=== PATIENT | female | born 1945 | race Caucasian/White ===

== ENCOUNTER 2018-03-07 22:17 | Inpatient (IN) | payer OTHER ==
[~2018-03-07] VITALS: Ht 157.5 cm; Wt 55.5 kg
--- NOTE | ~2018-03-07 | HEMODYNAMI ---
PATIENT:RAMON PIERCE MEDICAL RECORD: [id number] : 49 [address] [id number] ADMISSION DATE: 03/08/18 Generatedon:03/09/201810:59 Patient name: RAMON PIERCE Patient #: [id number] SSN: : 1945 Date of study: 03/09/2018 Page: Of Hemodynamic Procedure Report Patient Data Patient Demographics Procedure consent was obtained First Name: RAMON Gender: Female Last Name: STAN : 1945 Patient #: [id number] Age: 72 year(s) Race: Unknown Additional ID: [id number] Contact details Address: [address] [place] [address] State: [place] City: [place] Zip code: [address] Past Medical History Allergies: No known allergies Admission Admission Data Admission Date: 03/08/2018 Admission Time: 0:08 Room #: [facility] Height (in.): 61.81 BSA: 1.55 (m2) Height (cm.): 157 BMI: 22.72 (kg/m2) Weight (lbs.): 123.46 Weight (kg.): 56 Procedure Procedure Types Cath Procedure Diagnostic Procedure C [facility] w/Coronaries FFR/IVUS Intra-Coronary IVUS Initial Intra-Coronary IVUS Additional Sedation Charges Moderate Sedation up to 15 minutes PCI Procedure Coronary Stent Coronary Stent Initial x2 Procedure Description Procedure Date Procedure Date: 03/09/2018 Procedure Start Time: 10:39 Procedure End Time: 10:57 Procedure Staff Name Function Dagoberto Douglass MD Performing Physician Cristine Willingham RN Nurse Gera Glass RT Scrub Eleni Rayo RT Monitor Procedure Data Cath Procedure Fluoroscopy Diagnostic fluoroscopy Total fluoroscopy Time: 5.2 time: 5.2 min min Diagnostic fluoroscopy Total fluoroscopy dose: 411 dose: 411 mGy mGy Contrast Material Contrast Material Type Amount (ml) Isovue 300 155 Entry Location Entry Primary Successful Side Size Upsize Upsize Entry Closure Estrada ccessful Closure Location (Fr) 1 (Fr) 2 (Fr) Remarks Device Remarks Radial Right 6 Fr Mechanical artery Short Compression Estimated blood loss: 10 ml Diagnostic catheters Device Type Used For End Catheter Placement DIAGNOSTIC Zavalla 110cm 5 Procedure Fr catheter ([id number]) Procedure Complications No complications Procedure Medications Medication Administration Route Dosage 0.9% NaCl I.V. 100 ml/hr Oxygen etCO2 Nasal cannula 2 l/min Lidocaine 2% added to field 20 Heparin Flush Bag added to field 2 bags (1000units/500ml NS) Radial Cocktail added to field 1 syringe (Verapomil 2mg/Nitro 400mcg/Heparin 1500units) Versed I.V. 2 mg Fentanyl I.V. 50 mcg Heparin Bolus I.V. 4000 units Integrilin (Bolus I.V. 5 ml 2mg/ml) Versed I.V. 1 mg Fentanyl I.V. 25 mcg Plavix P.O. 600 mg Hemodynamics Rest BSA: 1.55 (m2) O2 Consumption: Estimated: 151.17 (ml/min) O2 Consumption indexed : Estimated:97.53 (ml/min/m) Heart Rate: 84 (bpm) Snapshots Pre Cath Intra NCS Post Cath Vital Signs Time Heart Resp SPO2 etCO2 NIBP Rhythm Pain Sedation Rate (ipm) (%) (mmHg) (mmHg) Status Level (bpm) 10:27:56 112 17 96 24.2 117/68(97) NSR 0 (11) 10(A) , No pain 10:32:10 108 27 96 24.9 109/64(82) NSR 0 (11) 10(A) , No pain 10:37:06 105 26 97 25.7 95/62(76) NSR 0 (11) 10(A) , No pain 10:41:17 102 20 96 26 82/47(62) NSR 0 (11) 10(A) , No pain 10:45:18 96 22 96 27.8 98/59(74) NSR 0 (11) 9(A) , No pain 10:49:24 100 20 99 20 103/63(84) NSR 0 (11) 10(A) , No pain 10:53:30 101 24 99 23.4 109/68(88) NSR 0 (11) 10(A) , No pain Medications Time Medication Route Dose Verified Delivered Reason Not es Effectiveness by by 10:32:34 0.9% NaCl I.V. 100 Dagoberto Cristine used for ml/hr Evonne Willingham online user experience strategist 10:32:41 Oxygen etCO2 2 l/min Dagoberto Cristine used for Nasal Evonne Willingham procedure cannula RN 10:32:46 Lidocaine 2% added 20ml Dagoberto Dagoberto for local to vial Evonne Douglass MD anesthetic field 10:32:51 Heparin Flush added 2 bags Dagoberto Hendricksonrey used for Bag to Evonne Douglass MD procedure (1000units/500ml field NS) 10:32:57 Radial Cocktail added 1 Dagoberto Dagoberto used for (Verapomil to syringe Evonne Douglass MD procedure 2mg/Nitro field 400mcg/Heparin 1500units) 10:37:40 Versed I.V. 2 mg Dagoberto Cristine for sedation Evonne Willingham RN 10:37:45 Fentanyl I.V. 50 mcg Dagoberto Cristine for sedation Evonne Willingham RN 10:42:42 Versed I.V. 1 mg Dagoberto Cristine for sedation Evonne Willingham RN 10:42:48 Fentanyl I.V. 25 mcg Dagoberto Cristine for sedation Evonne Willingham RN 10:43:55 Heparin Bolus I.V. 4000 Dagoberto Cristine for soraida ified units Evonne Willingham anticoagulation with Dr. NILE Douglass 10:45:14 Integrilin I.V. 5 ml Dagoberto Cristine for was rj (Bolus 2mg/ml) Evonne Willingham anticoagulation 5mL RN 10:49:10 Plavix P.O. 600 mg Dagoberto Cristine for Evonne Willingham antiplatelet RN therapy Procedure Log Time Note 10:08:30 Signed procedure consent form obtained from patient. 10:08:31 Diagnostic Cath status Elective 10:08:34 Time tracking: Regular hours (M-F 7:00 - 5:00) 10:08:38 Plan of Care:Hemodynamics will remain stable., Cardiac rhythm will remain stable., Comfort level will be maintained., Respiratory function will remain adequate., Patient/ family verbilizes understanding of procedure., Procedure tolerated without complication., Recovers from procedure without complications.. 10:08:58 Patient allergic to No known allergies 10:09:29 Patient Weight : 123.46 lbs 10:09:35 Patient Height : 61.81 inches 10:09:45 Gera Glass RT(R) sent for patient. Start room use. 10:21:59 Patient received from ICU to CCL 1 Alert and oriented. Tansferred to table in Supine position. 10:22:01 Warm blankets applied, and ethan hugger turned on for patient comfort. 10:22:01 Correct patient and procedure confirmed by team. 10:22:02 ECG and BP/O2 sat monitors applied to patient. 10:26:45 Vital chart was started 10:32:34 0.9% NaCl 100 ml/hr I.V. was administered by Cristine Willingham RN; used for procedure; 10:32:41 Oxygen 2 l/min etCO2 Nasal cannula was administered by Cristine Willingham RN; used for procedure; 10:32:46 Lidocaine 2% 20ml vial added to field was administered by Dagoberto Douglass MD; for local anesthetic; 10:32:51 Heparin Flush Bag (1000units/500ml NS) 2 bags added to field was administered by Dagoberto Douglass MD; used for procedure; 10:32:57 Radial Cocktail (Verapomil 2mg/Nitro 400mcg/Heparin 1500units) 1 syringe added to field was administered by Dagoberto Douglass MD; used for procedure; 10:34:55 Baseline sample Acquired. 10:34:59 Rhythm: sinus tachycardia 10:35:00 Full Disclosure recording started 10:35:01 Pre-procedure instructions explained to patient. 10:35:02 Pre-op teaching completed and patient verbalized understanding. 10:35:04 Family in patients room. 10:35:05 Patient NPO since Midnight. 10:35:07 Is patient on blood thinner?No 10:35:08 Patient diabetic? No. 10:35:18 Patient not . Patient is over age 55. 10:35:20 Previous problem with sedation/anesthesia? No ? 10:35:21 Snore? Yes 10:35:22 Sleep apnea? No 10:35:23 Deviated septum? No 10:35:24 Opens mouth fully? Yes 10:35:25 Sticks out tongue? Yes 10:35:28 Airway obstruction? Yes COPD' 10:35:35 Dentures? Yes IN TIGHT 10:35:38 Modified Inderjit's test Ulnar < 7 seconds 10:35:40 Patient pain scale 0/10 ?. 10:35:47 IV patent on arrival in right forearm with 0.9% NaCl at O. 10:35:50 Lab results completed and on chart. 10:35:53 Right Radial & Right Groin area was prepped with chlora-prep and draped in sterile fashion 10:35:55 Alarms reviewed by R. N. 10:35:55 Sharps counted by scrub and verified by R.N. 10:35:56 --------ALL STOP TIME OUT------ 10:35:56 Final Timeout: patient, procedure, and site verified with staff and physician. All members of the team are in agreement. 10:35:58 Right Radial & Right Groin site verified by team. 10:36:03 Sedation plan: IV Moderate Sedation Medication:Versed, Fentanyl 10:36:06 Physical assessment completed. ASA score P 2 - A patient with mild systemic disease as per Dagoberto Douglass MD. 10:36:09 Use device set Radial Dx or PCI 10:36:10 ACIST Syringe (10727) opened to sterile field. 10:36:11 Medline Cath Pack ([id number]) opened to sterile field. 10:36:12 ACIST Hand Control (54500) opened to sterile field. 10:36:12 ACIST Manifold (53282) opened to sterile field. 10:36:13 Tegaderm 4 x 4 (1626W) opened to sterile field. 10:36:14 Bag Decanter (2002S) opened to sterile field. 10:36:15 DIAGNOSTIC WIRE .035 260cm J wire (967725) opened to sterile field. 10:36:15 MBrace Wrist Support ([id number]) opened to sterile field. 10:36:17 SHEATH 6FR Slender (43-1289) opened to sterile field. 10:37:40 Versed 2 mg I.V. was administered by Crisitne Willingham RN; for sedation; 10:37:45 Fentanyl 50 mcg I.V. was administered by Cristine Willingham RN; for sedation; 10:38:42 Procedure started. 10:39:50 Local anesthetic to right radial artery with Lidocaine 2% by Dagoberto Douglass MD.INITIAL ACCESS ONLY 10:40:04 A 6 Fr Short sheath was inserted into the Right Radial artery 10:40:15 A DIAGNOSTIC Zavalla 110cm 5 Fr catheter (536388) was advanced over the wire and used for Procedure. 10:40:33 LV gram done using SPRING 10:40:35 Injector settings: Ml/sec: 7, Volume: 15, 10:41:00 EF : 20 % 10:42:04 LCA angiography performed. 10:42:26 RCA angiography performed. 10:42:31 Catheter exchanged over wire. 10:42:42 Versed 1 mg I.V. was administered by Cristine Willingham RN; for sedation; 10:42:48 Fentanyl 25 mcg I.V. was administered by Cristine Willingham RN; for sedation; 10:42:54 INFLATOR Merit BasixCompak (MN1114) opened to sterile field. 10:42:55 CHOICE PT Extra Support 182cm wire ([id number]) opened to sterile field. 10:42:55 [place] IVUS Catheter (18352L) opened to sterile field. 10:43:02 GUIDE 6FR XBLAD 3.5 catheter ([id number]) opened to sterile field. 10:43:50 6 Fr XBLAD 3.5 guide catheter was inserted over the wire 10:43:55 Heparin Bolus 4000 units I.V. was administered by Cristine Willingham RN; for anticoagulation; verified with Dr. Douglass 10:44:29 CHOICE ES 182 wire advanced. 10:44:48 Wire advanced across lesion. 10:45:14 Integrilin (Bolus 2mg/ml) 5 ml I.V. was administered by Cristine Willingham RN; for anticoagulation; wasted 5mL 10:46:02 IVUS catheter advanced over wire. 10:46:03 IVUS pass to LMCA AND LAD lesion performed. 10:46:04 IVUS catheter removed over wire. 10:47:47 Place stent Inflation Number: 1 A INTEGRITY RX 3.5 x 26 stent ([id number]) was prepped and advanced across the Mid LAD. The stent was deployed at 13 DANIEL for 0:10 (min:sec). 10:48:10 Stent catheter was removed intact over wire. 10:48:14 Wire redirected to RAMUS. 10:48:19 Wire advanced across lesion. 10:49:10 Plavix 600 mg P.O. was administered by Cristine Willingham RN; for antiplatelet therapy; 10:49:36 Inflate balloon Inflation number: 1 A INTEGRITY RX 2.5 x 18 stent ([id number]) was prepped and advanced across the Ramus, then inflated to 13 DANIEL for 0:13 (min:sec). 10:49:57 Stent catheter was removed intact over wire. 10:52:33 Place stent Inflation Number: 2 A INTEGRITY RX 2.5 x 14 stent ([id number]) was prepped and advanced across the Ramus. The stent was deployed at 13 DANIEL for 0:10 (min:sec). 10:53:32 Stent catheter was removed intact over wire. 10:53:33 Wire removed. 10:53:33 Guide catheter removed. 10:53:45 Procedure ended.(Physican Out) 10:53:55 TR BAND Standard ([id number]) opened to sterile field. 10:54:02 Sheath removed intact; hemostasis achieved with Mechanical Compression to the Right Radial artery. 10:54:07 Fluoroscopy time 05.20 minutes. 10:54:11 Fluoroscopy dose: 411 mGy 10:54:11 Flurop Dose total: 411 10:54:14 Contrast amount:Isovue 300 155ml. 10:54:16 Sharps counted by scrub and verified by R.N. 10:54:18 TR band inflated with 13cc of air. 10:54:22 Post-procedure physical assessment completed. ASA score P 2 - A patient with mild systemic disease as per Dagoberto Douglass MD. 10:54:26 Post procedure rhythm: sinus tachycardia 10:54:28 Estimated blood loss: 10 ml 10:54:29 Post procedure instruction explained to patient.Patient verbalizes understanding. 10:54:30 Patient needs reinforcement of post procedure teaching. 10:55:40 Procedure type changed to Cath procedure, Diagnostic procedure, LHC, LHC w/Coronaries, FFR/IVUS, Intra-Coronary IVUS Initial, Intra-Coronary IVUS Additional, Sedation Charges, Moderate Sedation up to 15 minutes, PCI procedure, Coronary Stent, Coronary Stent Initial x2 10:56:32 Procedure and supply charges have been captured, reviewed, submitted and are correct. 10:56:34 Procedure Complication : No complications 10:56:37 Vital chart was stopped 10:56:37 See physician's report for complete and final results. 10:56:40 Report given to ICU. 10:56:57 Patient transfered to ICU with Bed. 10:56:59 Procedure ended. 10:56:59 Full Disclosure recording stopped 10:57:02 End room use (Document Last) Intervention Summary Intervention Notes Time ActionType Lesion and Equipment Action# Pressure Duration Attributes Used 10:47:47 Place stent Mid LAD INTEGRITY RX 1 13 00:10 3.5 x 26 stent ([id number]) 10:49:36 Inflate Ramus INTEGRITY RX 1 13 00:13 balloon 2.5 x 18 stent ([id number]) 10:52:33 Place stent Ramus INTEGRITY RX 2 13 00:10 2.5 x 14 stent ([id number]) Device Usage Item Name Manufacture Quantity Catalog Number Hospital Part Current Mini mal Lot# / Charge Number Stock Stock Serial# Code ACIST Acist 1 60092 671375 284170 445986 20 Syringe Medical (09446) Systems Inc Medline Cath Medline 1 [id number] 054083 89098 783733 5 Pack ([id number]) ACIST Hand Acist 1 60495 203380 674961 202002 5 Control Medical (68867) Systems Inc ACIST Acist 1 46565 301109 566716 449604 5 Manifold Medical (17879) Systems Inc Tegaderm 4 x 3M 1 1626W 702207 292450 075725 5 4 (1626W) Bag Decanter Microtek 1 2002S 341733 94288 339289 5 (2002S) Medical Inc. DIAGNOSTIC St Kish[place] 1 079151 926467 615996 727767 30 WIRE .035 260cm J wire (000415) MBrace Wrist Advanced 1 140-0250-00 460199 50730 595465 5 Support Vascular ([id number]) Dynamics SHEATH 6FR Terumo 1 [id number] 723142 785518 346955 5 Slender (80-1060) DIAGNOSTIC Terumo 1 40-2943 002935 229911 376886 5 Zavalla 110cm 5 Fr catheter (331133) INFLATOR Merit 1 [id number] 068787 093206 831196 15 [facility] Medical BasixCompak (HA3049) CHOICE PT [place] 1 [id number] 332561 679251 396773 5 Extra Scientific Support 182cm wire ([id number]) [place] 1 60905F 995238 999880 167823 8 [place] IVUS Catheter (39139I) GUIDE 6FR Cardinal 1 [id number] 152837 949964 973825 10 XBLAD 3.5 Health catheter (89676974) INTEGRITY RX Medtronic 1 [id number] 598549 625744 848590 5 [id number] 3.5 x 26 stent ([id number]) INTEGRITY RX Medtronic 1 [id number] 337973 381456 590741 5 [id number] 2.5 x 18 stent ([id number]) INTEGRITY RX Medtronic 1 [id number] 759335 533674 987154 5 [id number] 2.5 x 14 stent ([id number]) TR BAND Terumo 1 [id number] 694803 883867 429205 40 Standard ([id number]) Signature Audit [place] Stage Time Signature Unsigned Intra-Procedure 03/09/2018 Eleni Rayo 10:59:30 AM RT(R) Signatures Monitor : Eleni Rayo Signature : RT Date : Time : [place] [address] [place] [address]
--- NOTE | ~2018-03-07 | HEMODYNAMI ---
PATIENT:RAMON PIERCE MEDICAL RECORD: [id number] : 49 [address] [id number] ADMISSION DATE: 03/08/18 Generatedon:03/10/20189:29 Patient name: RAMON PIERCE Patient #: [id number] SSN: : 1945 Date of study: 03/10/2018 Page: Of Hemodynamic Procedure Report Patient Data Patient Demographics Procedure consent was obtained First Name: RAMON Gender: Female Last Name: STAN : 1945 Patient #: [id number] Age: 72 year(s) Race: Unknown Additional ID: [id number] Contact details Address: [address] [place] [address] State: [place] City: [place] Zip code: [address] Past Medical History Allergies: No known allergies Admission Admission Data Admission Date: 03/08/2018 Admission Time: 0:08 Room #: [facility] Height (in.): 61.81 BSA: 1.58 (m2) Height (cm.): 157 BMI: 23.53 (kg/m2) Weight (lbs.): 127.87 Weight (kg.): 58 Lab Results Lab Result Date: 03/10/2018 Lab Result Time: 0:00 Biochemistry Name Units Result Min Max BUN mg/dl 31 --(----)-* 7 18 Creatinine mg/dl 1.3 --(---*)-- 0.6 1.3 CBC Name Units Result Min Max Hemoglobin g/dl 11.9 *-(----)-- 13.5 17.5 Procedure Procedure Types Cath Procedure Diagnostic Procedure Sedation Charges Moderate Sedation up to 15 minutes PCI Procedure Coronary Stent Coronary Stent Initial Procedure Description Procedure Date Procedure Date: 03/10/2018 Procedure Start Time: 9:07 Procedure End Time: 9:28 Procedure Staff Name Function Dagoberto Douglass MD Performing Physician Eleni Rayo RT Scrub Cristine Willingham RN Nurse Kami Hyatt RN Car Park Attendant Avelino Canela RT Monitor Procedure Data Cath Procedure Fluoroscopy Diagnostic fluoroscopy Total fluoroscopy Time: 7.5 time: 7.5 min min Diagnostic fluoroscopy Total fluoroscopy dose: 492 dose: 492 mGy mGy Contrast Material Contrast Material Type Amount (ml) Isovue 300 75 Entry Location Entry Primary Successful Side Size Upsize Upsize Entry Closure Succes sful Closure Location (Fr) 1 (Fr) 2 (Fr) Remarks Device Remarks Femoral Right 6 Fr Exoseal artery Short Estimated blood loss: 10 ml Procedure Complications No complications Procedure Medications Medication Administration Route Dosage 0.9% NaCl I.V. 100 ml/hr Oxygen etCO2 Nasal cannula 2 l/min Lidocaine 2% added to field 20 Heparin Flush Bag added to field 2 bags (1000units/500ml NS) Versed I.V. 2 mg Fentanyl I.V. 50 mcg Versed I.V. 2 mg Fentanyl I.V. 50 mcg Heparin Bolus I.V. 4000 units Hemodynamics Rest BSA: 1.58 (m2) HGB: 11.9 (g/dl) O2 Consumption: Estimated: 172.01 (ml/min) O2 Co nsumption indexed: Estimated:108.87 (ml/min/m) Heart Rate: 114 (bpm) Snapshots Pre Cath Intra NCS Post Cath Vital Signs Time Heart Resp SPO2 etCO2 NIBP (mmHg) Rhythm Pain Sedation Rate (ipm) (%) (mmHg) Status Level (bpm) 8:42:15 116 16 96 28.8 130/91(114) NSR 0 (11) 10(A) , No pain 8:46:23 114 16 96 25.7 123/90(112) NSR 0 (11) 10(A) , No pain 8:50:30 112 16 97 24.2 120/80(95) NSR 0 (11) 10(A) , No pain 8:54:38 108 18 96 25.6 116/75(98) NSR 0 (11) 10(A) , No pain 8:58:46 107 18 96 27.8 112/76(92) NSR 0 (11) 10(A) , No pain 9:02:52 106 21 96 20.7 114/72(90) NSR 0 (11) 9(A) , No pain 9:07:00 105 18 97 20 114/74(85) NSR 0 (11) 10(A) , No pain 9:11:10 103 21 95 20 107/68(89) NSR 0 (11) 9(A) , No pain 9:15:15 102 27 96 20 107/68(83) NSR 0 (11) 9(A) , No pain 9:19:21 102 27 97 20 106/71(88) NSR 0 (11) 10(A) , No pain 9:23:23 96 21 98 21.5 119/77(98) NSR 0 (11) 10(A) , No pain 9:27:31 103 25 95 0 123/76(93) NSR 0 (11) 10(A) , No pain Medications Time Medication Route Dose Verified Delivered Reason Notes Effectiveness by by 8:41:24 0.9% NaCl I.V. 100 Dagoberto Cristine used for ml/hr Evonne Willingham home management supervisor 8:41:32 Oxygen etCO2 2 Dagoberto Cristine used for Nasal l/min Evonne Willingham procedure cannula RN 8:41:38 Lidocaine 2% added 20ml Dagoberto Dagoberto for local to vial Evonne Douglass MD anesthetic field 8:41:42 Heparin Flush added 2 Dagoberto Dagoberto used for Bag to bags Evonne Douglass MD procedure (1000units/500ml field NS) 9:00:20 Versed I.V. 2 mg Dagoberto Cristine for sedation Evonne Willingham RN 9:00:25 Fentanyl I.V. 50 Dagoberto Cristine for sedation mcg Evonne Willingham RN 9:08:23 Versed I.V. 2 mg Dagoberto Cristine for sedation Evonne Willingham RN 9:08:28 Fentanyl I.V. 50 Dagoberto Cristine for sedation mcg Evonne Willingham RN 9:08:34 Heparin Bolus I.V. 4000 Dagoberto Cristine for verifi ed units Evonne Willingham anticoagulation with Dr. NILE Douglass Procedure Log Time Note 8:27:57 Kami Hyatt RN sent for patient. Start room use. 8:27:58 Signed procedure consent form obtained from patient. 8:28:00 Diagnostic Cath status Elective 8:28:01 Time tracking: Regular hours (M-F 7:00 - 5:00) 8:28:01 Patient Weight : 127.87 lbs 8:28:01 Patient Height : 61.81 inches 8:28:05 Plan of Care:Hemodynamics will remain stable., Cardiac rhythm will remain stable., Comfort level will be maintained., Respiratory function will remain adequate., Patient/ family verbilizes understanding of procedure., Procedure tolerated without complication., Recovers from procedure without complications.. 8:28:34 Lab Result : BUN 31 mg/dl 8::34 Lab Result : Hemoglobin 11.9 g/dl 8:28:34 Lab Result : Creatinine 1.3 mg/dl 8:29:01 Patient allergic to No known allergies 8:33:38 Patient received from Med II to CCL 1 Alert and oriented. Tansferred to table in Supine position. 8:33:39 Warm blankets applied, and ethan hugger turned on for patient comfort. 8:33:40 Correct patient and procedure confirmed by team. 8:33:41 ECG and BP/O2 sat monitors applied to patient. 8:41:14 Vital chart was started 8:41:24 0.9% NaCl 100 ml/hr I.V. was administered by Cristine Willingham RN; used for procedure; 8:41:32 Oxygen 2 l/min etCO2 Nasal cannula was administered by Cristine Willingham RN; used for procedure; 8:41:38 Lidocaine 2% 20ml vial added to field was administered by Dagoberto Douglass MD; for local anesthetic; 8:41:42 Heparin Flush Bag (1000units/500ml NS) 2 bags added to field was administered by Dagoberto Douglass MD; used for procedure; 8:46:26 Baseline sample Acquired. 8:46:32 Rhythm: sinus tachycardia 8:46:33 Full Disclosure recording started 8:46:42 H&P Date Dictated: 03/08/2018 Within 30 days and on chart.. 8:46:43 Pre-procedure instructions explained to patient. 8:46:43 Pre-op teaching completed and patient verbalized understanding. 8:46:45 Family in patients room. 8:46:46 Patient NPO since Midnight. 8:46:48 Is the patient allergic to Iodine/contrast media? No. 8:46:49 Is patient on blood thinner?Yes 8:46:51 ACC The patient was administered the following blood thiners within the last 24 hours: ACCPlavix 8:46:53 Patient diabetic? No. 8:46:55 Previous problem with sedation/anesthesia? No ? 8:46:56 Snore? Yes 8:46:57 Sleep apnea? No 8:46:58 Deviated septum? No 8:46:59 Opens mouth fully? Yes 8:46:59 Sticks out tongue? Yes 8:47:03 Airway obstruction? Yes COPD 8:47:09 Dentures? Yes IN TIGHT 8:47:14 Pre procedure: right dorsailis pedis pulse 2+ Normal; easily identifiable; not easily obliterated 8:47:17 Patient pain scale 0/10 ?. 8:47:22 IV patent on arrival in right forearm with 0.9% NaCl at [facility]. 8:47:24 Lab results completed and on chart. 8:47:26 Right groin area was prepped with chlora-prep and draped in sterile fashion 8:47:27 Alarms reviewed by R. N. 8:47:27 Sharps counted by scrub and verified by R.N. 8:47:30 ACIST Syringe (91679) opened to sterile field. 8:47:31 Bag Decanter (2002S) opened to sterile field. 8:47:32 ACIST Hand Control (12389) opened to sterile field. 8:47:33 ACIST Manifold (93821) opened to sterile field. 8:47:34 Tegaderm 4 x 4 (1626W) opened to sterile field. 8:47:38 Medline Cath Pack ([id number]) opened to sterile field. 8:47:39 DIAGNOSTIC WIRE .035 260cm J wire (857361) opened to sterile field. 8:47:52 CHOICE PT Extra Support 182cm wire ([id number]) opened to sterile field. 8:47:52 INFLATOR Merit BasixCompak (BY6438) opened to sterile field. 8:47:53 SHEATH 6FR [place] (EUR168) opened to sterile field. 8:52:29 Zero performed for pressure channel P1 8:59:38 Physician arrived 8:59:38 --------ALL STOP TIME OUT------ 8:59:38 Final Timeout: patient, procedure, and site verified with staff and physician. All members of the team are in agreement. 8:59:41 Right groin site verified by team. 8:59:43 Physical assessment completed. ASA score P 2 - A patient with mild systemic disease as per Dagoberto Douglass MD. 8:59:46 Sedation plan: IV Moderate Sedation Medication:Versed, Fentanyl 9:00:20 Versed 2 mg I.V. was administered by Cristine Willingham RN; for sedation; 9:00:25 Fentanyl 50 mcg I.V. was administered by Cristine Willingham RN; for sedation; 9:01:06 GUIDE 6FR AR 2.0 catheter ([id number]) opened to sterile field. 9:07:10 Procedure started. 9:07:12 Local anesthetic to right femoral artery with Lidocaine 2% by Dagoberto Douglass MD.INITIAL ACCESS ONLY 9:07:19 A 6 Fr Short sheath was inserted into the Right Femoral artery 9:07:42 6 Fr AR 2 guide catheter was inserted over the wire 9:08:23 Versed 2 mg I.V. was administered by Cristine Willingham RN; for sedation; 9:08:28 Fentanyl 50 mcg I.V. was administered by Cristine Willingham RN; for sedation; 9:08:34 Heparin Bolus 4000 units I.V. was administered by Cristine Willingham RN; for anticoagulation; verified with Dr. Douglass 9:10:03 Guide Catheter removed. unable to cannulate vessel. 9:10:08 GUIDE 6FR HS I catheter (LA6HSI) opened to sterile field. 9:10:14 6 Fr HS I guide catheter was inserted over the wire 9:12:28 Guide Catheter removed. unable to cannulate vessel. 9:12:56 GUIDE 6FR MB 1 catheter (LA6MB1) opened to sterile field. 9:13:05 6 Fr MB 1 guide catheter was inserted over the wire 9:13:57 CHOICE PT ES wire advanced. 9:15:41 Wire advanced across lesion. 9:18:22 The INTEGRITY RX 2.5 x 26 stent ([id number]) was advanced then removed because of failure to cross lesion 9:19:29 Inflate balloon Inflation number: 1 A EUPHORA 2.5 x 15 Balloon ([id number]) was prepped and advanced across the Mid RCA, then inflated to 11 DANIEL for 0:10 (min:sec). 9:19:40 Inflation number: 2 The EUPHORA 2.5 x 15 Balloon ([id number]) was reinflated across the Mid RCA, to 13 DANIEL for 0:10 (min:sec). 9:19:53 Inflation number: 3 The EUPHORA 2.5 x 15 Balloon ([id number]) was reinflated across the Mid RCA, to 13 DANIEL for 0:10 (min:sec). 9:20:00 Balloon removed over the wire. 9:20:50 Place stent Inflation Number: 4 A INTEGRITY RX 2.5 x 26 stent ([id number]) was prepped and advanced across the Mid RCA. The stent was deployed at 13 DANIEL for 0:10 (min:sec). 9:20:56 Inflation number: 5 The stent balloon was then re-inflated across the Mid RCA to 17 DANIEL for 0:10 (min:sec). 9:22:01 Stent catheter was removed intact over wire. 9:24:08 Place stent Inflation Number: 1 A INTEGRITY RX 2.5 x 26 stent ([id number]) was prepped and advanced across the Prox RCA. The stent was deployed at 17 DANIEL for 0:10 (min:sec). 9:24:10 Stent catheter was removed intact over wire. 9:24:12 Wire removed. 9:24:12 Guide catheter removed. 9:24:19 EXOSEAL 6Fr (EX600) opened to sterile field. 9:24:28 Sheath removed intact; hemostasis achieved with Exoseal to the Right Femoral artery. 9:24:30 Procedure ended.(Physican Out) 9:25:16 Fluoroscopy time 07.50 minutes. 9:25:21 Flurop Dose total: 492 9:25:21 Fluoroscopy dose: 492 mGy 9:25:30 Contrast amount:Isovue 300 75ml. 9:25:32 Sharps counted by scrub and verified by R.N. 9:25:34 Insertion/operative site no bleeding no hematoma. 9:25:36 Post-op/insertion site Right Femoral artery dressed using a 4 x 4 and Tegaderm. 9:25:41 Post right femoral artery:stable, soft, clean and dry 9:25:42 Post Procedure Pulses reassessed and unchanged 9:25:50 Post-procedure physical assessment completed. ASA score P 3 - A patient with severe systemic disease as per Dagoberto Douglass MD. 9:26:13 FEMSTOP Gold (O10802) opened to sterile field. 9:26:20 Femstop placed over the right femoral artery at 150 mmHg. Hemostasis achieved. 9::52 Post procedure rhythm: unchanged. 9::54 Estimated blood loss: 10 ml 9::55 Post procedure instruction explained to patient.Patient verbalizes understanding. 9::56 Patient needs reinforcement of post procedure teaching. 9:27:29 Procedure type changed to Cath procedure, Diagnostic procedure, Sedation Charges, Moderate Sedation up to 15 minutes, PCI procedure, Coronary Stent, Coronary Stent Initial 9::48 Procedure and supply charges have been captured, reviewed, submitted and are correct. 9:27:50 Procedure Complication : No complications 9::52 Vital chart was stopped 9::53 See physician's report for complete and final results. 9::54 Report given to ICU. 9::57 Patient transfered to ICU with Stretcher. 9:28:00 Procedure ended. 9:28:00 Full Disclosure recording stopped 9:28:09 ACC-PCI Only Patient was given prescriptions, or instructed by Dagoberto Douglass MD to start/continue the following medications upon discharge: Aspirin, Plavix 9:28:11 End room use (Document Last) Intervention Summary Intervention Notes Time ActionType Lesion and Equipment Action# Pressure Duration Attributes Used 9:18:22 Discard INTEGRITY RX Stent 2.5 x 26 stent ([id number]) 9:19:29 Inflate Mid RCA EUPHORA 2.5 1 11 00:10 balloon x 15 Balloon ([id number]) 9:19:40 Reinflate Mid RCA EUPHORA 2.5 2 13 00:10 balloon x 15 Balloon ([id number]) 9:19:53 Reinflate Mid RCA EUPHORA 2.5 3 13 00:10 balloon x 15 Balloon ([id number]) 9:20:50 Place stent Mid RCA INTEGRITY RX 4 13 00:10 2.5 x 26 stent ([id number]) 9:20:56 Reinflate Mid RCA INTEGRITY RX 5 17 00:10 stent 2.5 x 26 balloon stent ([id number]) 9:24:08 Place stent Prox RCA INTEGRITY RX 1 17 00:10 2.5 x 26 stent ([id number]) Device Usage Item Name Manufacture Quantity Catalog Number Hospital Part Current [facility] Lot# / Charge Number Stock Stock Serial# Code [facility] 1 06386 790587 013741 372181 20 Syringe Medical (15754) Systems Inc Bag Decanter Microtek 1 2001S 677565 20846 605507 5 (2001S) Medical Inc. ACIST Hand Acist 1 33217 346297 207216 547735 5 Control Medical (23399) Systems Inc ACIST Acist 1 08429 110243 323654 663120 5 Manifold Medical (49843) Systems Inc Tegaderm 4 x 3M 1 1626W 350417 705351 351035 5 4 (1626W) Medline Cath Medline 1 [id number] 437021 27430 687428 5 Pack ([id number]) DIAGNOSTIC St Kishan 1 971378 130402 576393 434116 30 WIRE .035 260cm J wire (826180) CHOICE PT [place] 1 [id number] 363661 132159 104705 5 Extra Scientific Support 182cm wire ([id number]) INFLATOR Big Six 1 NC3643 657722 657805 703162 15 Gogetit BasixCompak (SG3954) SHEATH 6FR Terumo 1 RYN833 638033 589990 814770 40 [place] (BEX589) GUIDE 6FR AR Medtronic 1 [id number] 265128 33947 953676 1 2.0 catheter (AO6VF98) GUIDE 6FR HS Medtronic 1 LA6HSI 973664 93096 459743 1 I catheter (LA6HSI) GUIDE 6FR MB Medtronic 1 LA6MB1 912411 02356 749619 1 1 catheter (LA6MB1) INTEGRITY RX Medtronic 2 [id number] 634089 213901 484044 5 [id number] 2.5 x 26 [id number] stent ([id number]) EUPHORA 2.5 Medtronic 1 [id number] 343984 392903 033545 5 [id number] x 15 Balloon ([id number]) EXOSEAL 6Fr Cardinal 1 EX600 470086 706968 975138 10 (EX600) Health FEMSTOP Gold St Kishan 1 Y98059 977466 224956 755341 5 (A34557) Signature Audit [place] Stage Time Signature Unsigned Intra-Procedure 03/10/2018 Avelino Canela 9:29:09 AM RT(R) Signatures Monitor : Avelino Canela RT Signature : Date : Time : [address] [place] [address]
[2018-03-07] MEDS ORDERED: MULTIVITAMIN (22:30)
[2018-03-07] MEDS ORDERED: PRINIVIL20 MG PO (22:30)
[2018-03-07 23:23] LABS: BASOPHILS 0.4 % (0-2); EOSINOPHILS 0.7 % (0-7); HEMATOCRIT 42.7 % (36.0-48.0); HEMOGLOBIN 14.2 g/dL (12-16); IMMATURE GRANULOCYTES 0.2 % (0-5); LYMPHOCYTES 25.8 % (15-50); MCH 34.1 pg (26.0-34.0); MCHC 33.3 g/dL (31.0-37.0); MCV 102.6 fL (80.0-100.0); MEAN PLATELET VOLUME 10.8 fL (7.4-10.4); MONOCYTES 4.7 % (2-11); NEUTROPHILS 68.2 % (40-80); PLATELET COUNT 301 10x3/uL (130-400); RBC 4.16 10x6/uL (4.00-5.40); RDW 15.1 % (11.5-14.5); WBC 10.6 10x3/uL (4.8-10.8)
--- NOTE | 2018-03-07 23:23 | NUR ---
INCREASED PROPOFOL TO 10MCG/KG/MIN BP 127/77
[2018-03-07 23:25] VITALS: BP 122/72
--- NOTE | 2018-03-07 23:30 | NUR ---
UPPED PROPOFOL TO 15 MCG/KG/MIN AT THIS TIME. BP 145/93
[2018-03-07 23:31] LABS: APTT 24.8 SECONDS (22.8-39.4); PROTIME 12.7 SECONDS (11.6-15.0)
[2018-03-07 23:37] LABS: ALBUMIN 3.3 g/dL (3.4-5.0); ALKALINE PHOSPHATASE 92 U/L (46-116); ALT (SGPT) 64 U/L (10-68); BILIRUBIN - TOTAL 0.16 mg/dL (0.2-1.3); CALC OSMOLALITY 293 mosm/kg (275-300); CALCIUM 8.1 mg/dL (8.5-10.1); CARBON DIOXIDE 22.6 mmol/L (21.0-32.0); CHLORIDE - SERUM 101 mmol/L (98-107); CREATININE - SERUM 1.5 mg/dL (0.6-1.3); GLUCOSE 372 mg/dL (74-106); POTASSIUM - SERUM 4.1 mmol/L (3.5-5.1); PROTEIN - SERUM 7.2 g/dL (6.4-8.2); SODIUM 137 mmol/L (136-145); UREA NITROGEN 27 mg/dL (7-18); eGFR NON AFRICAN AMERICAN 36 mL/min (90-120)
[2018-03-07 23:51] VITALS: BP 96/41
--- NOTE | 2018-03-07 23:51 | NUR ---
INCREASED PROPOFOL TO 25 MCG/KG/MIN PER EDP MARILUZ. BP 96/41 AT THIS TIME
[2018-03-07 23:52] LABS: CKMB 3.7 U/L (0.0-3.6); CREATINE KINASE 105 UL (21-215); MAGNESIUM - SERUM 1.9 mg/dL (1.8-2.4); PRO BNP 26563 pg/mL (0-125)
[2018-03-07 23:53] LABS: TROPONIN-I 0.084 ng/mL (0.000-0.060)
[2018-03-08] VITALS (33 sets, daily range): BP systolic 77–142; BP diastolic 29–98; Ht 157.5 cm; Wt 55.5 kg
--- NOTE | 2018-03-08 00:20 | NUR ---
CALLED REPORT TO BROCK DOWD
--- NOTE | 2018-03-08 01:10 | NUR ---
Received patient from ER to 2312 via bed, connected to monitor. Patient sedated on vent with eyes closed, coarse sounds noted bilateral upper and mid with diminished lower lobes. Oral care/suctioning provided, repositioned for comfort. No further needs at this time, see flowsheet for details. All VSS and will continue to monitor.
--- NOTE | 2018-03-08 01:35 | NUR ---
Dr Garcia called and notified of consult, informed Dr Howard to see patient in AM.
--- NOTE | 2018-03-08 03:20 | NUR ---
Reassessment completed per flowsheet, no changes from previous assessment. Patient opens eyes spontaneous/follows instructions, slight agitation noted. Vent settings unchanged, coarse lung sounds noted bilateral upper and mid with diminished lower. All pulses palpable with cap refill < 3 sec, skin warm/dry. Denies pain at this time, oral care/suctioning provided. See flowsheet for details, all VSS and will continue to monitor.
[2018-03-08 03:57] LABS: BASOPHILS 0.1 % (0-2); EOSINOPHILS 0 % (0-7); HEMATOCRIT 39.4 % (36.0-48.0); HEMOGLOBIN 13.4 g/dL (12-16); IMMATURE GRANULOCYTES 0.3 % (0-5); LYMPHOCYTES 2.6 % (15-50); MCH 34.3 pg (26.0-34.0); MCV 100.8 fL (80.0-100.0); MEAN PLATELET VOLUME 10.6 fL (7.4-10.4); PLATELET COUNT 296 10x3/uL (130-400); RBC 3.91 10x6/uL (4.00-5.40); RDW 14.9 % (11.5-14.5); WBC 13.2 10x3/uL (4.8-10.8)
[2018-03-08 04:32] LABS: ANION GAP 16.7 mmol/L (8-16); CALCIUM 7.7 mg/dL (8.5-10.1); CARBON DIOXIDE 23.4 mmol/L (21.0-32.0); CREATININE - SERUM 1.3 mg/dL (0.6-1.3); POTASSIUM - SERUM 4.1 mmol/L (3.5-5.1)
[2018-03-08 04:50] LABS: TROPONIN-I 0.485 ng/mL (0.000-0.060)
--- NOTE | 2018-03-08 05:00 | NUR ---
Patient sedated in bed on vent with eyes closed, no s/s of distress at this time. Sedation vacation performed with patient awakening easily, some anxiety observed due to ETT. Discussed need for ventilator with patient, nodded understanding. Sedation returned to previous amount, patient returned to sleep easily. All VSS and will continue to monitor.
--- NOTE | 2018-03-08 07:15 | NUR ---
REPORT RECEIVED. ASSESSMENT COMPLETE PER FLOW SHEET. VSS. PT SEDATED COMFORTABLE FOLLOWS COMMANDS DENIES NEEDS. ORAL ENODTRACH CARE ADM. REPOSITIONED ON L SIDE. WILL CONTINUE TO MONITOR
--- NOTE | 2018-03-08 11:15 | NUR ---
REASSESSMENT COMPLETE PER FLOW SHEET. VSS. NO NEW CHANGES. AT BEDSIDE. WILL CONTINUE TO MONITOR
--- NOTE | 2018-03-08 13:30 | NUR ---
RT AT BEDSIDE. PT EXTUBATED WITHOUT DIFFICULTY. VSS NO NEW CHANGES WILL CONTINUE TO MONITOR
--- NOTE | 2018-03-08 15:28 | NUR ---
REASSESSMENT COMPLETE PER FLOW SHEET. VSS. NO NEW CHANGES WILL CONTINUE TO MONITOR
--- NOTE | 2018-03-08 19:30 | NUR ---
REC'D TO CARE, ELECTRIC ARC FURNACE OPERATOR PER FLOWSHEET. PT ALERT AND ORINENTED, VSS. CM - ST. LUNGS CTA. O2 4LNC, WILL WEAN PER MD ORDER TOLERATED. PT DENIES PAIN OR NEEDS. C/L IN REACH.
--- NOTE | 2018-03-08 21:00 | NUR ---
NO VISITORS, PT WATCHING TV. DENIES NEEDS.
--- NOTE | 2018-03-08 22:55 | NUR ---
REASSESSMENT PER FLOWSHEET, NO ACUTE CHANGES. VSS. C/L IN REACH.
[2018-03-09] VITALS (24 sets, daily range): BP systolic 93–135; BP diastolic 53–82
--- NOTE | 2018-03-09 01:00 | NUR ---
RESTING QUIETLY, VSS. NPO NOW.
--- NOTE | 2018-03-09 03:13 | NUR ---
REASSESSMENT PER FLOWSHEET, NO ACUTE CHANGES. PT AWAKENS EASILY, VSS. O2 2L NC. PT DENIES NEEDS. ALARMS ON AND C/L IN REACH.
[2018-03-09 04:01] LABS: BASOPHILS 0.1 % (0-2); EOSINOPHILS 0 % (0-7); HEMATOCRIT 35.1 % (36.0-48.0); HEMOGLOBIN 11.9 g/dL (12-16); IMMATURE GRANULOCYTES 0.3 % (0-5); LYMPHOCYTES 8.2 % (15-50); MCH 33.8 pg (26.0-34.0); MCHC 33.9 g/dL (31.0-37.0); MCV 99.7 fL (80.0-100.0); MEAN PLATELET VOLUME 10.4 fL (7.4-10.4); NEUTROPHILS 80.4 % (40-80); PLATELET COUNT 253 10x3/uL (130-400); RBC 3.52 10x6/uL (4.00-5.40); RDW 15.1 % (11.5-14.5); WBC 10.9 10x3/uL (4.8-10.8)
[2018-03-09 04:25] LABS: ANION GAP 14.9 mmol/L (8-16); CALCIUM 7.4 mg/dL (8.5-10.1); CARBON DIOXIDE 24.3 mmol/L (21.0-32.0); CREATININE - SERUM 1.3 mg/dL (0.6-1.3); MAGNESIUM - SERUM 1.6 mg/dL (1.8-2.4); PHOSPHOROUS 2.9 mg/dL (2.5-4.9); POTASSIUM - SERUM 4.2 mmol/L (3.5-5.1)
[2018-03-09] MEDS ORDERED: MERIBIN5 MG PO (04:37)
[2018-03-09] MEDS ORDERED: NIASPAN500 MG PO (04:38)
[2018-03-09] MEDS ORDERED: CALCIUM 500 +1 EAC3 PO (04:38)
[2018-03-09] MEDS ORDERED: [UNRECOGNIZED DRUG - OTHER] (04:39)
--- NOTE | 2018-03-09 05:00 | NUR ---
UPDATED OVER PHONE WITH PT APPROVAL AND [facility] PASSWORD SET UP. PT RESTING QUIETLY, DENIES NEEDS.
--- NOTE | 2018-03-09 07:00 | NUR ---
REPORT RECEIVED. ASSESSMENT COMPLETE PER FLOW SHEET. VSS. NO NEW CHANGES. PT RESTING COMFORTABLY WILL CONTINUE TO MONITOR
--- NOTE | 2018-03-09 10:15 | NUR ---
PT TO ARCHAEOLOGIST NOTIFIED AND AT BEDSIDE.
--- NOTE | 2018-03-09 11:06 | NUR ---
PT BACK FROM [facility] MACHINIST VSS. NOT IN THE WAITING AREA AT THIS TIME. ATTEMPT TO CALL X2 NO ANSWER. WILL TRY AGAIN
--- NOTE | 2018-03-09 11:15 | NUR ---
REASSESSMENT COMPLETE PER FLWO SHEET. VSS. NO NEW CHANGES WILL CONTNIUE TO MONITOR.
--- NOTE | 2018-03-09 13:06 | NUR ---
PT SLEEPING COMFORTABLY AT BEDSIDE NO NEW CAHNGES WILL CONTINUE TO MONITOR
--- NOTE | 2018-03-09 15:00 | NUR ---
REASSESSMENT COMPLETE PER FLOW SHEET. VS. NO NEW CHANGES WILL CONTINUE TO MONTIOR
--- NOTE | 2018-03-09 17:40 | NUR ---
ASSISTED TO SHOWER. NO S/S DISTRESS BACK TO BED. COMPLETE BATH LINEN CHANGE ADM. NO ENW CHANGES WILL CONTINUE TO MONITOR
--- NOTE | 2018-03-09 18:41 | MORECARE ---
CASE MANAGEMENT DISCHARGE SUMMARY PATIENT: RAMON PIERCE UNIT: [id number] ADM DATE: 03/08/18 AGE: 72 : [birth year] SEX: F ROOM/BED: D[facility] AUTHOR: IDRIS EDOUARD PHYSICIAN: REFERRING PHYSICIAN: TAMI RUIZ MD DATE OF SERVICE: 03/09/18 Discharge Plan Patient Name: RAMON PIERCE [facility] [facility] 1945 Planned Disposition: Home Anticipated Discharge Date: Discharge Date: Expected LOS: Initial Reviewer: [email or web address] Initial Review Date: 03/09/2018 Generated: 03/09/18 7:41 pm DCPIA - Discharge Planning Initial Assessment Updated by [email or web address]: Alanis Cavazos on 03/09/18 6:41 pm * Is the patient Alert and Oriented? Yes * How many steps to enter\exit or inside your home? * [facility] [place] * [place] * Preadmission Environment Home with Family * ADLs Independent * Equipment None * List name and contact numbers for known caregivers / representatives who currently or will assist patient after discharge: OMA PIERCE - [facility] - [phone] * Verbal permission to speak to the caregivers and representatives has been obtained from the patient. N/A * Community resources currently utilized None * Additional services required to return to the preadmission environment? No * Can the patient safely return to the preadmission environment? Yes * Has this patient been hospitalized within the prior 30 days at any hospital? No Patient Name: RAMON PIERCE Page 17784 at 1841 All edits/amendments must be made on the electronic document DICTATION DATE: 03/09/181840 CONTRACT POST OFFICE CLERK: EMILY 03/09/181840 RPT#: [id number] DC DATE: STATUS: ADM IN [facility] [address] [place] [address] END OF REPORT
--- NOTE | 2018-03-09 18:48 | MORECARE ---
CASE MANAGEMENT DISCHARGE SUMMARY PATIENT: RAMON PIERCE UNIT: [id number] ADM DATE: 03/08/18 AGE: 72 : [birth year] SEX: F ROOM/BED: D.2312 AUTHOR: JAVAN,DOC PHYSICIAN: REFERRING PHYSICIAN: TAMI RUIZ MD DATE OF SERVICE: 03/09/18 Discharge Plan Patient Name: RAMON PIERCE Facility: [facility]:[place] : 1945 Planned Disposition: Home Anticipated Discharge Date: Discharge Date: Expected LOS: Initial Reviewer: [email or web address] Initial Review Date: 03/09/2018 Generated: 03/09/18 7:47 pm Comments DCP- Discharge Planning Updated by [email or web address]: Alanis Cavazos on 03/09/18 5:[address] Patient Name: RAMON PIERCE Admission Status: ER Accout number: [id number] Admission Date: 03-08-2018 : 1945 Admission Diagnosis: Attending: TAMI RUIZ Current LOS: 1 Anticipated DC Date: Planned Disposition: Home Primary Insurance: [employer] Discharge Planning Comments: CM met with patient at bedside. Patient states she plans on returning to her home with her after discharge. Patient denies any medical equipment in the home or home health services prior to admission. Patient denies any discharge needs. CM will continue to follow and assist as needed with discharge planning / needs. Residential Insurance Inspector: Alanis Cavazos DCPIA - Discharge Planning Initial Assessment Updated by [email or web address]: Alanis Cavazos on 03/09/18 6:41 pm * Is the patient Alert and Oriented? Yes * How many steps to enter\exit or inside your home? * [facility] [place] [facility] * Preadmission Environment Home with Family * ADLs Independent * Equipment None * List name and contact numbers for known caregivers / representatives who currently or will assist patient after discharge: OMA PIERCE - - [phone] * Verbal permission to speak to the caregivers and representatives has been obtained from the patient. N/A * Community resources currently utilized None * Additional services required to return to the preadmission environment? No * Can the patient safely return to the preadmission environment? Yes * Has this patient been hospitalized within the prior 30 days at any hospital? No Last DP export: 03/09/18 5:41 p Patient Name: RAMON PIERCE Page 35336 at 1848 All edits/amendments must be made on the electronic document DICTATION DATE: 03/09/181846 BOAT DISPATCHER: EMILY 03/09/181846 RPT#: [id number] DC DATE: STATUS: ADM IN [facility] [address] [place] [address] END OF REPORT
--- NOTE | 2018-03-09 23:30 | NUR ---
REASSESSMENT PER FLOWSHEET, NO ACUTE CHANGES. VSS. C/L IN REACH.
[2018-03-10] VITALS (10 sets, daily range): BP systolic 98–140; BP diastolic 56–97
[2018-03-10 03:49] LABS: BASOPHILS 0.2 % (0-2); EOSINOPHILS 0.5 % (0-7); HEMATOCRIT 34.5 % (36.0-48.0); HEMOGLOBIN 11.7 g/dL (12-16); IMMATURE GRANULOCYTES 0.2 % (0-5); LYMPHOCYTES 11.3 % (15-50); MCH 34.1 pg (26.0-34.0); MCHC 33.9 g/dL (31.0-37.0); MCV 100.6 fL (80.0-100.0); MEAN PLATELET VOLUME 10.1 fL (7.4-10.4); MONOCYTES 9.7 % (2-11); NEUTROPHILS 78.1 % (40-80); PLATELET COUNT 241 10x3/uL (130-400); RBC 3.43 10x6/uL (4.00-5.40); RDW 15.5 % (11.5-14.5); WBC 9.5 10x3/uL (4.8-10.8)
[2018-03-10 04:16] LABS: ANION GAP 14.6 mmol/L (8-16); CALCIUM 7.3 mg/dL (8.5-10.1); CARBON DIOXIDE 23.3 mmol/L (21.0-32.0); MAGNESIUM - SERUM 1.9 mg/dL (1.8-2.4); POTASSIUM - SERUM 3.9 mmol/L (3.5-5.1)
[2018-03-10 04:20] LABS: PHOSPHOROUS 2.1 mg/dL (2.5-4.9)
--- NOTE | 2018-03-10 07:15 | NUR ---
REPORT RECEIVED. ASSESSMENT COMPELTE PER FLOW SHEET. VSS. NO NEW CHANGES PT RESTING COMFORTABLY DENIES NEEDS WILL CONTNIUE TO MONITOR
--- NOTE | 2018-03-10 09:01 | NUR ---
PT PREOP'D SENT TO ACCESS SERVICES LIBRARIAN VSS UPDATED
--- NOTE | 2018-03-10 10:00 | NUR ---
PT BACK FROM MOISTURE METER READER GIVEN UPDATE. AT BEDSIDE.
--- NOTE | 2018-03-10 15:26 | NUR ---
RECEIVED PT FROM ICU VIA WHEELCHAIR. PT IS AAO AND UP AD RODGER. VSS AND WNL. RR EVEN AND UNLABORED ON RA. R.GROIN CATH SITE IS C/D/I. PERIPHERAL PULSES EVEN AND BILATERAL. KIM IN PLACE AND DARK HEMATURIA OBSERVED. AT BEDSIDE. PT CURRENTLY LYING SEMI FOWLERS. CALL LIGHT W/I REACH. NS INFUSING @100ML/HR VIA R.FOR PIV. WILL CTM.
--- NOTE | 2018-03-10 18:22 | NUR ---
PT CURRENTLY LYING SEMI FOWLERS. CALL LIGHT W/I REACH. KIM IN PLACE AND 700ML OF HEMATURIA OUTPUT RECORDED. PT DENIES ANY NEEDS AT THIS TIME. WILL PASS REPORT AND CONTINUE WITH POC.
--- NOTE | 2018-03-10 19:54 | NUR ---
RESUMED CARE OF PT, LYING IN BED RESPIRATIONS EVEN AND UNLABORED ON ROOM AIR. [address] ST ON TELEMETRY. RIGHT WRIST AND R GROIN C/D/I. KMI TO GRAVITY, DARK YELLOW URINE IN TUBE. NO NEEDS VOICED AT THIS TIME. PLAN OF CARE DISCUSSED. CALL LIGHT IN REACH. SEE NURSE ASSESSMENT.
[2018-03-11] VITALS: BP 113/61
[2018-03-11 04:00] VITALS: BP 122/73
--- NOTE | 2018-03-11 06:35 | NUR ---
NO CHANGES FROM PREVIOUS ASSESSMENT. URINE IS BACK TO RED TINGED. WILL CONTINUE TO MONITOR COLOR. AM MEDS GIVEN.
[2018-03-11 07:04] LABS: CALCIUM 7.8 mg/dL (8.5-10.1); CARBON DIOXIDE 22.1 mmol/L (21.0-32.0); CREATININE - SERUM 0.9 mg/dL (0.6-1.3); POTASSIUM - SERUM 4.1 mmol/L (3.5-5.1)
[2018-03-11 07:12] LABS: BASOPHILS 0.1 % (0-2); EOSINOPHILS 0.5 % (0-7); HEMOGLOBIN 11.4 g/dL (12-16); IMMATURE GRANULOCYTES 0.3 % (0-5); LYMPHOCYTES 14.5 % (15-50); MCH 33.6 pg (26.0-34.0); MCHC 33.5 g/dL (31.0-37.0); MCV 100.3 fL (80.0-100.0); MEAN PLATELET VOLUME 10.9 fL (7.4-10.4); MONOCYTES 11.7 % (2-11); NEUTROPHILS 72.9 % (40-80); PLATELET COUNT 255 10x3/uL (130-400); RBC 3.39 10x6/uL (4.00-5.40); RDW 15.7 % (11.5-14.5); WBC 10.2 10x3/uL (4.8-10.8)
--- NOTE | 2018-03-11 07:30 | NUR ---
RESTING QUIETLY EYES CLOSED RESP UNLABORED
[2018-03-11] MEDS ORDERED: OMNICEF300 MG PO (08:12)
[2018-03-11] MEDS ORDERED: PROTONIX40 MG PO (08:13)
[2018-03-11] MEDS ORDERED: PLAVIX75 MG PO (08:13)
[2018-03-11] MEDS ORDERED: ALBUTEROL SULF8.5 GM INH (08:13)
[2018-03-11] MEDS ORDERED: PREDNISONE20 MG PO (08:14)
[2018-03-11] MEDS ORDERED: ASPIRIN81 MG PO (08:15)
[2018-03-11 08:22] VITALS: BP 139/95
--- NOTE | 2018-03-11 11:20 | NUR ---
REVIEWED DISCHARGE INSTRUCTIONS WITH PT STATES UNDERSTANDING COPY GIVEN DCD SALINE LOCK TO RFA WITH IV CATHETER INTACT SITE FREE OF REDNESS OR EDEMA PT DISCHARGED HOME LEFT UNIT VIA W/C IN STABLE CONDITION WITH ALL PERSONAL BELONGINGS
[2018-03-11 11:26] VITALS: BP 145/93
--- NOTE | 2018-03-11 12:27 | MORECARE ---
CASE MANAGEMENT DISCHARGE SUMMARY PATIENT: RAMON PIERCE UNIT: [id number] ADM DATE: 03/08/18 AGE: 72 : [birth year] SEX: F ROOM/BED: D.8085 AUTHOR: JAVAN,DOC PHYSICIAN: REFERRING PHYSICIAN: TAMI RUIZ MD DATE OF SERVICE: 03/11/18 Discharge Plan Patient Name: RAMON PIERCE Facility: [facility]:[place] : 1945 Planned Disposition: Home Anticipated Discharge Date: Discharge Date: 03/11/2018 Expected LOS: Initial Reviewer: [email or web address] Initial Review Date: 03/09/2018 Generated: 03/11/18 1:27 pm Comments DCP- Discharge Planning Updated by [email or web address]: Eve Hernandez on 03/11/18 11:[address] NOTIFIED MIROSLAVA AT [place] ([phone]) THAT PATIENT HAS DISCHARGED. DISCHARGE INFORMATION SENT TO AMANDA POLLACK. DCP- Discharge Planning Updated by [email or web address]: Alanis Cavazos on 03/09/18 5:[address] Patient Name: RAMON PIERCE Admission Status: ER Accout number: [id number] Admission Date: 03-08-2018 : 1945 Admission Diagnosis: Attending: TAMI RUIZ Current LOS: 1 Anticipated DC Date: Planned Disposition: Home Primary Insurance: [facility] [employer] Discharge Planning Comments: CM met with patient at bedside. Patient states she plans on returning to her home with her after discharge. Patient denies any medical equipment in the home or home health services prior to admission. Patient denies any discharge needs. CM will continue to follow and assist as needed with discharge planning / needs. Lead Sustainability Specialist: Alanis Cavazos DCPIA - Discharge Planning Initial Assessment Updated by [email or web address]: Alanis Cavazos on 03/09/18 6:41 pm * Is the patient Alert and Oriented? Yes * How many steps to enter\exit or inside your home? * PCP [facility] [place] * [place] * Preadmission Environment Home with Family * ADLs Independent * Equipment None * List name and contact numbers for known caregivers / representatives who currently or will assist patient after discharge: OMA PIERCE - - [phone] * Verbal permission to speak to the caregivers and representatives has been obtained from the patient. N/A * Community resources currently utilized None * Additional services required to return to the preadmission environment? No * Can the patient safely return to the preadmission environment? Yes * Has this patient been hospitalized within the prior 30 days at any hospital? No Last DP export: 03/09/18 5:48 p Patient Name: RAMON PIERCE Page [id number] at 1227 All edits/amendments must be made on the electronic document DICTATION DATE: 03/11/18 1226 SHACTOR HELPER: EMILY 03/11/18 1226 RPT#: [id number] DC DATE:03/11/18 STATUS: DIS IN [facility] [address] [place] [address] END OF REPORT
--- NOTE | 2018-03-12 07:57 | MORECARE ---
CASE MANAGEMENT DISCHARGE SUMMARY PATIENT: RAMON PIERCE UNIT: [id number] ADM DATE: 03/08/18 AGE: 72 : [birth year] SEX: F ROOM/BED: D.4645 AUTHOR: JAVAN,DOC PHYSICIAN: REFERRING PHYSICIAN: TAMI RUZI MD DATE OF SERVICE: 03/12/18 Discharge Plan Patient Name: RAMON PIERCE Facility: [facility]:[place] : 1945 Planned Disposition: Home Anticipated Discharge Date: 03/11/18 Discharge Date: 03/11/2018 Expected LOS: 3 Initial Reviewer: [email or web address] Initial Review Date: 03/09/2018 Generated: 03/12/18 8:57 am Comments DCP- Discharge Planning Updated by [email or web address]: Eve Hernandez on 03/11/18 11:[address] NOTIFIED MIROSLAVA AT [place] ([phone]) THAT PATIENT HAS DISCHARGED. DISCHARGE INFORMATION SENT TO AMANDA POLLACK. DCP- Discharge Planning Updated by [email or web address]: Alanis Cavazos on 03/09/18 5:[address] Patient Name: RAMON PIERCE Admission Status: ER Accout number: [id number] Admission Date: 03-08-2018 : 1945 Admission Diagnosis: Attending: TAMI RUIZ Current LOS: 1 Anticipated DC Date: Planned Disposition: Home Primary Insurance: [facility] [employer] Discharge Planning Comments: CM met with patient at bedside. Patient states she plans on returning to her home with her after discharge. Patient denies any medical equipment in the home or home health services prior to admission. Patient denies any discharge needs. CM will continue to follow and assist as needed with discharge planning / needs. Clinical Admissions Manager: Alanis Cavazos DCPIA - Discharge Planning Initial Assessment Updated by [email or web address]: Alanis Cavazos on 03/09/18 6:41 pm * Is the patient Alert and Oriented? Yes * How many steps to enter\exit or inside your home? * PCP [facility] [place] * [place] * Preadmission Environment Home with Family * ADLs Independent * Equipment None * List name and contact numbers for known caregivers / representatives who currently or will assist patient after discharge: OMA PIERCE - - [phone] * Verbal permission to speak to the caregivers and representatives has been obtained from the patient. N/A * Community resources currently utilized None * Additional services required to return to the preadmission environment? No * Can the patient safely return to the preadmission environment? Yes * Has this patient been hospitalized within the prior 30 days at any hospital? No Last DP export: 03/11/18 11:27 a Patient Name: RAMON PIERCE Page [id number] at 0757 All edits/amendments must be made on the electronic document DICTATION DATE: 03/12/18756 BILLET CUTTER: EMILY 03/12/18756 RPT#: [id number] DC DATE:03/11/18 STATUS: DIS IN [facility] [address] [place] [address] END OF REPORT
--- NOTE | 2018-03-12 12:11 | EC ---
PATIENT:RAMON PIERCE DATE OF SERVICE: 03/08/18 SEX: F MEDICAL RECORD: [id number] DATE OF : [birth year] LOCATION:D.M2 D.211 AGE OF PATIENT: 72 ADMISSION DATE: 03/08/18 REFERRING PHYSICIAN: INTERPRETING PHYSICIAN: LIDYA DOUGLASS MD ECHOCARDIOGRAM REPORT ECHO CHARGES 4 ECHO COMPLETE Date: 03/08/18 CLINICAL DIAGNOSIS: LV FUNCTION ECHOCARDIOGRAPHIC MEASUREMENTS (adult normal given) AC root (d.<3.7cm) 2.7 cm LV Septum d (<1.2 cm> 0.9 cm Valve Excursion 1.7 cm LV Septum (systole) 1.3 cm Left Atria (s.<4.0cm> 3.3 cm LVPW d(<1.2cm) 1.3 cm RV (d.<2.3cm) 2.5 cm LVPW (sytole) 1.5 cm LV diastole(<5.6CM) 6.1 cm MV E-F(>70mm/sec) cm LV systole 5.2 cm LVOT Diameter 1.7 cm MV exc.(>10mm) cm Est.ejection fraction (50-75%) % DOPPLER: LVIT cm/sec A 41.0 cm/sec E 160 cm/sec LA cm/sec RVSP 34.0 mmHg LVOT 102 cm/sec AOP1/2T m/s Asc. Ao 161 cm/sec RVOT 65.0 cm/sec RA cm/sec PA 100 cm/sec AV Gradient Peak 10.4 mmHg AV Mean 5.8 mmHg AV Area 1.1 cm MV Gradient Peak 15.0 mmHg MV Mean 3.8 mmHg MV Area cm COMMENTS: Tugboat Operator: Darrin SOLOMONOE Building Guard Deputy Sheriff: 1 Dr. Douglass TAPE# PACS Pericardial Effusion N DATE OF SERVICE: 03/08/2018 FINDINGS: 1. Left ventricular chamber size is dilated. Left ventricular systolic function is markedly reduced. Overall ejection fraction is 15% to 20%. There is severe global hypokinesis throughout all segments with no discrete wall motion abnormalities present. 2. Left atrium, right atrium, and right ventricle chamber sizes are within normal limit. 3. Valvular structures have normal structure and motion. ECHOCARDIOGRAM REPORT [id number] RAMON PIERCE 4. Doppler interrogation reveals moderate mitral regurgitation and mild tricuspid regurgitation. No other valvular insufficiency or stenosis. 5. No evidence of pericardial effusion or left ventricular thrombus. TRANSINT:[id number] Voice Confirmation ID: [id number] DOCUMENT ID: [id number] LIDYA DOUGLASS MD at 1211 CC: [id number] DICTATION DATE: 03/09/18 1031 BUYER RENTER: 03/09/18 1107 DIS IN 03/11/18 [place] [id number] [place] [id number]
--- NOTE | 2018-03-12 12:11 | CN ---
PATIENT NAME:RAMON PIERCE MEDICAL RECORD: [id number] : [birth year] LOCATION:D. D.2115 ADMIT DATE: 03/08/18 ACCOUNT: [id number] CONSULTING PHYSICIAN: LIDYA CASH MD REFERRING PHYSICIAN: TAMI RUIZ MD DATE OF CONSULTATION: 03/08/2018 CARDIOLOGY CONSULTATION DIAGNOSES: 1. Respiratory failure. 2. Cardiomyopathy. 3. Congestive heart failure, chronic systolic dysfunction. 4. Chronic obstructive pulmonary disease. 5. Smoking history. HISTORY OF PRESENT ILLNESS: Mrs. Pierce presents with respiratory failure, found to have chest x-ray compatible with pulmonary edema. She underwent echocardiogram revealing ejection fraction in the 15% range with severe global hypokinesis. Her troponin is mildly elevated as well. She has no history of ischemic heart disease. She has been having some episodes of chest pain prior to this as well as shortness of breath. She is about to be extubated today. PHYSICAL EXAMINATION: GENERAL APPEARANCE: Well-nourished, well-developed, appears stated age. Level of distress, comfortable. PSYCHIATRIC: Mental status, alert, normal affect. Orientation, oriented to time, place and person. EYES: Lids and conjunctiva, noninjected. No discharge, no pallor. ENT: Lips, teeth, gums, normal dentition. Oropharynx, no cyanosis, no pallor. NECK: Carotid arteries, bilateral normal upstroke, no bruits, no thrills. JUGULAR VEINS: No jugular venous pressure or distention. CERVICAL LYMPH NODES: Nontender, nonenlarged. THYROID: Not enlarged. Nontender. No nodules. LUNGS: Respiratory effort, unlabored. CHEST: Normal curvature. No thoracic deformity. No chest wall tenderness. Percussion, resonant. Auscultation, clear. No wheezes, no rales, no rhonchi. CARDIOVASCULAR: Precordial exam, nondisplaced. No heaves or pericardial thrills. Rate and rhythm, regular. Heart sounds, normal S1, normal S2. No S3, no gallop, no rub. Systolic murmur, not heard. Diastolic murmur, not heard. EXTREMITIES: No cyanosis, no edema. Peripheral pulses, full and equal in all extremities, except as noted. No bruits appreciated. ABDOMEN: Soft, nondistended. Normal aorta. No bruit. Nontender. No masses. Liver, nontender, no hepatomegaly. Spleen, nontender, no splenomegaly. MUSCULOSKELETAL: No joint tenderness. No joint swelling. No erythema. NEUROLOGICAL: Normal gait, normal strength, normal tone. SKIN: Warm and dry. OVERALL IMPRESSION: Respiratory failure with severe cardiomyopathy. We will proceed with coronary angiography. Further care depends upon findings of the angiography. TRANSINT:[id number] Voice Confirmation ID: [id number] DOCUMENT ID: [id number] CONSULT REPORT [id number] OSK,LIDYA TERRY MD at 1211 CC: [id number] DICTATION DATE: 03/08/18 1118 DOPE HOUSE OPERATOR HELPER: 03/08/18 1536 DIS IN 03/11/18 [place] [id number] [place] [address]
--- NOTE | 2018-03-12 12:11 | OP ---
PATIENT NAME: RAMON PIERCE MEDICAL RECORD: [id number] :[birth year] LOCATION:D.M2 D.2115 ADMISSION DATE:03/08/18 SURGEON: LIDYA CASH MD DATE OF OPERATION: 03/10/2018 PROCEDURES: 1. PTCA stent RCA. 2. Selective coronary angiography. INDICATION: Angina and coronary artery disease. PROCEDURE IN DETAIL: After informed consent was obtained and after detailed description of risks, benefits as well as alternative therapies, the patient elected to proceed with angiogram and angioplasty. The right femoral area was prepped and draped in normal sterile fashion. Right femoral artery was cannulated via modified Seldinger technique with placement of 6-Niuean sheath. All catheters exchanged through this sheath. FINDINGS: The right coronary artery has a long area of 90% to 95% stenosis. This was addressed with a 2.5 x 26 mm Integrity stent times 2. The result was 0% residual stenosis. OVERALL IMPRESSION: Successful percutaneous transluminal coronary angioplasty stent of the right coronary artery going from 95% initial stenosis to 0% residual. TRANSINT:[id number] Voice Confirmation ID: [id number] DOCUMENT ID: [id number] LIDYA CASH MD at 1211 CC: [id number] DICTATION DATE: 03/10/18927 MARKER MAKER: 03/10/18 1003 DIS IN 03/11/[address] [address]
--- NOTE | 2018-03-12 12:11 | OP ---
PATIENT NAME: RAMON PIERCE MEDICAL RECORD: [id number] :[birth year] LOCATION:D.M2 D.2115 ADMISSION DATE:03/08/18 SURGEON: LIDYA CASH MD DATE OF OPERATION: 03/09/2018 PROCEDURES: 1. PTCA and stent, LAD. 2. PTCA and stent, left circumflex and ramus intermedius. 3. Intravascular ultrasound, left main. 4. Intravascular ultrasound, left anterior descending. 5. Left heart catheterization. 6. Selective coronary angiography. 7. Left ventriculogram. INDICATION: Angina and coronary artery disease. PROCEDURE IN DETAIL: After informed consent was obtained with detailed description of risks and benefits as well as alternative therapies, the patient elected to proceed with angiogram and angioplasty. The right femoral area was prepped and draped in normal sterile fashion. The right femoral artery was cannulated via modified Seldinger technique with placement of 6-Kiswahili sheath. All catheters were exchanged through this sheath. FINDINGS: Left ventriculogram performed in standard 30-degree SPRING view reveals global hypokinesis throughout all segments. Overall ejection fraction is estimated at 20%. SELECTIVE CORONARY ANGIOGRAPHY: 1. The left main has hazy area in the proximal vessel; however, intravascular ultrasound reveals that this is no greater than 30%. 2. The left anterior descending has hazy areas proximally. The intravascular ultrasound reveals that these are greater than 75%. 3. The left circumflex has a large ramus intermedius with 90% stenosis proximally. 4. The right coronary has a long area of 80% to 90% stenosis throughout the entire mid vessel. PTCA AND STENT OF LAD AND RAMUS INTERMEDIUS: The LAD was addressed with a 3.5 x 26-mm Integrity, the ramus with a 2.5 x 18 and 2.5 x 14 both Integrity stents. Result was 0% residual stenosis. OVERALL IMPRESSION: Successful PTCA and stent of the left circumflex, ramus intermedius, and LAD, going from 80% to 90% initial stenosis to 0% residual. PLAN: PTCA and stent of the RCA in the near future. TRANSINT:[id number] Voice Confirmation ID: [id number] DOCUMENT ID: [id number] OPERATIVE REPORT [id number] KATIESMILEY BahenaRAMONLIDYA CHEN MD at 1211 CC: [id number] DICTATION DATE: 03/09/18 1102 PIPE BENDING MACHINE OPERATOR: 03/09/18 1203 DIS IN 03/11/18 [place] [id number] [place] [id number]
== END 2018-03-11 11:20 | disposition home or self-care (01) | DRG 981 ==
LOC: EDBD 22:17 → D.ER 22:17 → D.ICU 03-08 00:08 → D.M2 03-10 14:51
PROVIDERS: Emergency Medicine; Internal Medicine Interventional Cardiology; ADMIT Internal Medicine Nephrology
PROC: 5A1935Z Respiratory Ventilation, Less than 24 Consecutive Hours (ICD-10-PCS; 2018-03-08)
PROC: 0BH17EZ Insertion of Endotracheal Airway into Trachea, Via Natural or Artificial Opening (ICD-10-PCS; 2018-03-08)
PROC: B241ZZ3 Ultrasonography of Multiple Coronary Arteries, Intravascular (ICD-10-PCS; 2018-03-09)
PROC: B2111ZZ Fluoroscopy of Multiple Coronary Arteries using Low Osmolar Contrast (ICD-10-PCS; 2018-03-09)
PROC: B2151ZZ Fluoroscopy of Left Heart using Low Osmolar Contrast (ICD-10-PCS; 2018-03-09)
PROC: 4A023N7 Measurement of Cardiac Sampling and Pressure, Left Heart, Percutaneous Approach (ICD-10-PCS; 2018-03-09)
PROC: 02713EZ Dilation of Coronary Artery, Two Arteries with Two Intraluminal Devices, Percutaneous Approach (ICD-10-PCS; 2018-03-09 10:00)
PROC: 02703EZ Dilation of Coronary Artery, One Artery with Two Intraluminal Devices, Percutaneous Approach (ICD-10-PCS; principal; 2018-03-10 08:30)
DX: J96.01 Acute respiratory failure with hypoxia (principal); I50.21 Acute systolic (congestive) heart failure; J18.1 Lobar pneumonia, unspecified organism; N17.9 Acute kidney failure, unspecified; E87.2 Acidosis; J44.1 Chronic obstructive pulmonary disease with (acute) exacerbation; J96.02 Acute respiratory failure with hypercapnia; I11.0 Hypertensive heart disease with heart failure; E11.9 Type 2 diabetes mellitus without complications; D64.9 Anemia, unspecified; I25.10 Atherosclerotic heart disease of native coronary artery without angina pectoris; Z95.5 Presence of coronary angioplasty implant and graft; I95.9 Hypotension, unspecified

== ENCOUNTER 2018-04-03 04:04 | Inpatient (IN) | payer OTHER ==
[~2018-04-03] VITALS: Ht 157.5 cm; Wt 59.1 kg
--- NOTE | ~2018-04-03 | HEMODYNAMI ---
PATIENT:RAMON PIERCE MEDICAL RECORD: [id number] : 49 LOCATION[id number] ADMISSION DATE: 04/03/18 Generatedon:04/04/201817:42 Patient name: RAMON PIERCE Patient #: [id number] SSN: : 1945 Date of study: 04/04/2018 Page: Of Hemodynamic Procedure Report Patient Data Patient Demographics Procedure consent was obtained First Name: RAMON Gender: Female Last Name: STAN : 1945 Patient #: [id number] Age: 72 year(s) Race: Unknown Additional ID: [id number] Contact details [address]: [address] [place] [address] State: [place] City: [place] Zip code: [address] Past Medical History Allergies: No known allergies Admission Admission Data Admission Date: 04/03/2018 Admission Time: 5:45 Room #: [facility] Procedure Procedure Types Cath Procedure Diagnostic Procedure LHC LHC w/Coronaries Procedure Description Procedure Date Procedure Date: 04/04/2018 Procedure Start Time: 17:21 Procedure End Time: 17:42 Procedure Staff Name Function Dagoberto Douglass MD Performing Physician Avelino Canela RT Monitor Gumaro Ruiz RN Nurse Ava Munoz RT Scrub Procedure Data Cath Procedure Fluoroscopy Diagnostic fluoroscopy Total fluoroscopy Time: 1.5 time: 1.5 min min Diagnostic fluoroscopy Total fluoroscopy dose: 266 dose: 266 mGy mGy Contrast Material Contrast Material Type Amount (ml) Isovue 300 56 Entry Location Entry Primary Successful Side Size Upsize Upsize Entry Closure Succes sful Closure Location (Fr) 1 (Fr) 2 (Fr) Remarks Device Remarks Femoral Right 6 Fr Exoseal artery Short Estimated blood loss: 5 ml Diagnostic catheters Device Type Used For End Catheter Placement MULTIPACK Pigtail 5 Fr LV Angiography catheter MULTIPACK JL 4.0 5Fr Left Coronary catheter Angiography MULTIPACK 3DRC 5Fr Right Coronary catheter Angiography Procedure Complications No complications Procedure Medications Medication Administration Route Dosage 0.9% NaCl I.V. 100 ml/hr Oxygen 15 l/min Heparin Flush Bag added to field 2 bags (1000units/500ml NS) Lidocaine 2% added to field 20 Dopamine 7 mcg/kg/min (400mg/250ml D5W) Dobutamine I.V. drip 5 mcg/kg/min (500mg/250ml D5W) Hemodynamics Rest Heart Rate: 103 (bpm) Pressure Samples Time Site Value (mmHg) Purpose Heart Use Rate(bpm) 17:25 AO 89/42(52) Snapshot 99 17:25 AO 83/62(69) Snapshot 98 17:26 AO 81/58(68) Snapshot 98 Snapshots Pre Cath Intra NCS Post Cath Vital Signs Time Heart Resp SPO2 etCO2 NIBP Rhythm Pain Sedation Rate (ipm) (%) (mmHg) (mmHg) Status Level (bpm) 17:18:13 108 39 90 0 81/58(0) NSR 0 (11) 3(A) , No pain 17:22:04 103 37 90 0 83/62(0) NSR 0 (11) 3(A) , No pain 17:26:31 98 37 91 0 89/42(0) NSR 0 (11) 3(A) , No pain Medications Time Medication Route Dose Verified Delivered Reason Not es Effectiveness by by 17:15:50 0.9% NaCl I.V. 100 ml/hr Gumaro Gumaro Per Joseph Ruiz physician RN RN 17:16:27 Oxygen OETT 15 l/min Gumaro Gumaro for low 02 vent Lorigan Lorigan sats RN RN 17:16:39 Heparin Flush added to 2 bags Gumaro Gumaro used for Bag field Joseph Ruiz procedure (1000units/500ml RN RN NS) 17:16:51 Lidocaine 2% added to 20ml vial Gumaro Gumaro for local field Lorigan Lorigan anesthetic RN RN 17:17:39 Dopamine I.V. 7 Gumaro Gumaro For (400mg/250ml drip mcg/kg/min Lorigan Lorigan hypotension D5W) infusing RN RN upon arrival 17:34:39 Dobutamine I.V. 5 Gumaro Gumaro For (500mg/250ml drip mcg/kg/min Lorigan Lorigan hypotension D5W) RN office technology instructor Log Time Note 16:58:27 Time tracking: Call back (After hours or weekends) 16:58:33 Plan of Care:Hemodynamics will remain stable., Cardiac rhythm will remain stable., Comfort level will be maintained., Respiratory function will remain adequate., Patient/ family verbilizes understanding of procedure., Procedure tolerated without complication., Recovers from procedure without complications.. 17:02:11 Gumaro Ruiz RN sent for patient. Start room use. 17:07:44 Patient received from PCU to CCL 1 On ventilator. Tansferred to table in Supine position. 17:07:51 Warm blankets applied, and ethan hugger turned on for patient comfort. 17:07:51 Correct patient and procedure confirmed by team. 17:07:54 Signed procedure consent form obtained from not obtained; Physician declared emergency. 17:07:55 ECG and BP/O2 sat monitors applied to patient. 17:07:56 Full Disclosure recording started 17:15:02 Vital chart was started 17:15:06 Rhythm: sinus rhythm 17:15:14 H&P Date Dictated: 04/02/2018 Within 30 days and on chart., H&P Addendum completed by physician on day of procedure. (MUST COMPLETE FOR ALL OUTPATIENTS). 17:15:16 Pre-procedure instructions explained to patient. 17:15:16 Pre-op teaching completed and patient verbalized understanding. 17:15:18 Family in waiting room. 17:15:50 0.9% NaCl 100 ml/hr I.V. was administered by Gumaro Ruiz RN; Per physician; 17:16:27 Oxygen 15 l/min OETT vent was administered by Gumaro Ruiz RN; for low 02 sats; 17:16:39 Heparin Flush Bag (1000units/500ml NS) 2 bags added to field was administered by Gumaro Ruiz RN; used for procedure; 17:16:51 Lidocaine 2% 20ml vial added to field was administered by Gumaro Ruiz RN; for local anesthetic; 17:17:39 Dopamine (400mg/250ml D5W) 7 mcg/kg/min I.V. drip infusing upon arrival was administered by Gumaro Ruiz RN; For hypotension; 17:18:31 Patient NPO since Midnight. 17:18:36 Patient allergic to No known allergies 17:18:38 Is the patient allergic to Iodine/contrast media? No. 17:18:41 Is patient on blood thinner?Yes 17:19:23 ACC The patient was administered the following blood thiners within the last 24 hours: ACCPlavix 17:19:25 Patient diabetic? No. 17:19:33 Pre procedure: right dorsailis pedis pulse 1+ Palpable, but thready & weak; easily obliterated 17:19:40 Patient pain scale 0/10 ?. 17:19:45 IV patent on arrival in left forearm with 0.9% NaCl at [facility]. 17:19:47 Lab results completed and on chart. 17:19:50 Right groin area was prepped with chlora-prep and draped in sterile fashion 17:19:51 Alarms reviewed by R. N. 17:19:51 Sharps counted by scrub and verified by R.N. 17:19:52 Final Timeout: patient, procedure, and site verified with staff and physician. All members of the team are in agreement. 17:19:53 Right groin site verified by team. 17:19:56 Fire Safety Assessment: A--An alcohol-based skin anteseptic being used preoperatively., C--Open oxygen or nitrous oxide is being used., D--An ESU, laser, or fiber-optic light is being used. 17:20:02 Physical assessment completed. ASA score P 4 - A patient with severe systemic disease that is a constant threat to life as per Dagoberto Douglass MD. 17:20:05 Sedation plan: IV Moderate Sedation Medication:Versed, Fentanyl 17:20:10 Use device set Femoral Dx 17:20:11 ACIST Syringe (34604) opened to sterile field. 17:20:37 Bag Decanter (2002) opened to sterile field. 17:20:38 Medline Cath Pack ([id number]) opened to sterile field. 17:20:38 DIAGNOSTIC WIRE .035 260cm J wire (081151) opened to sterile field. 17:20:39 ACIST Hand Control (99923) opened to sterile field. 17:20:39 ACIST Manifold (89277) opened to sterile field. 17:20:40 DIAGNOSTIC Multipack 5Fr catheter set ([id number]) opened to sterile field. 17:20:41 Tegaderm 4 x 4 (1626W) opened to sterile field. 17:20:48 SHEATH 6FR Sabinal (BIX001) opened to sterile field. 17:21:34 Procedure started. 17:21:36 Local anesthetic to right femoral artery with Lidocaine 2% by Dagoberto Douglass MD.INITIAL ACCESS ONLY 17::32 Baseline sample Acquired. 17:22:42 Zero performed for pressure channel P1 17::45 Zero performed for pressure channel P1 17:23:24 A 6 Fr Short sheath was inserted into the Right Femoral artery 17:24:16 A MULTIPACK Pigtail 5 Fr catheter was advanced over the wire and used for LV Angiography. 17:25:27 LV gram done using SPRING 17::32 EF : 15 % 17::34 Injector settings: Ml/sec: 10, Volume: 20, 17:25:35 Catheter removed. 17::41 A MULTIPACK JL 4.0 5Fr catheter was advanced over the wire and used for Left Coronary Angiography. 17:27:10 Catheter removed. 17:27:19 A MULTIPACK 3DRC 5Fr catheter was advanced over the wire and used for Right Coronary Angiography. 17:28:02 Catheter removed. 17:28:14 Sheath removed intact; hemostasis achieved with Exoseal to the Right Femoral artery. 17:28:17 Procedure ended.(Physican Out) 17:28:26 EXOSEAL 6Fr (EX600) opened to sterile field. 17:28:43 Fluoroscopy time 01.50 minutes. 17:28:46 Flurop Dose total: 266 17:28:46 Fluoroscopy dose: 266 mGy 17:28:50 Contrast amount:Isovue 300 56ml. 17:28:51 Sharps counted by scrub and verified by R.N. 17:28:52 Insertion/operative site no bleeding no hematoma. 17:29:23 Post-op/insertion site Right Femoral artery dressed using a 4 x 4 and Tegaderm. 17:29:26 Post right femoral artery:stable, clean and dry 17:29:27 Post Procedure Pulses reassessed and unchanged 17:29:29 Post-procedure physical assessment completed. ASA score P 2 - A patient with mild systemic disease as per Dagoberto Douglass MD. 17:29:32 Post procedure rhythm: unchanged. 17:29:49 Estimated blood loss: 5 ml 17:29:50 Post procedure instruction explained to patient.Patient verbalizes understanding. 17:29:50 Patient needs reinforcement of post procedure teaching. 17:30:03 Procedure Complication : No complications 17:30:05 See physician's report for complete and final results. 17:30:52 Procedure and supply charges have been captured, reviewed, submitted and are correct. 17:34:39 Dobutamine (500mg/250ml D5W) 5 mcg/kg/min I.V. drip was administered by Gumaro Ruiz RN; For hypotension; 17:41:56 Vital chart was stopped 17:41:58 Report given to ICU. 17:42:01 Patient transfered to ICU with Bed. 17:42:03 Procedure ended. 17:42:03 Full Disclosure recording stopped 17:42:07 End room use (Document Last) Device Usage Item Name Manufacture Quantity Catalog Hospital Part Current Minimal L ot# / Number Charge Number Stock Stock Serial# Code ACIST Acist 1 18705 411961 849340 664113 20 Syringe Medical (36072) Systems Inc Bag Microtek 1 2001S 309805 45769 834044 5 Decanter Medical Inc. () Medline Medline 1 [id number] 775124 12188 217974 5 Cath Pack ([id number]) DIAGNOSTIC St Kishan 1 396640 742457 466433 340589 30 WIRE .035 260cm J wire (243604) ACIST Hand Acist 1 35440 891510 233324 205559 5 Control Medical (14656) Systems Inc ACIST Acist 1 98716 245626 396478 464432 5 Manifold Medical (63443) Systems Inc DIAGNOSTIC Cardinal 1 NX4165 435372 91844 432974 30 Multipack Health 5Fr catheter set (KP1445) Tegaderm 4 3M 1 1626W 232918 316881 674421 5 x 4 (1626W) SHEATH 6FR Terumo 1 LUG499 139228 294174 830450 40 Sabinal (QHV446) MULTIPACK Cardinal 1 192542 5 Pigtail 5 Health Fr catheter MULTIPACK Cardinal 1 918801 5 JL 4.0 5Fr Health catheter MULTIPACK Cardinal 1 234174 5 3DRC 5Fr Health catheter EXOSEAL 6Fr Cardinal 1 EX600 509058 911395 762121 10 (EX600) Health Signature Audit [place] Stage Time Signature Unsigned Intra-Procedure 04/04/2018 Ava 5:42:20 PM Counts RT(R) Signatures Monitor : Avelino Canela RT Signature : Date : Time : [place] [address] [place] [address]
[~2018-04-03 04:04] MED LIST: ALBUTEROL SULF8.5 GM INH; ASPIRIN81 MG PO; CALCIUM 500 +1 EAC3 PO; MERIBIN5 MG PO; MULTIVITAMIN; NIASPAN500 MG PO; OMNICEF300 MG PO; PLAVIX75 MG PO; PREDNISONE20 MG PO; PRINIVIL20 MG PO; PROTONIX40 MG PO; [UNRECOGNIZED DRUG - OTHER]
[2018-04-03 04:28] LABS: BASOPHILS 0.6 % (0-2); HEMATOCRIT 41.1 % (36.0-48.0); HEMOGLOBIN 13.4 g/dL (12-16); IMMATURE GRANULOCYTES 0.4 % (0-5); LYMPHOCYTES 23.9 % (15-50); MCH 32.8 pg (26.0-34.0); MCHC 32.6 g/dL (31.0-37.0); MCV 100.7 fL (80.0-100.0); MEAN PLATELET VOLUME 10.4 fL (7.4-10.4); MONOCYTES 6.2 % (2-11); NEUTROPHILS 66.9 % (40-80); RBC 4.08 10x6/uL (4.00-5.40); RDW 14.9 % (11.5-14.5); WBC 7.9 10x3/uL (4.8-10.8)
--- NOTE | 2018-04-03 04:31 | NUR ---
REPORT RECEIVED FROM NILE AHN USING SBAR COMMUNICATION
--- NOTE | 2018-04-03 04:31 | NUR ---
DOCUMENTATION ERROR. REPORT RECEIVED BY NILE DOVE FROM [facility]
[2018-04-03 04:35] LABS: PLATELET COUNT 359 10x3/uL (130-400)
--- NOTE | 2018-04-03 04:40 | NUR ---
NO MARKED IMPROVEMENT FROM NITRO MD NOTIFIED.
[2018-04-03 04:48] LABS: ALBUMIN 3.2 g/dL (3.4-5.0); ANION GAP 22.5 mmol/L (8-16); BILIRUBIN - TOTAL 0.51 mg/dL (0.2-1.3); CALCIUM 8.9 mg/dL (8.5-10.1); CARBON DIOXIDE 19.8 mmol/L (21.0-32.0); CREATININE - SERUM 1.5 mg/dL (0.6-1.3); POTASSIUM - SERUM 4.3 mmol/L (3.5-5.1); PROTEIN - SERUM 7.4 g/dL (6.4-8.2)
[2018-04-03 05:09] LABS: TROPONIN-I 0.061 ng/mL (0.000-0.060)
[2018-04-03 07:37] VITALS: BP 94/52; BMI 22.7
--- NOTE | 2018-04-03 07:44 | NUR ---
0645-TO ROOM VIA WHEELCHAIR ON PORTABLE OXYGEN. RIGHT FA PIV SEEN WITH SALINE LOCK. GLASSES ON. C/O SLIGHT NAUSEA. NON SKID SOCKS PLACED ON PATIENT.
[2018-04-03 09:57] VITALS: BP 130/79
[2018-04-03 12:46] VITALS: BP 139/78
--- NOTE | 2018-04-03 12:55 | NUR ---
LYING QUIETLY. NO NEEDS VOICED. FAMILY AT BEDSIDE. SR UP WITH CALL LIGHT IN REACH
[2018-04-03 17:45] VITALS: BP 110/77
--- NOTE | 2018-04-03 18:46 | NUR ---
LYING QUIETLY. DENIES ANY NEEDS. TELEMERTY SHOWS SR. WILL MONITOR
[2018-04-03 20:10] VITALS: BP 126/84
--- NOTE | 2018-04-03 22:31 | NUR ---
INITIAL ROUNDS COMPLETED AT 1915 HRS. PT DENIED ANY DISCOMFORT. ASESSMENT COMPLETED AT [address] PER CM HR 115. O2 4LNC. LUNGS DIMINISHED IN BASES BILAT. ALERT AND ORIENTED TO PERSON, PLACE AND TIME. IV TO R WRIST SL.PM MEDS GIVEN. PT CURRENTLY RESTING WITH EYES CLOSED. RESP EVEN AND REGULAR. SR UP X2, CALL LIGHT WITHIN REACH.
[2018-04-03 23:55] VITALS: BP 102/67
[2018-04-04] VITALS (26 sets, daily range): BP systolic 101–120; BP diastolic 60–76
--- NOTE | 2018-04-04 00:14 | NUR ---
PT RESTING WITH EYES CLOSED. RESP DEEP, EVEN AND REGULAR. SR UP X2, CALL LIGHT WITHIN REACH.
--- NOTE | 2018-04-04 02:32 | NUR ---
PT RESTING WITH EYES CLOSED. RESP EVEN AND REGULAR. SR UP X2, CALL LIGHT WITHIN REACH.
--- NOTE | 2018-04-04 05:01 | NUR ---
PT RESTING WITH EYES CLOSED. RESP EVEN AND REGULAR. SR UP XS2, CALL LIGHT WITHIN REACH.
--- NOTE | 2018-04-04 05:45 | NUR ---
VSS THROUGHOUT NIGHT. PT RESTED WELL AFTER RESTORIL ADMINISTRATION. NEEDS MET; WILL CONTINUE TO MONITOR.
[2018-04-04 06:05] LABS: BASOPHILS 0.2 % (0-2); EOSINOPHILS 0 % (0-7); HEMATOCRIT 33.8 % (36.0-48.0); IMMATURE GRANULOCYTES 0.3 % (0-5); LYMPHOCYTES 8.3 % (15-50); MCH 31.8 pg (26.0-34.0); MCHC 32.5 g/dL (31.0-37.0); MEAN PLATELET VOLUME 10.6 fL (7.4-10.4); MONOCYTES 9.3 % (2-11); NEUTROPHILS 81.9 % (40-80); PLATELET COUNT 354 10x3/uL (130-400); RBC 3.46 10x6/uL (4.00-5.40); RDW 14.9 % (11.5-14.5)
[2018-04-04 06:12] LABS: MCV 97.7 fL (80.0-100.0); WBC 10.8 10x3/uL (4.8-10.8)
[2018-04-04 06:38] LABS: ALBUMIN 2.7 g/dL (3.4-5.0); BILIRUBIN - TOTAL 0.34 mg/dL (0.2-1.3); CALCIUM 8.3 mg/dL (8.5-10.1); CREATININE - SERUM 1.7 mg/dL (0.6-1.3); PROTEIN - SERUM 6.3 g/dL (6.4-8.2)
[2018-04-04 06:49] LABS: ANION GAP 18.5 mmol/L (8-16); POTASSIUM - SERUM 5.5 mmol/L (3.5-5.1)
--- NOTE | 2018-04-04 07:27 | NUR ---
ROUNDING DONE WITH PATIENT HAVING NO NEEDS VOICED AT THIS TIME. ON HEART MONITOR SHOWING SR, HR 80. ON 4L PER NC. RIGHT FA PIV SEEN WITH SALINE LOCK. ON EP, K+ IS 5.5
--- NOTE | 2018-04-04 10:13 | NUR ---
PATIENT JUST BACK FROM USING RESTROOM, VERY SHORT OF BREATH. BSC FOUND AND PLACED AT BEDSIDE HOPING THAT THIS WILL HELP.
--- NOTE | 2018-04-04 13:07 | NUR ---
PATIENT USED THE BSC AND STATES THAT SHE GOT HER BREATH BACK "FASTER THIS TIME". STILL WITH SHORTNESS OF BREATH
--- NOTE | 2018-04-04 15:35 | NUR ---
CALLED TO ROOM WITH PATIENT "HAVING ATTACK". O2 SAT IS 98%. 1537-STATES TO HAVING ANOTHER ATTACK. O2 SAT DROPS TO 78 %. NASAL CANNULA INCREASED TO 6L PER NC. R.T CALLED FOR HIGH FLOW. MARTY SCHROEDER APN HERE ALSO SEEING PATIENT. 1536-PATIENT IS VERY CLAMMY. POC GLUCOSE CHECKED WITH RESULTS OF 193. PLACED ON HIGH FLOW AT 7 L. R.T DECREASES HIGH FLOW TO 5 L WITH O2 SAT AT 100 %. 1537-HIGH FLOW DECREASED TO 4L WITH SAT OF 98%. NEW ORDERS RECEIVED FROM MARTY.
--- NOTE | 2018-04-04 15:52 | NUR ---
R.T. HERE FOR UPDRAFT TREATMENT. I CALLED LAB FOR THE STAT BLOOD DRAWS. RADIOLOGY HERE FOR CXR.
[2018-04-04 16:16] LABS: BASOPHILS 0.2 % (0-2); EOSINOPHILS 0 % (0-7); IMMATURE GRANULOCYTES 0.5 % (0-5); LYMPHOCYTES 13.3 % (15-50); MCH 32.7 pg (26.0-34.0); MCHC 31.9 g/dL (31.0-37.0); MEAN PLATELET VOLUME 10.7 fL (7.4-10.4); MONOCYTES 6.4 % (2-11); NEUTROPHILS 79.6 % (40-80); PLATELET COUNT 310 10x3/uL (130-400); RBC 3.98 10x6/uL (4.00-5.40); RDW 15.2 % (11.5-14.5); WBC 12.7 10x3/uL (4.8-10.8)
[2018-04-04 16:17] LABS: HEMATOCRIT 40.7 % (36.0-48.0); MCV 102.3 fL (80.0-100.0)
[2018-04-04 17:07] LABS: CALCIUM 8.6 mg/dL (8.5-10.1); CARBON DIOXIDE 17.3 mmol/L (21.0-32.0); CHLORIDE - SERUM 98 mmol/L (98-107); CREATINE KINASE 652 UL (21-215); SODIUM 134 mmol/L (136-145)
[2018-04-04 17:09] LABS: CALC OSMOLALITY 286 mosm/kg (275-300); CREATININE - SERUM 2.2 mg/dL (0.6-1.3); GLUCOSE 217 mg/dL (74-106); UREA NITROGEN 46 mg/dL (7-18)
[2018-04-04 17:10] LABS: eGFR NON AFRICAN AMERICAN 23 mL/min (90-120)
[2018-04-04 17:11] LABS: TROPONIN-I 41.118 ng/mL (0.000-0.060)
--- NOTE | 2018-04-04 17:43 | NUR ---
RAPID RESPONSE CALLED PATIENT IS STRUGGLING TO BREATH. O2 SAT IS 78%. 1622-PATIENT BECOMES UNRESPONSIVE, CODE MICHAEL CALLED. TEAM HERE. SEE CODE BLUE SHEET. 1705-TO NOVELTY TWISTER TENDER VIA BED.
--- NOTE | 2018-04-04 17:53 | NUR ---
REC'D INTO ROOM [address] CUTTER ON VENT ON DOPAMINE AT 10 MCG AND DOBUTAMINE AT [address] INIGUEZ IN ICU. SAID TO REDUCE DOPAMINE TO 5 MCG. HR=NS RATE OF 92. BP 134/64.
--- NOTE | 2018-04-04 17:53 | NUR ---
NO BLEEDING OR HEMATOMA AT [facility] GROIN FLASK MAKER SITE.
--- NOTE | 2018-04-04 18:08 | NUR ---
BP 84/62. INCREASED DOPAMINE TO 7.[address] INIGUEZ[address]
--- NOTE | 2018-04-04 18:12 | NUR ---
ORDERS REC'D FOR MARIEL FROM DR. INIGUEZ.
--- NOTE | 2018-04-04 18:15 | NUR ---
ORDERS REC'D FOR LEVOPHED PER DR. INIGUEZ.
--- NOTE | 2018-04-04 18:23 | NUR ---
LEVOPHED INITIATED AT 10 MCG.
--- NOTE | 2018-04-04 18:28 | NUR ---
SET CVP LINE UP PER DR. INIGUEZ.
--- NOTE | 2018-04-04 18:36 | NUR ---
KIM CATH PLACED BY LEONARD WALTON RN.
--- NOTE | 2018-04-04 18:45 | NUR ---
TEMP 93.8. WARMING BALNKET APPLIED.
--- NOTE | 2018-04-04 18:49 | NUR ---
PRESSORS AND DIPRIVAN BEING TITRATED TO EFFECT.
--- NOTE | 2018-04-04 19:20 | NUR ---
PT RECEIVED SEDATED ON VENT. EYES OPEN SPONTANIOUSLY AND PULLING AGAINST RESTRAINTS AT TIMES, BUT WOULD QUICKLY RETURN TO RESTING. RIGHT SUBCLAVIAN PATENT SEE IV FLOW SHEET FOR FLUIDS. IKM PATENT WITH KIAN URINE. SBP >100 AND MAP >60. CVP 24. WILL CONTINUE TO OBSERVE.
--- NOTE | 2018-04-04 21:35 | NUR ---
DR INIGUEZ CALLED TO CHECK ON PT REPORTED B/P, CVP, VENT SETTINGS, ABG RESULTS. PER REQUEST. ORDERED NS TO RUN AT 50ML/HR, AND HAVE ABG RECHECKED WITH LACTIC ACID, AND HE WOULD CALL BACK FOR RESULTS. CALL BACK AND REPORTS RESULTS WITH NO CHANGES.
--- NOTE | 2018-04-04 21:50 | NUR ---
DR INIGUEZ CALLED WITH ORDERS FOR PROTONIX 40MG IV AND 5000UNITS HEPRINE SUB Q. PT WITH ORDER FOR LOVENOX ALREADY. DR INIGUEZ PAGED AND HE RETURNED CALL QUICKLY AND INFORMED HIM OF EXISTING ORDER AND TO KEEP EXISTING ORDER. LASIX 40MG IV NOW AND DAILY ENTERED INTO [facility].
--- NOTE | 2018-04-04 21:55 | NUR ---
DR INIGUEZ MADE AWARE OF ABG RESULTS AND CVL READINGS. ORDERS RECEIVED TO REDUCE NS FROM 200ML/H TO 50 AND GIVE ONE TIME DOSE LASIX 40MG IV. WILL CONTINUE TO OBSERVE.
[2018-04-04 22:34] LABS: CKMB 103.9 U/L (0.0-3.6); CREATINE KINASE 740 UL (21-215)
[2018-04-04 22:36] LABS: TROPONIN-I 50.716 ng/mL (0.000-0.060)
--- NOTE | 2018-04-04 23:25 | NUR ---
REASSESSMENT COMPLETED, SEE FLOW SHEET. DOPAMINE TITRATION CONTINUES SEE IV FLOW SHEET
[2018-04-05] VITALS (64 sets, daily range): BP systolic 86–126; BP diastolic 55–75; BMI 22.7
--- NOTE | 2018-04-05 01:40 | NUR ---
TITRATION OF DRIPS CONTINUES, SEE IV FLOW SHEET. VSS.
--- NOTE | 2018-04-05 03:20 | NUR ---
REASSESSMENT COMPLETE, SEE FLOW SHEET. TITRATION CONTINUES SEE IV FLOW SHEET.
[2018-04-05 03:28] LABS: BASOPHILS 0.1 % (0-2); EOSINOPHILS 0 % (0-7); HEMATOCRIT 31.4 % (36.0-48.0); HEMOGLOBIN 10.5 g/dL (12-16); IMMATURE GRANULOCYTES 0.5 % (0-5); LYMPHOCYTES 5.1 % (15-50); MCH 32.4 pg (26.0-34.0); MCHC 33.4 g/dL (31.0-37.0); MCV 96.9 fL (80.0-100.0); MEAN PLATELET VOLUME 10.3 fL (7.4-10.4); MONOCYTES 6.9 % (2-11); NEUTROPHILS 87.4 % (40-80); PLATELET COUNT 328 10x3/uL (130-400); RBC 3.24 10x6/uL (4.00-5.40); WBC 13.8 10x3/uL (4.8-10.8)
[2018-04-05 03:51] LABS: ALBUMIN 2.5 g/dL (3.4-5.0); ALKALINE PHOSPHATASE 71 U/L (46-116); BILIRUBIN - TOTAL 0.29 mg/dL (0.2-1.3); CALC OSMOLALITY 295 mosm/kg (275-300); CALCIUM 7.3 mg/dL (8.5-10.1); CHLORIDE - SERUM 102 mmol/L (98-107); CKMB 101.4 U/L (0.0-3.6); CREATINE KINASE 695 UL (21-215); CREATININE - SERUM 2.4 mg/dL (0.6-1.3); GLUCOSE 171 mg/dL (74-106); MAGNESIUM - SERUM 1.8 mg/dL (1.8-2.4); PROTEIN - SERUM 5.7 g/dL (6.4-8.2); SODIUM 139 mmol/L (136-145); UREA NITROGEN 53 mg/dL (7-18); eGFR NON AFRICAN AMERICAN 21 mL/min (90-120)
[2018-04-05 03:54] LABS: ALT (SGPT) 1630 U/L (10-68); CARBON DIOXIDE 25.5 mmol/L (21.0-32.0); POTASSIUM - SERUM 4.8 mmol/L (3.5-5.1); TROPONIN-I 63.575 ng/mL (0.000-0.060)
--- NOTE | 2018-04-05 06:01 | NUR ---
REASSESSMENT COMPLETED. CONTINUE TITRATING DOPAMINE SEE FLOW SHEETS.
--- NOTE | 2018-04-05 06:21 | NUR ---
RINGS REMOVED FROM PT FINGERS AND TO WITH HIM.
--- NOTE | 2018-04-05 06:39 | NUR ---
DR CASH NOTIFIED OF TROPONIN LEVELS WITH NO ORDERS RECEIVED.
--- NOTE | 2018-04-05 07:30 | NUR ---
REPORT RECIEVED, SHIFT ASSESSMENT COMPLETE, PT IS SEDATED ON VENT, FOLLOWS COMMANDS, ALL PPP, VSS, WILL CON'T TO MONITOR
--- NOTE | 2018-04-05 09:00 | NUR ---
FAMILY AT BEDSIDE, UPDATE GIVEN
--- NOTE | 2018-04-05 11:00 | NUR ---
REASSESSMENT COMPLETE, NO CHANGES NOTED, WILL CON'T TO MONITOR
--- NOTE | 2018-04-05 11:45 | NUR ---
DR. TAN AT BEDSIDE, VENT CHANGES MADE,
--- NOTE | 2018-04-05 13:14 | NUR ---
REPOSITIONED FOR COMFORT, ORAL CARE PROVIDED
--- NOTE | 2018-04-05 15:15 | NUR ---
COMPLETE LINEN CHANGE, PT TOLERATED WELL
--- NOTE | 2018-04-05 17:31 | NUR ---
FAMILY AT BEDSIDE, UPDATE GIVEN
--- NOTE | 2018-04-05 19:01 | NUR ---
REPORT RECEIVED, CARE ASSUMED. INITIAL ASSESSMENT COMPLETED, SEE FLOWSHEET FOR DETAILS. PT IS LAYING IN BED WITH EYES OPEN AT THIS TIME. NO SIGNS OF ACUTE DISTRESS. WILL CONTINUE TO MONITOR.
--- NOTE | 2018-04-05 21:11 | NUR ---
REPOSITIONED PT FOR COMFORT. ORAL CARE PERFORMED. PT IS INTUBATED AND SEDATED ON THE VENT AT THIS TIME. NO SIGNS OF ACUTE DISTRESS. WILL CONTINUE TO MONITOR.
--- NOTE | 2018-04-05 23:02 | NUR ---
REASSESSMENT COMPLETED, SEE FLOWSHEET. NO ACUTE CHANGES NOTED. REPOSITIONED PT FOR COMFORT. NO SIGNS OF ACUTE DISTRESS. WILL CONTINUE TO MONITOR.
[2018-04-06] VITALS (24 sets, daily range): BP systolic 18–120; BP diastolic 63–79
--- NOTE | 2018-04-06 01:02 | NUR ---
PT REPOSITIONED FOR COMFORT. ORAL CARE PERFORMED. NO FURTHER NEEDS NOTED AT THIS TIME. NO SIGNS OF ACUTE DISTRESS. WILL CONTINUE TO MONITOR.
--- NOTE | 2018-04-06 03:03 | NUR ---
REASSESSMENT COMPLETED, SEE FLOWSHEET. NO ACUTE CHANGES NOTED. NO SIGNS OF ACUTE DISTRESS. WILL CONTINUE TO MONITOR.
[2018-04-06 04:08] LABS: BASOPHILS 0 % (0-2); EOSINOPHILS 0 % (0-7); HEMATOCRIT 29.4 % (36.0-48.0); HEMOGLOBIN 9.7 g/dL (12-16); IMMATURE GRANULOCYTES 0.2 % (0-5); LYMPHOCYTES 5.4 % (15-50); MCH 32.1 pg (26.0-34.0); MCV 97.4 fL (80.0-100.0); MEAN PLATELET VOLUME 10.6 fL (7.4-10.4); MONOCYTES 6.8 % (2-11); NEUTROPHILS 87.6 % (40-80); PLATELET COUNT 300 10x3/uL (130-400); RBC 3.02 10x6/uL (4.00-5.40); RDW 14.9 % (11.5-14.5); WBC 10.4 10x3/uL (4.8-10.8)
[2018-04-06 04:21] LABS: INR 1.21 (0.85-1.17); PROTIME 14.8 SECONDS (11.6-15.0)
[2018-04-06 04:44] LABS: ALBUMIN 2.2 g/dL (3.4-5.0); BILIRUBIN - TOTAL 0.24 mg/dL (0.2-1.3); CARBON DIOXIDE 25.3 mmol/L (21.0-32.0); PHOSPHOROUS 4.4 mg/dL (2.5-4.9); PROTEIN - SERUM 4.9 g/dL (6.4-8.2)
[2018-04-06 04:49] LABS: ANION GAP 15.6 mmol/L (8-16); CALCIUM 6.9 mg/dL (8.5-10.1); CREATININE - SERUM 1.6 mg/dL (0.6-1.3); POTASSIUM - SERUM 3.9 mmol/L (3.5-5.1); TROPONIN-I 20.861 ng/mL (0.000-0.060)
--- NOTE | 2018-04-06 05:03 | NUR ---
PT IS RESTING IN BED INTUBATED AND SEDATED. NO ACUTE CHANGES NOTED TO PT. PT REPOSITIONED FOR COMFORT. NO SIGNS OF ACUTE DISTRESS. WILL CONTINUE TO MONITOR.
--- NOTE | 2018-04-06 07:00 | NUR ---
REPORT RECIEVED, SHIFT ASSESSMENT COMPLETE, PT IS SEDATED ON VENT, FOLLOWS COMMANDS, ALL PPP, VSS, WILL CON'T TO MONITOR
--- NOTE | 2018-04-06 09:10 | NUR ---
FAMILY AT BEDSIDE, UPDATE GIVEN
--- NOTE | 2018-04-06 09:35 | NUR ---
NUTRITION F/U PT WITH FAMILY AT BEDSIDE. PT REMAINS ON VENT, PROCALAMINE AT 50 CC/HR. WILL CONTINUE TO MONITOR PT PROGRESS. RD FOLLOWING
--- NOTE | 2018-04-06 11:15 | NUR ---
REASSESSMENT COMPLETE, NO CHANGES NOTED, WILL CON'T TO MONITOR
--- NOTE | 2018-04-06 11:18 | OP ---
PATIENT NAME: RAMON PIERCE MEDICAL RECORD: [id number] :49 LOCATION:D[facility] D.2311 ADMISSION DATE:04/03/18 SURGEON: LIDYA CASH MD DATE OF OPERATION: 04/04/2018 PROCEDURES: 1. Left heart catheterization. 2. Selective coronary angiography. 3. Left ventriculogram. INDICATION: Acute respiratory failure, requiring intubation; coronary artery disease; cardiomyopathy. PROCEDURE IN DETAIL: After informed consent was obtained with detailed description of risks and benefits as well as alternative therapies, the patient elected to proceed with angiogram and heart catheterization. The right femoral area was prepped and draped in normal sterile fashion. Right femoral artery was cannulated via modified Seldinger technique with placement of 6-Arabic sheath. All catheters were exchanged through this sheath. FINDINGS: Left ventriculogram performed in standard 30-degree SPRING view reveals global hypokinesis throughout all segments. Ejection fraction less than 20%. SELECTIVE CORONARY ANGIOGRAPHY: 1. Left main has no significant angiographic disease. 2. Left anterior descending has a previously placed stent. This is widely patent with no significant restenosis or thrombosis. No significant disease else chowdhury throughout the LAD or its branches. 3. Left circumflex has previously placed stents. These are widely patent with no significant thrombosis or restenosis. No significant disease else chowdhury throughout the circumflex or its branches. 4. Right coronary has previously placed stent. This is widely patent with no significant stenosis or thrombosis. No significant disease else chowdhury throughout the RCA or its branches. OVERALL IMPRESSION: Wide patency of all the previously placed stents. Severe cardiomyopathy. Ejection fraction less than 20%. Center medical management on treatment of cardiomyopathy and respiratory failure. TRANSINT:[id number] Voice Confirmation ID: [id number] DOCUMENT ID: [id number] LIDYA CASH MD at 1118 CC: [id number] DICTATION DATE: 04/04/18 1739 BLURB WRITER: 04/04/18 [address] [facility] [address] [id number]
--- NOTE | 2018-04-06 11:18 | CN ---
PATIENT NAME:RAMON PIERCE MEDICAL RECORD: [id number] : 49 LOCATION:[place].2311 ADMIT DATE: 04/03/18 ACCOUNT: [id number] CONSULTING PHYSICIAN: LIDYA CASH MD REFERRING PHYSICIAN: BRITTANI ENRIQUEZ MD DATE OF CONSULTATION: 04/03/2018 CARDIOLOGY CONSULTATION DATE OF SERVICE: 04/03/2018 ADMITTING DIAGNOSES: 1. Acute coronary syndrome, non-Q-wave myocardial infarction. 2. Shortness of breath. 3. Chronic obstructive pulmonary disease. 4. Pneumonia. 5. Coronary artery disease. 6. Three-vessel percutaneous transluminal coronary angioplasty stent approximately 1 month ago. 7. Hyperlipidemia. HISTORY OF PRESENT ILLNESS: Mrs. Pierce presents with chest discomfort, but mostly shortness of breath that had been building over the past 2 days. Her chest x-ray is compatible with pneumonia. She has sinus tachycardia to the 110-120 range. She is quite short of breath. She has been having some chest discomfort, but only after the shortness of breath. She is status post 3-vessel PTCA stent within the past month. She has been treated with albuterol and prednisone as an outpatient for her shortness of breath and COPD. PHYSICAL EXAMINATION: GENERAL APPEARANCE: Well-nourished, well-developed, appears stated age. Level of distress, comfortable. PSYCHIATRIC: Mental status, alert, normal affect. Orientation, oriented to time, place and person. EYES: Lids and conjunctiva, noninjected. No discharge, no pallor. ENT: Lips, teeth, gums, normal dentition. Oropharynx, no cyanosis, no pallor. NECK: Carotid arteries, bilateral normal upstroke, no bruits, no thrills. JUGULAR VEINS: No jugular venous pressure or distention. CERVICAL LYMPH NODES: Nontender, nonenlarged. THYROID: Not enlarged. Nontender. No nodules. LUNGS: Respiratory effort, unlabored. CHEST: Normal curvature. No thoracic deformity. No chest wall tenderness. Percussion, resonant. Auscultation, clear. No wheezes, no rales, no rhonchi. CARDIOVASCULAR: Precordial exam, nondisplaced. No heaves or pericardial thrills. Rate and rhythm, regular. Heart sounds, normal S1, normal S2. No S3, no gallop, no rub. Systolic murmur, not heard. Diastolic murmur, not heard. EXTREMITIES: No cyanosis, no edema. Peripheral pulses, full and equal in all extremities, except as noted. No bruits appreciated. ABDOMEN: Soft, nondistended. Normal aorta. No bruit. Nontender. No masses. Liver, nontender, no hepatomegaly. Spleen, nontender, no splenomegaly. MUSCULOSKELETAL: No joint tenderness. No joint swelling. No erythema. NEUROLOGICAL: Normal gait, normal strength, normal tone. SKIN: Warm and dry. OVERALL IMPRESSION: Shortness of breath, chronic obstructive pulmonary disease CONSULT REPORT [id number] OSK,RAMON exacerbation with possible pneumonia. At this time, we will start IV antibiotics with Rocephin, and we will try to treat the tachycardia with Bystolic as her blood pressure tolerates it. Her EKG is with no acute ST-T abnormalities. The increased troponin may be demand ischemia from the shortness of breath and pneumonia and chronic obstructive pulmonary disease. Hopefully, we can avoid repeat cardiac catheterization if possible. TRANSINT:[id number] Voice Confirmation ID: [id number] DOCUMENT ID: [id number] LIDYA CASH MD at 1118 CC: [id number] DICTATION DATE: 04/03/18 1339 LAUNDROMAT MANAGER: 04/03/18 1413 ADM IN [place] [id number] [place] [address]
--- NOTE | 2018-04-06 13:00 | NUR ---
DR. TAN AT BEDSIDE, UPDATE GIVEN TO FAMILY
--- NOTE | 2018-04-06 15:00 | NUR ---
REASSESSMENT COMPLETE, NO CHANGES NOTED, WILL CON'T TO MONITOR
--- NOTE | 2018-04-06 17:07 | NUR ---
COMPLETE BATH AND LINEN CHANGE
--- NOTE | 2018-04-06 19:01 | NUR ---
REPORT RECEIVED, CARE ASSUMED. INITIAL ASSESSMENT COMPLETED, SEE FLOWSHEET FOR DETAILS. PT REMAINS SEDATED ON THE VENT AT THIS TIME. NO ACUTE CHANGES NOTED. PT REPOSITIONED FOR COMFORT. ORAL CARE PERFORMED. NO SIGNS OF ACUTE DISTRESS. VSS. WILL CONTINUE TO MONITOR.
--- NOTE | 2018-04-06 21:01 | NUR ---
FAMILY AT BEDSIDE, QUESTIONS ANSWERED. NO ACUTE CHANGES NOTED AT THIS TIME. PT REPOSITIONED FOR COMFORT. ORAL CARE PERFORMED. NO SIGNS OF ACUTE DISTRESS. WILL CONTINUE TO MONITOR.
--- NOTE | 2018-04-06 23:02 | NUR ---
REASSESSMENT COMPLETED, SEE FLOWSHEET FOR DETAILS. NO ACUTE CHANGES NOTED AT THIS TIME. PT REPOSITIONED FOR COMFORT. ORAL CARE PERFORMED. NO SIGNS OF ACUTE DISTRESS. VSS. WILL CONTINUE TO MONITOR.
[2018-04-07] VITALS (24 sets, daily range): BP systolic 87–130; BP diastolic 58–80
--- NOTE | 2018-04-07 01:02 | NUR ---
PT REPOSITIONED FOR COMFORT. ORAL CARE PERFORMED. NO ACUTE CHANGES NOTED. NO SIGNS OF ACUTE DISTRESS. WILL CONTINUE TO MONITOR.
--- NOTE | 2018-04-07 03:03 | NUR ---
REASSESSMENT COMPLETED, SEE FLOWSHEET. NO ACUTE CHANGES NOTED. PT REPOSITIONED FOR COMFORT. ORAL CARE PERFORMED. NO SIGNS OF ACUTE DISTRESS. VSS. WILL CONTINUE TO MONITOR.
[2018-04-07 04:23] LABS: BASOPHILS 0 % (0-2); EOSINOPHILS 0 % (0-7); HEMATOCRIT 30.2 % (36.0-48.0); HEMOGLOBIN 9.9 g/dL (12-16); IMMATURE GRANULOCYTES 0.3 % (0-5); LYMPHOCYTES 7.1 % (15-50); MCH 32.2 pg (26.0-34.0); MCHC 32.8 g/dL (31.0-37.0); MCV 98.4 fL (80.0-100.0); MEAN PLATELET VOLUME 10.6 fL (7.4-10.4); MONOCYTES 12.7 % (2-11); NEUTROPHILS 79.9 % (40-80); PLATELET COUNT 309 10x3/uL (130-400); RBC 3.07 10x6/uL (4.00-5.40); WBC 10.9 10x3/uL (4.8-10.8)
[2018-04-07 04:26] LABS: INR 1.12 (0.85-1.17); PROTIME 13.9 SECONDS (11.6-15.0)
[2018-04-07 04:40] LABS: ALBUMIN 2.2 g/dL (3.4-5.0); ANION GAP 14.1 mmol/L (8-16); BILIRUBIN - TOTAL 0.26 mg/dL (0.2-1.3); CARBON DIOXIDE 25.1 mmol/L (21.0-32.0); CREATININE - SERUM 1.2 mg/dL (0.6-1.3); MAGNESIUM - SERUM 2.3 mg/dL (1.8-2.4); PHOSPHOROUS 3.5 mg/dL (2.5-4.9); POTASSIUM - SERUM 4.2 mmol/L (3.5-5.1)
[2018-04-07 05:00] LABS: TROPONIN-I 13.011 ng/mL (0.000-0.060)
--- NOTE | 2018-04-07 05:03 | NUR ---
PT REPOSITIONED FOR COMFORT. ORAL CARE PERFORMED. NO SIGNS OF ACUTE CHANGES. AM LABS REVIEWED. NO SIGNS OF ACUTE DISTRESS. WILL CONTINUE TO MONITOR.
--- NOTE | 2018-04-07 07:20 | NUR ---
REPORT RECEIVED. ASSESSMENT COMPLETE PER FLOWSHEET. REFER FOR COMPLETE FINDINGS. VSS PT ALERT FOLLOWING COMMANDS, O2 VIA ETT 30% O2 SAT 97% ORAL ENDOTRACH CARE ADM. REPOSITIONED ON L SIDE FOR COMFORT. NEEDS MET. WILL CONTINUE TO MONITOR
--- NOTE | 2018-04-07 09:30 | NUR ---
AT BEDSIDE, UPDATE GIVEN, PT SWITHCHED TO CPAP AT THIS TIME,
--- NOTE | 2018-04-07 11:15 | NUR ---
REASSESSMENT COMPLETE PER FLOW SHEET. VSS. NO NEW CHANGES. PT RESTING COMFORTABLY. AT BEDSIDE. WILL CONTINUE TO MONITOR
--- NOTE | 2018-04-07 11:25 | NUR ---
PT BACK TO [facility] AT THIS TIME
--- NOTE | 2018-04-07 13:25 | NUR ---
REPOSITIONED FOR COMFORT, ORAL CARE PROVIDED
--- NOTE | 2018-04-07 15:15 | NUR ---
REASSESSMENT COMPLETE,NO CHANGES NOTED, REPOSITIONED FOR COMFORT, ORAL CARE PROVIDED
--- NOTE | 2018-04-07 17:15 | NUR ---
REPOSITIONED FOR COMFORT, ORAL CARE PROVIDED
--- NOTE | 2018-04-07 19:01 | NUR ---
REPORT RECEIVED, CARE ASSUMED. INITIAL ASSESSMENT COMPLETED, SEE FLOWSHEET FOR DETAILS. PT REPOSITIONED FOR COMFORT. ORAL CARE PERFORMED. NO SIGNS OF ACUTE DISTRESS. WILL CONTINUE TO MONITOR.
--- NOTE | 2018-04-07 21:01 | NUR ---
PT REPOSITIONED FOR COMFORT. ORAL CARE PERFORMED. PT IS STILL SEDATED AND ON THE VENT. FAMILY AT BEDSIDE, QUESTIONS ANSWERED. TUBE FEEDING INITIATED PER ORDERS. NO SIGNS OF ACUTE DISTRESS. WILL CONTINUE TO MONITOR.
--- NOTE | 2018-04-07 23:02 | NUR ---
REASSESSMENT COMPLETED, SEE FLOWSHEET FOR DETAILS. PT REPOSITIONED FOR COMFORT. ORAL CARE PERFORMED. NO SIGNS OF ACUTE DISTRESS. WILL CONTINUE TO MONITOR.
[2018-04-08] VITALS (24 sets, daily range): BP systolic 101–142; BP diastolic 58–103
--- NOTE | 2018-04-08 01:02 | NUR ---
PT REPOSITIONED FOR COMFORT. ORAL CARE PERFORMED. NO SIGNS OF ACUTE DISTRESS. WILL CONTINUE TO MONITOR.
--- NOTE | 2018-04-08 03:03 | NUR ---
REASSESSMENT COMPLETED, SEE FLOWSHEET FOR DETAILS. PT REPOSITIONED FOR COMFORT. NO SIGNS OF ACUTE DISTRESS. WILL CONTINUE TO MONITOR.
[2018-04-08 04:29] LABS: BASOPHILS 0 % (0-2); EOSINOPHILS 0.1 % (0-7); HEMATOCRIT 31.7 % (36.0-48.0); HEMOGLOBIN 10.2 g/dL (12-16); IMMATURE GRANULOCYTES 0.5 % (0-5); LYMPHOCYTES 6.6 % (15-50); MCH 31.7 pg (26.0-34.0); MCHC 32.2 g/dL (31.0-37.0); MCV 98.4 fL (80.0-100.0); MEAN PLATELET VOLUME 10.6 fL (7.4-10.4); MONOCYTES 9.8 % (2-11); PLATELET COUNT 305 10x3/uL (130-400); RBC 3.22 10x6/uL (4.00-5.40); RDW 14.9 % (11.5-14.5); WBC 10.4 10x3/uL (4.8-10.8)
[2018-04-08 04:34] LABS: INR 1.05 (0.85-1.17); PROTIME 13.2 SECONDS (11.6-15.0)
[2018-04-08 05:00] LABS: ALBUMIN 2.4 g/dL (3.4-5.0); ANION GAP 11.9 mmol/L (8-16); BILIRUBIN - TOTAL 0.31 mg/dL (0.2-1.3); CALCIUM 7.7 mg/dL (8.5-10.1); CARBON DIOXIDE 26.6 mmol/L (21.0-32.0); MAGNESIUM - SERUM 2.3 mg/dL (1.8-2.4); PHOSPHOROUS 3.4 mg/dL (2.5-4.9); POTASSIUM - SERUM 4.5 mmol/L (3.5-5.1); PROTEIN - SERUM 5.2 g/dL (6.4-8.2)
--- NOTE | 2018-04-08 05:03 | NUR ---
PT REPOSITIONED FOR COMFORT. NO SIGNS OF ACUTE DISTRESS. WILL CONTINUE TO MONITOR.
[2018-04-08 05:20] LABS: TROPONIN-I 8.241 ng/mL (0.000-0.060)
--- NOTE | 2018-04-08 07:10 | NUR ---
REPORT RECEIVED. ASSESSMENT COMPLETE PER FLOW SHEET. VSS. NO NEW CHANGES WILL CONTINUE TO MONITOR
--- NOTE | 2018-04-08 09:00 | NUR ---
DR RUIZ AT BEDSIDE GIVEN UDPATE
--- NOTE | 2018-04-08 09:36 | NUR ---
NUTRITION F/U PT REMAINS ON VENT. PULMOCARE AT 20 CC/HR WITH GOAL RATE 40 CC/HR. PROCALAMINE AT 50 CC/HR. RECOMMEND DC PROCALAMINE WHEN TUBE FEED RATE ADVANCED. RD FOLLOWING
--- NOTE | 2018-04-08 11:00 | NUR ---
REASSESSMENT COMPLETE PER FLOW SHEET. VSS NO NEW CHANGES WILL CONTINUE TO MONITOR
--- NOTE | 2018-04-08 13:00 | NUR ---
PT RESTING COMFORTABLY VSS NO NEW CHANGE SWILL CONTINUE TO MONITOR
--- NOTE | 2018-04-08 15:20 | NUR ---
REASSESSMENT COMPLETE PER FLOW SHEET. VSS. NO NEW CHANGES PT RESTING COMFORTABLY WILL CONTINUE TO MONITOR
--- NOTE | 2018-04-08 17:00 | NUR ---
AT BEDSIDE. PT CPAP TRIAL FAIL AT THIS TIME. WILL REASSESS IN AM.
--- NOTE | 2018-04-08 19:20 | NUR ---
REPORT RECEIVED, SHIFT ASSESSMENT COMPLETED PER FLOW SHEET. ON VENT VIA ETT. VSS. OGT PLACEMENT VERIFIED VIA AUSCULTATION. KIM CATHETER TO GRAVITY SECURED. INCONTINENT OF BM, CLEANED AND COMPLETE BED LINEN CHANGE PROVIDED. ORAL CARE PROVIDED. REPOSITIONED IN BED. WILL CONTINUE TO MONITOR.
--- NOTE | 2018-04-08 20:04 | NUR ---
REMAINS AGITATED ON VENTILATOR, UNABLE TO KEEP CALM, BITING ON ETT, TITRATING DIPRIVAN. WILL CONTINUE TO MONITOR.
--- NOTE | 2018-04-08 21:00 | NUR ---
ORAL CARE PROVIDED, REPOSITIONED IN BED. WILL CONTINUE TO MONITOR.
--- NOTE | 2018-04-08 23:06 | NUR ---
REASSESSMENT COMPLETED PER FLOW SHEET, SEE FOR DETAILS. VSS. ORAL CARE PROVIDED. REPOSITIONED IN BED. WILL CONTINUE TO MONITOR.
[2018-04-09] VITALS (24 sets, daily range): BP systolic 114–149; BP diastolic 64–95
--- NOTE | 2018-04-09 00:38 | NUR ---
INCONTINENT OF GREEN LIQUID STOOL. PATIENT CLEANED. KIM CARE PROVIDED. COMPLETE BED LINEN CHANGE PROVIDED. REPOSITIONED IN BED. WILL CONTINUE TO MONITOR.
--- NOTE | 2018-04-09 01:00 | NUR ---
NO ACUTE CHANGES NOTED. WILL CONTINUE TO MONITOR.
--- NOTE | 2018-04-09 03:01 | NUR ---
REASSESSMENT COMPLETED PER FLOW SHEET, SEE FOR DETAILS. NO ACUTE CHANGES NOTED. WILL CONTINUE TO MONITOR.
--- NOTE | 2018-04-09 05:00 | NUR ---
NO ACUTE CHANGES NOTED. WILL CONTINUE TO MONITOR.
--- NOTE | 2018-04-09 05:37 | NUR ---
TUBE FEEDING EMESIS NOTED. INCONTINENT OF LIQUID BM. TUBE FEEDING PLACED ON HOLD. COMPLETE BED BATH GIVEN WITH SOAP AND WATER. COMPLETE BED LINEN CHANGE PROVIDED. ORAL CARE PROVIDED. REPOSITIONED IN BED. WILL CONTINUE TO MONITOR.
[2018-04-09 06:17] LABS: INR 1.05 (0.85-1.17); PROTIME 13.2 SECONDS (11.6-15.0)
[2018-04-09 06:32] LABS: C-REACTIVE PROTEIN 3.4 mg/dL (0.0-0.9)
[2018-04-09 06:47] LABS: TROPONIN-I 8.688 ng/mL (0.000-0.060)
--- NOTE | 2018-04-09 07:00 | NUR ---
BEDSIDE SHIFT REPORT ADM. NO NEW FINDINGS.
[2018-04-09 07:18] LABS: ERYTHROCYTE SEDIMENTATION RATE 39 mm/hr (0-30)
[2018-04-09 07:23] LABS: HEMATOCRIT 33.4 % (36.0-48.0); HEMOGLOBIN 10.9 g/dL (12-16); IMMATURE GRANULOCYTES 0.4 % (0-5); MCH 31.8 pg (26.0-34.0); MCHC 32.6 g/dL (31.0-37.0); MCV 97.4 fL (80.0-100.0); MEAN PLATELET VOLUME 10.8 fL (7.4-10.4); PLATELET COUNT 354 10x3/uL (130-400); RBC 3.43 10x6/uL (4.00-5.40); RDW 15.1 % (11.5-14.5); WBC 9.8 10x3/uL (4.8-10.8)
--- NOTE | 2018-04-09 07:28 | NUR ---
REPORT RECEIVED. ASSESSMENT COMPLETE PER FLOW SHEET. VSS. RT AT BEDSIDE SEDATION DECREASED CPAP TRIAL ADM. WILL CONTINUE TO MONITOR
[2018-04-09 07:52] LABS: ALBUMIN 2.4 g/dL (3.4-5.0); ALKALINE PHOSPHATASE 91 U/L (46-116); CALC OSMOLALITY 288 mosm/kg (275-300); CALCIUM 8.3 mg/dL (8.5-10.1); CARBON DIOXIDE 22.5 mmol/L (21.0-32.0); CHLORIDE - SERUM 103 mmol/L (98-107); CREATININE - SERUM 0.8 mg/dL (0.6-1.3); GLUCOSE 155 mg/dL (74-106); POTASSIUM - SERUM 4.9 mmol/L (3.5-5.1); SODIUM 138 mmol/L (136-145); UREA NITROGEN 40 mg/dL (7-18); eGFR NON AFRICAN AMERICAN 75 mL/min (90-120)
[2018-04-09 07:57] LABS: ALT (SGPT) 518 U/L (10-68)
[2018-04-09 08:58] LABS: LYMPHOCYTES 4 % (15-50); MONOCYTES 6 % (2-11); NEUTROPHILS 89 % (40-80); PLATELET ESTIMATE NORMAL
--- NOTE | 2018-04-09 09:55 | NUR ---
NUTRITION F/U PT WITH PULMOCARE OFF AT THIS TIME FOR CPAP TRIALS PER NURSING REPORT. NURSING TO ADDRESS PROCALAMINE IF TUBE FEEDS RESUMED. RD FOLLOWING
--- NOTE | 2018-04-09 11:00 | NUR ---
REASSESSMENT COMPLETE PER FLOW SHEET. VSS. NO NEW CHANGES WILL CONTNIUE TO MONITOR
--- NOTE | 2018-04-09 11:30 | NUR ---
BRONCH AT BEDSIDE AWARE AND IN WAITING AREA. VSS. NO NEW CHANGES
--- NOTE | 2018-04-09 12:20 | NUR ---
AT BEDSIDE GIVEN UPDATE. NO NEW CHANGES
--- NOTE | 2018-04-09 13:40 | NUR ---
VENT ALARMING. ORAL ENODTRACH CARE ADM.
--- NOTE | 2018-04-09 15:00 | NUR ---
REASSESSMENT COMPLETE PER FLOW SHEET. VSS. NO NEW CHANGES WILL CONTINUE TO MONITOR
--- NOTE | 2018-04-09 16:08 | NUR ---
PT SWITCHED TO CPAP AT THIS TIME. VSS. TOLERATING WELL WILL CONTINUE TO MONITOR
--- NOTE | 2018-04-09 19:30 | NUR ---
REPORT REC'D AND CARE ASSUMED, REC'D PT ON VENT VIA 7.5 ETT TAPED SECURELY SEE FLOW SHEET FOR VENT SETTINGS, PT AROUSABLE TO DEEP STIMULI, DOES NOT FOLLOW COMMANDS, RTLSCL DRSG CDI WITH NS @ 10CC/HR, DIPRIVAN @ 45MCG/KG/MIN, PROCALAMINE @ 50CC/HR, AND DOBUTAMINE @ 5MCG/KG/MIN, OGT TAPED SECURELY TO ETT PULMOCARE INFUSING @ 40CC/HR, RESIDUAL 0, KIM PATENT DRAINING BLOOD TINGED URINE, GENERALIZED EDEMA, BILAT SOFT WRIST RESTRAINTS INTACT, SR UP X 2, VISIBLE TO NURSES STATION.
--- NOTE | 2018-04-09 19:53 | MORECARE ---
CASE MANAGEMENT DISCHARGE SUMMARY PATIENT: RAMON PIERCE UNIT: [id number] ADM DATE: 04/03/18 AGE: 72 : [birth year] SEX: F ROOM/BED: D.2311 AUTHOR: IDRIS EDOUARD PHYSICIAN: REFERRING PHYSICIAN: BRITTANI ENRIQUEZ MD DATE OF SERVICE: 04/09/18 Discharge Plan Patient Name: RAMON PIERCE [facility] [facility] 1945 Planned Disposition: Anticipated Discharge Date: Discharge Date: Expected LOS: Initial Reviewer: [email or web address] Initial Review Date: 04/03/2018 Generated: 04/09/18 8:53 pm Comments DCP- Discharge Planning Updated by [email or web address]: Alanis Cavazos on 04/09/18 6:[address] CM attempted to meet with patient regarding discharge planning. Patient is currently on vent and no family available at this time.CM will continue to follow and assist as needed with discharge planning / needs. DCP- Discharge Planning Updated by [email or web address]: Alanis Cavazos on 04/05/18 5:[address] CM [facility]CTED [facility] AND LEFT MESSAGE WITH AMANDA POLLACK. CM will continue to follow and assist as needed with discharge planning / needs. Patient Name: RAMON PIERCE Page [phone] at 1953 All edits/amendments must be made on the electronic document DICTATION DATE: 04/09/181951 HEAD OF IT: EMILY 04/09/181951 RPT#: [id number] DC DATE: STATUS: ADM IN [facility] [address] [place] [address] END OF REPORT
--- NOTE | 2018-04-09 20:00 | NUR ---
NO VISITORS IN AT THIS TIME.
--- NOTE | 2018-04-09 21:30 | NUR ---
EVENING MEDS GIVEN, PT REPOSITIONED ONTO RIGHT SIDE AND SUPPORTED WITH PILLOWS, ORAL CARE PROVIDED.
--- NOTE | 2018-04-09 23:30 | NUR ---
REASSESSMENT COMPLETED, PT REPOSITIONED FOR COMFORT, TF RESIDUAL 10CC, VSS, WILL CONT TO MONITOR FOR CHANGES.
[2018-04-10] VITALS (24 sets, daily range): BP systolic 103–138; BP diastolic 42–89
--- NOTE | 2018-04-10 01:00 | NUR ---
NO CHANGES IN STATUS AT THIS TIME
--- NOTE | 2018-04-10 03:00 | NUR ---
REASSESSMENT COMPLETED, PT RESTING EYES CLOSED, NO DISTRESS NOTED, VSS, WILL CONT TO MONITOR FOR CHANGES.
--- NOTE | 2018-04-10 04:30 | NUR ---
AM LAB DRAWN FROM CVL AND SENT TO LAB, NO VISITORS IN AT THIS TIME
[2018-04-10 04:41] LABS: INR 1.11 (0.85-1.17); PROTIME 13.8 SECONDS (11.6-15.0)
[2018-04-10 05:05] LABS: PHOSPHOROUS 3.8 mg/dL (2.5-4.9)
--- NOTE | 2018-04-10 05:10 | NUR ---
PT INCONTINENT OF LOOSE BROWN STOOL, COMPLETE BATH AND LINEN CHANGE PROVIDED, PT REPOSITIONED UP IN BED, HAIR COMBED, AND ORAL CARE PROVIDED, PT TOLERATED WELL.
[2018-04-10 05:12] LABS: TROPONIN-I 6.932 ng/mL (0.000-0.060)
--- NOTE | 2018-04-10 07:48 | NUR ---
MARIEL PLACED ON HOLD FOR 30 MIN
--- NOTE | 2018-04-10 10:00 | NUR ---
RT PLACED VENT IN CPAP, DIPRIVAN OFF
--- NOTE | 2018-04-10 11:00 | NUR ---
NO CHANGE NOTED
[2018-04-10 21:06] LABS: ACID FAST SMEAR Negative (()); AFB SPECIMEN PROCESSING Concentration (())
--- NOTE | 2018-04-10 21:49 | NUR ---
DR GARDINER, NOTIFIED OF FINDINGS ON EKG AND INTERMITTENLY SUSTAINING HR OF 35 TO 40, DID ALSO INFORM HIM THAT BP'S ARE OK - NO NEW ORDERS RECEIVED AT THIS TIME
[2018-04-11] VITALS (24 sets, daily range): BP systolic 112–146; BP diastolic 45–82
[2018-04-11 05:45] LABS: BASOPHILS 0 % (0-2); EOSINOPHILS 0 % (0-7); HEMATOCRIT 28.3 % (36.0-48.0); HEMOGLOBIN 9.1 g/dL (12-16); IMMATURE GRANULOCYTES 0.6 % (0-5); LYMPHOCYTES 1.1 % (15-50); MCH 31.2 pg (26.0-34.0); MCHC 32.2 g/dL (31.0-37.0); MCV 96.9 fL (80.0-100.0); MEAN PLATELET VOLUME 10.5 fL (7.4-10.4); MONOCYTES 5.7 % (2-11); NEUTROPHILS 92.6 % (40-80); PLATELET COUNT 399 10x3/uL (130-400); RBC 2.92 10x6/uL (4.00-5.40); RDW 15.1 % (11.5-14.5); WBC 12.1 10x3/uL (4.8-10.8)
[2018-04-11 06:01] LABS: INR 1.09 (0.85-1.17); PROTIME 13.6 SECONDS (11.6-15.0)
[2018-04-11 06:15] LABS: ALKALINE PHOSPHATASE 73 U/L (46-116); BILIRUBIN - TOTAL 0.28 mg/dL (0.2-1.3); CALC OSMOLALITY 279 mosm/kg (275-300); CARBON DIOXIDE 24.5 mmol/L (21.0-32.0); CHLORIDE - SERUM 104 mmol/L (98-107); CREATININE - SERUM 0.7 mg/dL (0.6-1.3); GLUCOSE 159 mg/dL (74-106); MAGNESIUM - SERUM 1.7 mg/dL (1.8-2.4); PROTEIN - SERUM 4.8 g/dL (6.4-8.2); SODIUM 134 mmol/L (136-145); THYROID STIMULATING HORMONE 0.98 uIU/mL (0.36-3.74); UREA NITROGEN 39 mg/dL (7-18); eGFR NON AFRICAN AMERICAN 88 mL/min (90-120)
[2018-04-11 06:20] LABS: ALT (SGPT) 256 U/L (10-68); TROPONIN-I 5.172 ng/mL (0.000-0.060)
--- NOTE | 2018-04-11 07:20 | NUR ---
DIPRIVAN OFF AND RT PLACED VENT INTO CPAP MODE.
--- NOTE | 2018-04-11 11:30 | NUR ---
EXTUBATED TO 4LPM/NC PER RT
--- NOTE | 2018-04-11 11:39 | NUR ---
O2 SAT 98%
--- NOTE | 2018-04-11 19:00 | NUR ---
Shift assessment complete. Pt is A&O x1, confused of time, place and situation. Reoriented. PERRLA, 3 mm, brisk reaction to light. No teeth noted, she stated she wears dentures. Throat is sore, but she says it's improving. S1S2 audible, HR 97 NSR with BBB showing on monitor. Rt subclavian CVL dressing intact, biopatch on, swab caps in use. Dobutamine infusing @ 5 mcg/kg/min and NS @ KVO. CVP zeroed, reading is 14. RR shallow, clear lung sounds heard bilat in upper and middle lobes, diminished at the bases. ABD is flat and nontender to touch, she is passing gas, BS active x4. Childers cath intact draining concentrated urine. Radial and pedal pulses palp. Redness noted on coccyx. 2 L/min O2 via NC on, VSS. Call light in reach, pt is in good spirits. Educated her on how to use her call light. Will cont with POC.
--- NOTE | 2018-04-11 21:00 | NUR ---
Partial linen change provided. Non-productive cough noted. Pt could assist with turning, but she has moderate weakness. Call light in reach, bed in lowest position. Will cont to monitor.
--- NOTE | 2018-04-11 21:30 | NUR ---
called, password given, update provided.
--- NOTE | 2018-04-11 23:00 | NUR ---
Reassessment complete. Pt is confused, she reorients easily. She does remember some about her past. S1S2 audible, HR 85 BBB showing on monitor. VSS. RR shallow, she states that she is breathing normal for her. Clear lung sounds heard bilat through upper and middle lobes, diminished at the bases. Childers intact draining concentrated urine. Repositioned for comfort. Will cont with POC.
[2018-04-12] VITALS (18 sets, daily range): BP systolic 112–136; BP diastolic 53–79; Ht 157.5 cm; Wt 59.1 kg
--- NOTE | 2018-04-12 01:00 | NUR ---
Pt remains in good spirits. VSS. Call light in reach, pt is lying in bed watching TV with no needs at this time. Will cont to monitor.
--- NOTE | 2018-04-12 03:00 | NUR ---
Reassessment complete. Productive cough noted, clear secretions. No further changes. VSS. Call light in reach, bed in lowest position. Will cont with POC.
--- NOTE | 2018-04-12 05:00 | NUR ---
Repositioned for comfort. AM labs drawn via central line. Call light in reach, bed in lowest position. Will cont with POC.
[2018-04-12 05:41] LABS: BASOPHILS 0.1 % (0-2); EOSINOPHILS 0 % (0-7); HEMATOCRIT 28.8 % (36.0-48.0); HEMOGLOBIN 9.4 g/dL (12-16); IMMATURE GRANULOCYTES 0.4 % (0-5); MCH 31.6 pg (26.0-34.0); MCHC 32.6 g/dL (31.0-37.0); MEAN PLATELET VOLUME 10.1 fL (7.4-10.4); MONOCYTES 7.9 % (2-11); NEUTROPHILS 89.6 % (40-80); PLATELET COUNT 423 10x3/uL (130-400); RBC 2.97 10x6/uL (4.00-5.40); WBC 13.7 10x3/uL (4.8-10.8)
--- NOTE | 2018-04-12 05:45 | NUR ---
PARTIAL LINEN CHANGE AND BATH PROVIDED. KIM CARE PROVIDED.
--- NOTE | 2018-04-12 05:50 | NUR ---
STOOL SAMPLE COLLECTED. SENT TO LAB.
[2018-04-12 05:53] LABS: ALBUMIN 2.3 g/dL (3.4-5.0); ALKALINE PHOSPHATASE 67 U/L (46-116); ALT (SGPT) 229 U/L (10-68); BILIRUBIN - TOTAL 0.47 mg/dL (0.2-1.3); CALC OSMOLALITY 291 mosm/kg (275-300); CALCIUM 7.9 mg/dL (8.5-10.1); CHLORIDE - SERUM 106 mmol/L (98-107); CREATININE - SERUM 0.8 mg/dL (0.6-1.3); MAGNESIUM - SERUM 1.7 mg/dL (1.8-2.4); PHOSPHOROUS 4.3 mg/dL (2.5-4.9); POTASSIUM - SERUM 5.2 mmol/L (3.5-5.1); PROTEIN - SERUM 5.3 g/dL (6.4-8.2); SODIUM 141 mmol/L (136-145); UREA NITROGEN 40 mg/dL (7-18); eGFR NON AFRICAN AMERICAN 75 mL/min (90-120)
[2018-04-12 05:59] LABS: GLUCOSE 110 mg/dL (74-106)
--- NOTE | 2018-04-12 06:05 | NUR ---
LAB CALLED AND STATED STOOL SAMPLE WAS NOT SUFFICENT. WILL REPORT TO ONCOMING NURSE.
--- NOTE | 2018-04-12 06:30 | NUR ---
REPLACING MG PER PROTOCOL.
--- NOTE | 2018-04-12 07:16 | NUR ---
PATIENT IS UNABLE TO PERFORM PROPER TECHNIQUE WITH METANEB. PATIENT ALSO WILL NOT HOLD THE METANEB.
--- NOTE | 2018-04-12 09:43 | NUR ---
NUTRITION F/U PT EXTUBATED, AHA DIET STARTED. WILL PROVIDE DIET, MONITOR PO INTAKE. RD FOLLOWING
[2018-04-12 14:14] LABS: FUNGUS STAIN Final report (())
--- NOTE | 2018-04-12 19:00 | NUR ---
Shift assessment complete. Pt is A&O x4 with no complaints of pain or discomfort at this time. She has her top and bottom dentures in and she is watching TV. PERRLA, 3 mm brisk reaction to light. Weak but equal foot pumps and hand nuclear worker technician. S1S2 audible, NSR with BBB showing on monitor, rate of 87 bpm. RR even and unlabored, clear lung sounds heard bilat in upper and middle lobes, diminished at the bases. ABD is flat, BS active x4. Rt subclavian CVL dressing intact, biopatch noted on insertion site, infusing Dobutamine @ 2.5 mcg/kg/min and NS @ KVO. 2 L/min O2 via NC, O2 sat 98%. Childers cath intact draining bloody urine. Dependent edema noted in upper ext, generalized edema in lower ext. Radial and pedal pulses palp. ICU monitors on and functioning. Repositioned for comfort, call light in reach, no further needs at this time. Will cont with POC.
--- NOTE | 2018-04-12 21:00 | NUR ---
Complete bed bath and linen change provided. Small skin tear noted on buttocks. Mepilex dressing applied, dated, labeled, and timed. Pt tolerated well. Oral care and refreshments provided. VSS. Pt denies any further needs. Call light in reach, will cont with POC.
--- NOTE | 2018-04-12 22:00 | NUR ---
RR even and unlabored, O2 sat 95-98%, removed O2 per titration orders. Will cont to monitor.
--- NOTE | 2018-04-12 23:00 | NUR ---
Pt confused at this time, reorients easily, she is very easily distracted. She has a hard time gripping objects (water, flutter valve, IS). Hand operations intelligence superintendent are weak, but equal. VSS, O2 sat 92-98%, no signs of acute distress noted. Call light in reach, will cont with POC.
--- NOTE | 2018-04-13 01:00 | NUR ---
Pt resting peacefully with no signs of acute distress noted. IS use x5, good effort, 600 mL pulled. Flutter valve used x5. Will cont to encourage IS and flutter use.
[2018-04-13 03:00] VITALS: BP 139/90
--- NOTE | 2018-04-13 03:00 | NUR ---
Pt remains confused at this time. Reorients easily. VSS. No needs at this time. Repositioned for comfort.
--- NOTE | 2018-04-13 05:00 | NUR ---
Childers care provided. Refreshments brought to bedside. Oral care provided, repositioned for comfort. VSS. Will cont with POC. Call light in reach.
[2018-04-13 06:07] LABS: BASOPHILS 0 % (0-2); EOSINOPHILS 0 % (0-7); HEMATOCRIT 29.3 % (36.0-48.0); HEMOGLOBIN 9.5 g/dL (12-16); IMMATURE GRANULOCYTES 0.6 % (0-5); LYMPHOCYTES 3.2 % (15-50); MCH 31.6 pg (26.0-34.0); MCHC 32.4 g/dL (31.0-37.0); MCV 97.3 fL (80.0-100.0); MEAN PLATELET VOLUME 10.2 fL (7.4-10.4); MONOCYTES 8.7 % (2-11); NEUTROPHILS 87.5 % (40-80); PLATELET COUNT 454 10x3/uL (130-400); RBC 3.01 10x6/uL (4.00-5.40); RDW 15.1 % (11.5-14.5)
[2018-04-13 06:33] LABS: CALC OSMOLALITY 290 mosm/kg (275-300); CALCIUM 8.2 mg/dL (8.5-10.1); CARBON DIOXIDE 26.7 mmol/L (21.0-32.0); CHLORIDE - SERUM 104 mmol/L (98-107); CREATININE - SERUM 0.8 mg/dL (0.6-1.3); GLUCOSE 135 mg/dL (74-106); POTASSIUM - SERUM 5.2 mmol/L (3.5-5.1); SODIUM 139 mmol/L (136-145); UREA NITROGEN 42 mg/dL (7-18); eGFR NON AFRICAN AMERICAN 75 mL/min (90-120)
[2018-04-13 07:00] VITALS: BP 144/87
--- NOTE | 2018-04-13 09:30 | NUR ---
DOBUTAMINE DCD PER DR INIGUEZ ORDERS.
[2018-04-13 11:00] VITALS: BP 132/83
--- NOTE | 2018-04-13 14:41 | NUR ---
PT IN ROOM ASSESSING PT FOR PHYSICAL THERAPY.
[2018-04-13 15:00] VITALS: BP 140/85
--- NOTE | 2018-04-13 16:40 | NUR ---
SITTING UP IN BED EATING SUPPER AT BEDSIDE.
--- NOTE | 2018-04-13 18:15 | MORECARE ---
CASE MANAGEMENT DISCHARGE SUMMARY PATIENT: RAMON PIERCE UNIT: [id number] ADM DATE: 04/03/18 AGE: 72 : [birth year] SEX: F ROOM/BED: D.2311 AUTHOR: IDRIS EDOUARD PHYSICIAN: REFERRING PHYSICIAN: BRITTANI ENRIQUEZ MD DATE OF SERVICE: 04/13/18 Discharge Plan Patient Name: RAMON PIERCE [facility] [facility] 1945 Planned Disposition: Home Anticipated Discharge Date: Discharge Date: Expected LOS: Initial Reviewer: [email or web address] Initial Review Date: 04/03/2018 Generated: 04/13/18 7:14 pm DCP- Discharge Planning Updated by TIKI Cavazos on 04/09/18 6:[address] CM attempted to meet with patient regarding discharge planning. Patient is currently on vent and no family available at this time.CM will continue to follow and assist as needed with discharge planning / needs. DCP- Discharge Planning Updated by LATONIA: Alanis Cavazos on 04/05/18 5:[address] CM CONTACTED [facility] AND LEFT MESSAGE WITH AMANDA POLLACK. CM will continue to follow and assist as needed with discharge planning / needs. Last DP export: 04/09/18 6:53 pm Patient Name: RAMON PIERCE Page [id number] at 1815 All edits/amendments must be made on the electronic document DICTATION DATE: 04/13/181813 ELECTRIC RAZOR ASSEMBLER: EMILY 04/13/181813 RPT#: [id number] DC DATE: STATUS: ADM IN [facility] [address] [place] [address] END OF REPORT
--- NOTE | 2018-04-13 18:22 | MORECARE ---
CASE MANAGEMENT DISCHARGE SUMMARY PATIENT: RAMON PIERCE UNIT: [id number] ADM DATE: 04/03/18 AGE: 72 : [birth year] SEX: F ROOM/BED: D.2311 AUTHOR: JAVAN,DOC PHYSICIAN: REFERRING PHYSICIAN: BRITTANI ENRIQUEZ MD DATE OF SERVICE: 04/13/18 Discharge Plan Patient Name: RAMON PIERCE Facility: [facility]:[place] : 1945 Planned Disposition: Home Anticipated Discharge Date: Discharge Date: Expected LOS: Initial Reviewer: [email or web address] Initial Review Date: 04/03/2018 Generated: 04/13/18 7:21 pm DCP- Discharge Planning Updated by [email or web address] Cavazos on 04/09/18 6:[address] CM attempted to meet with patient regarding discharge planning. Patient is currently on vent and no family available at this time.CM will continue to follow and assist as needed with discharge planning / needs. DCP- Discharge Planning Updated by [email or web address] Cavazos on 04/05/18 5:[address] CM CONTACTED [facility] AND LEFT MESSAGE WITH AMANDA POLLACK. CM will continue to follow and assist as needed with discharge planning / needs. DCPIA - Discharge Planning Initial Assessment Updated by [email or web address]: Alanis Cavazos on 04/13/18 6:15 pm * Is the patient Alert and Oriented? Yes * How many steps to enter\exit or inside your home? * PCP [facility]nette Magall[facility] * Preadmission Environment Home with Family * ADLs Independent * Equipment None * List name and contact numbers for known caregivers / representatives who currently or will assist patient after discharge: Daren Pierce - spouse- [phone], * Verbal permission to speak to the caregivers and representatives has been obtained from the patient. Yes * Community resources currently utilized None * Additional services required to return to the preadmission environment? No * Can the patient safely return to the preadmission environment? Yes * Has this patient been hospitalized within the prior 30 days at any hospital? Yes Last DP export: 04/13/18 5:14 pm Patient Name: RAMON PIERCE Page [id number] at 1822 All edits/amendments must be made on the electronic document DICTATION DATE: 04/13/181820 TRIBAL JUDGE: EMILY 04/13/181820 RPT#: [id number] DC DATE: STATUS: ADM IN [facility] [address] [place] [address] END OF REPORT
--- NOTE | 2018-04-13 18:28 | MORECARE ---
CASE MANAGEMENT DISCHARGE SUMMARY PATIENT: RAMON PIERCE UNIT: [id number] ADM DATE: 04/03/18 AGE: 72 : [birth year] SEX: F ROOM/BED: D.2311 AUTHOR: JAVAN,DOC PHYSICIAN: REFERRING PHYSICIAN: BRITTANI ENRIQUEZ MD DATE OF SERVICE: 04/13/18 Discharge Plan Patient Name: RAMON PIERCE Facility: [facility]:[place] : 1945 Planned Disposition: Home Anticipated Discharge Date: Discharge Date: Expected LOS: Initial Reviewer: [email or web address] Initial Review Date: 04/03/2018 Generated: 04/13/18 7:28 pm Comments DCP- Discharge Planning Updated by [email or web address]: Alanis Cavazos on 04/13/18 5:[address] Patient Name: RAMON PIERCE Admission Status: ER Accout number: [id number] Admission Date: 04-03-2018 : 1945 Admission Diagnosis:HEART FAILURE, UNSPECIFIED Attending: BRITTANI ENRIQUEZ Current LOS: 10 Anticipated DC Date: Planned Disposition: Home Primary Insurance: [employer] Discharge Planning Comments: CM met with patient at bedside. Patient states she lives at home with her and plans to return to their home upon discharge. Patient states she may need HH or celebrity chef entrepreneur media personality upon discharge. She may also need BiPap / Home 02 upon discharge. CM will contact [place] to find out what is required for DME / HH. CM will continue to follow and assist as needed with discharge planning / needs. Heating And Ventilating Worker: Alanis Cavazos DCP- Discharge Planning Updated by [email or web address]: Alanis Cavazos on 04/09/18 6:[address] CM attempted to meet with patient regarding discharge planning. Patient is currently on vent and no family available at this time.CM will continue to follow and assist as needed with discharge planning / needs. DCP- Discharge Planning Updated by [email or web address]: Alanis Cavazos on 04/05/18 5:[address] CM CONTACTED [facility] AND LEFT MESSAGE WITH AMANDA POLLACK. CM will continue to follow and assist as needed with discharge planning / needs. DCPIA - Discharge Planning Initial Assessment Updated by [email or web address]: Alanis Cavazos on 04/13/18 6:15 pm * Is the patient Alert and Oriented? Yes * How many steps to enter\exit or inside your home? * PCP [facility]nette Magallanes [facility] [facility] * [facility] * Preadmission Environment Home with Family * ADLs Independent * Equipment None * List name and contact numbers for known caregivers / representatives who currently or will assist patient after discharge: Daren Pierce - spouse- [phone], * Verbal permission to speak to the caregivers and representatives has been obtained from the patient. Yes * Community resources currently utilized None * Additional services required to return to the preadmission environment? No * Can the patient safely return to the preadmission environment? Yes * Has this patient been hospitalized within the prior 30 days at any hospital? Yes Last DP export: 04/13/18 5:21 pm Patient Name: RAMON PIERCE Page [id number] at 1828 All edits/amendments must be made on the electronic document DICTATION DATE: 04/13/181826 BILLET HEATER: EMILY 04/13/181826 RPT#: [id number] DC DATE: STATUS: ADM IN [facility] [address] [place] [address] END OF REPORT
[2018-04-13 19:00] VITALS: BP 136/68; BP 141/75
--- NOTE | 2018-04-13 19:00 | NUR ---
Shift assessment complete. Pt is confused to situation. She reoirents easily. PERRLA, 3 mm, brisk reaction to light. She is sitting up in bed watching TV and she does have her dentures in. NC on @ 2 L/min, RR even and unlabored, clear lung sounds heard bilat throughout all lobes. S1S2 audible, BBB showing on monitor. ABD flat and nontender to touch, BS active x4. Childers cath intact draining bloody/geri urine. Radial and pedal pulses palp. Rt subclavian CVL noted, NS @ KVO infusing. Refreshments brought to bedside. No further needs. VSS. Non-productive cough heard. Call light in reach, bed in lowest position. Will cont with POC.
--- NOTE | 2018-04-13 21:00 | NUR ---
Pt resting peacefully, PO meds taken without difficulty. VSS. Call light in reach.
[2018-04-13 23:00] VITALS: BP 112/64
--- NOTE | 2018-04-13 23:00 | NUR ---
Pt resting peacefully with no signs of acute distress noted. She is able to reposition herself independently. Call light in reach, bed in lowest position. VSS. WIll cont with POC.
--- NOTE | 2018-04-14 01:00 | NUR ---
Pt had large loose stool. Complete bed bath and linen change provided. Pt tolerated well. VSS. Call light in reach, bed in lowest position. Will cont with POC.
[2018-04-14 03:00] VITALS: BP 123/81
--- NOTE | 2018-04-14 03:00 | NUR ---
CVL dressing change provided via roofing technician. VSS. Pt tolerated well. Call light in reach.
--- NOTE | 2018-04-14 05:00 | NUR ---
Repositioned for comfort, VSS. Call light in reach, pt denies any requests. Will cont with POC.
[2018-04-14 06:38] LABS: BASOPHILS 0 % (0-2); EOSINOPHILS 0.2 % (0-7); HEMOGLOBIN 9.6 g/dL (12-16); IMMATURE GRANULOCYTES 0.7 % (0-5); LYMPHOCYTES 9.3 % (15-50); MCV 96.8 fL (80.0-100.0); MEAN PLATELET VOLUME 10.6 fL (7.4-10.4); MONOCYTES 9.7 % (2-11); NEUTROPHILS 80.1 % (40-80); PLATELET COUNT 463 10x3/uL (130-400); RDW 15.1 % (11.5-14.5); WBC 14.8 10x3/uL (4.8-10.8)
[2018-04-14 06:49] LABS: ALBUMIN 2.6 g/dL (3.4-5.0); ANION GAP 13.2 mmol/L (8-16); BILIRUBIN - TOTAL 0.5 mg/dL (0.2-1.3); CARBON DIOXIDE 26.6 mmol/L (21.0-32.0); CREATININE - SERUM 0.9 mg/dL (0.6-1.3); POTASSIUM - SERUM 4.8 mmol/L (3.5-5.1); PROTEIN - SERUM 5.6 g/dL (6.4-8.2)
[2018-04-14 07:00] VITALS: BP 129/84
--- NOTE | 2018-04-14 09:20 | NUR ---
0700 AWAKE ALERT ASSESSMENT COMPLETE
--- NOTE | 2018-04-14 09:20 | NUR ---
0900 KIM CHANGED OUT TO NEW KIM PER ORDER
--- NOTE | 2018-04-14 09:30 | NUR ---
NUTRITION F/U PT REPORTS SHE IS "EATING ENOUGH". WILL CONTINUE TO PROVIDE DIET, MONITOR INTAKE. RD FOLLOWING
--- NOTE | 2018-04-14 10:54 | NUR ---
0700 AWAKE ALERT SOMEWHAT CONFUSED ASSESSMENT
--- NOTE | 2018-04-14 11:45 | NUR ---
PT TRANSFERRED FROM ICU TO ROOM 2228 AWAKE AND ALERT. NO C/O NOTED AT THIS TIME. AWAKE AND ALERT. C/L IN REACH A BEDSIDE.
[2018-04-14 13:48] VITALS: BP 136/85
--- NOTE | 2018-04-14 16:00 | NUR ---
DR. CLAYTON MADE ROUNDS ON TODAY WANT IV STARTED IN LEFT ARM IF POSSIBLE TO DEACCESS PT. SHE IS NOTED TO HAVING SWOLLEN TO LEFT EXT. NO C/O NOTED OR VOICED. C/L IN REACH AT BEDSIDE.
--- NOTE | 2018-04-14 16:45 | MORECARE ---
CASE MANAGEMENT DISCHARGE SUMMARY PATIENT: RAMON PIERCE UNIT: [id number] ADM DATE: 04/03/18 AGE: 72 : [birth year] SEX: F ROOM/BED: D.2229 AUTHOR: JAVAN,DOC PHYSICIAN: REFERRING PHYSICIAN: BRITTANI ENRIQUEZ MD DATE OF SERVICE: 04/14/18 Discharge Plan Patient Name: RAMON PIERCE Facility: [facility]:[place] : 1945 Planned Disposition: Home Anticipated Discharge Date: Discharge Date: Expected LOS: Initial Reviewer: [email or web address] Initial Review Date: 04/03/2018 Generated: 04/14/18 5:45 pm Comments DCP- Discharge Planning Updated by [email or web address]: Alanis Cavazos on 04/13/18 5:[address] Patient Name: RAMON PIERCE Admission Status: ER Accout number: [id number] Admission Date: 04-03-2018 : 1945 Admission Diagnosis:HEART FAILURE, UNSPECIFIED Attending: BRITTANI ENRIQUEZ Current LOS: 10 Anticipated DC Date: Planned Disposition: Home Primary Insurance: [employer] Discharge Planning Comments: CM met with patient at bedside. Patient states she lives at home with her and plans to return to their home upon discharge. Patient states she may need HH or appraiser personal property upon discharge. She may also need BiPap / Home 02 upon discharge. CM will contact [place] to find out what is required for DME / HH. CM will continue to follow and assist as needed with discharge planning / needs. Founder And President: Alanis Cavazos DCP- Discharge Planning Updated by [email or web address]: Alanis Cavazos on 04/09/18 6:[address] CM attempted to meet with patient regarding discharge planning. Patient is currently on vent and no family available at this time.CM will continue to follow and assist as needed with discharge planning / needs. DCP- Discharge Planning Updated by [email or web address]: Alanis Cavazos on 04/05/18 5:[address] CM CONTACTED [facility] AND LEFT MESSAGE WITH AMANDA POLLACK. CM will continue to follow and assist as needed with discharge planning / needs. DCPIA - Discharge Planning Initial Assessment Updated by [email or web address]: Alanis Cavazos on 04/13/18 6:15 pm * Is the patient Alert and Oriented? Yes * How many steps to enter\exit or inside your home? * PCP Annette Magallanes - [place] [facility] * Preadmission Environment Home with Family * ADLs Independent * Equipment None * List name and contact numbers for known caregivers / representatives who currently or will assist patient after discharge: Daren Pierce - spouse- [phone], * Verbal permission to speak to the caregivers and representatives has been obtained from the patient. Yes * Community resources currently utilized None * Additional services required to return to the preadmission environment? No * Can the patient safely return to the preadmission environment? Yes * Has this patient been hospitalized within the prior 30 days at any hospital? Yes External Providers External Provider: OTHER-OTHER Next Contact Date: Service Request Date: Service Type: Resolution: Reviewer: Comments: Last DP export: 04/13/18 5:28 pm Patient Name: RAMON PIERCE Page 27688 at 1645 All edits/amendments must be made on the electronic document DICTATION DATE: 04/14/181644 SALESPERSON PARTS: EMILY 04/14/181644 RPT#: [id number] DC DATE: STATUS: ADM IN [facility] [address] [place] [address] END OF REPORT
--- NOTE | 2018-04-14 16:53 | MORECARE ---
CASE MANAGEMENT DISCHARGE SUMMARY PATIENT: RAMON PIERCE UNIT: [id number] ADM DATE: 04/03/18 AGE: 72 : [birth year] SEX: F ROOM/BED: D.2229 AUTHOR: JAVAN,DOC PHYSICIAN: REFERRING PHYSICIAN: BRITTANI ENRIQUEZ MD DATE OF SERVICE: 04/14/18 Discharge Plan Patient Name: RAMON PIERCE Facility: [facility]:[place] : 1945 Planned Disposition: Home Anticipated Discharge Date: Discharge Date: Expected LOS: Initial Reviewer: [email or web address] Initial Review Date: 04/03/2018 Generated: 04/14/18 5:53 pm Comments DCP- Discharge Planning Updated by [email or web address]: Jerri Miller on 04/14/18 3:[address] I called the [facility] clinic and spoke with Gera and informed him of need for home oxygen and home health. I faxed clinical and order for home oxygen and home health needs to [phone] per his request. CM will continue to follow and assist with discharge planning/needs. DCP- Discharge Planning Updated by [email or web address]: Alanis Cavazos on 04/13/18 5:[address] Patient Name: RAMON PIERCE Admission Status: ER Accout number: [id number] Admission Date: 04-03-2018 : 1945 Admission Diagnosis:HEART FAILURE, UNSPECIFIED Attending: BRITTANI ENRIQUEZ Current LOS: 10 Anticipated DC Date: Planned Disposition: Home Primary Insurance: [facility] [employer] Discharge Planning Comments: CM met with patient at bedside. Patient states she lives at home with her and plans to return to their home upon discharge. Patient states she may need HH or personal loan specialist upon discharge. She may also need BiPap / Home 02 upon discharge. CM will contact [facility] to find out what is required for DME / HH. CM will continue to follow and assist as needed with discharge planning / needs. Assessment Director: Alanis Cavazos DCP- Discharge Planning Updated by [email or web address]: Alanis Cavazos on 04/09/18 6:[address] CM attempted to meet with patient regarding discharge planning. Patient is currently on vent and no family available at this time.CM will continue to follow and assist as needed with discharge planning / needs. DCP- Discharge Planning Updated by [email or web address]: Alanis Cavazos on 04/05/18 5:[address] CM CONTACTED [facility] EXPID[facility] AND LEFT MESSAGE WITH AMANDA POLLACK. CM will continue to follow and assist as needed with discharge planning / needs. DCPIA - Discharge Planning Initial Assessment Updated by [email or web address]: Alanis Cavazos on 04/13/18 6:15 pm * Is the patient Alert and Oriented? Yes * How many steps to enter\exit or inside your home? * PCP Annette Magallanes - [place] [facility] * [facility] * Preadmission Environment Home with Family * ADLs Independent * Equipment None * List name and contact numbers for known caregivers / representatives who currently or will assist patient after discharge: Daren Pierce - spouse- [phone], * Verbal permission to speak to the caregivers and representatives has been obtained from the patient. Yes * Community resources currently utilized None * Additional services required to return to the preadmission environment? No * Can the patient safely return to the preadmission environment? Yes * Has this patient been hospitalized within the prior 30 days at any hospital? Yes Last DP export: 04/14/18 3:45 pm Patient Name: RAMON PIERCE Page 10769 at 1653 All edits/amendments must be made on the electronic document DICTATION DATE: 04/14/181651 TUGBOAT PILOT: EMILY 04/14/181651 RPT#: [id number] DC DATE: STATUS: ADM IN [facility] [address] [place] [address] END OF REPORT
[2018-04-14 16:58] VITALS: BP 116/52
--- NOTE | 2018-04-14 19:45 | NUR ---
PT LYING IN BED RESTING, NO SIGNS OF DISTRESS. FAMILY AT BEDSIDE. RIGHT SUBCLAVIAN SL. RIGHT ARM SWOLLEN, TENDER TO TOUCH, PROPPED ON PILLOW. KIM DRAINING BLOODY URINE. BED ALARM ON. O2 2L/NC. NO COMPLAINTS OR NEEDS AT THIS TIME. CL IN REACH, WILL CONTINUE TO MONITOR
--- NOTE | 2018-04-14 19:51 | NUR ---
0900 REMOVED KIM AND REINSERTED NEW KIM PER DR MOSQUERA ORDER
[2018-04-14 20:00] VITALS: BP 132/64
[2018-04-15 04:00] VITALS: BP 126/66
--- NOTE | 2018-04-15 05:46 | NUR ---
22G IV SL SITED TO LEFT WRIST X1 ATTEMPT
[2018-04-15 05:51] LABS: BASOPHILS 0 % (0-2); EOSINOPHILS 0.2 % (0-7); HEMATOCRIT 30.4 % (36.0-48.0); HEMOGLOBIN 9.8 g/dL (12-16); IMMATURE GRANULOCYTES 0.4 % (0-5); LYMPHOCYTES 6.6 % (15-50); MCH 31.1 pg (26.0-34.0); MCHC 32.2 g/dL (31.0-37.0); MCV 96.5 fL (80.0-100.0); MEAN PLATELET VOLUME 10.6 fL (7.4-10.4); MONOCYTES 8.1 % (2-11); NEUTROPHILS 84.7 % (40-80); PLATELET COUNT 466 10x3/uL (130-400); RBC 3.15 10x6/uL (4.00-5.40); RDW 15.3 % (11.5-14.5); WBC 17.9 10x3/uL (4.8-10.8)
[2018-04-15 06:13] LABS: ALBUMIN 2.6 g/dL (3.4-5.0); ANION GAP 15.1 mmol/L (8-16); BILIRUBIN - TOTAL 0.67 mg/dL (0.2-1.3); CARBON DIOXIDE 26.4 mmol/L (21.0-32.0); CREATININE - SERUM 1.1 mg/dL (0.6-1.3); POTASSIUM - SERUM 4.5 mmol/L (3.5-5.1); PROTEIN - SERUM 5.8 g/dL (6.4-8.2)
[2018-04-15 08:48] VITALS: BP 140/71
--- NOTE | 2018-04-15 11:54 | EC ---
PATIENT:RAMON PIERCE DATE OF SERVICE: 04/03/18 SEX: F MEDICAL RECORD: [id number] DATE OF : [birth year] LOCATION:D.MS [facility] AGE OF PATIENT: 72 ADMISSION DATE: 04/03/18 REFERRING PHYSICIAN: INTERPRETING PHYSICIAN: LIDYA DOUGLASS MD ECHOCARDIOGRAM REPORT ECHO CHARGES 4 ECHO COMPLETE Date: 04/09/18 CLINICAL DIAGNOSIS: STUNNED MYOCARDIUM/MYOCARDITIS ECHOCARDIOGRAPHIC MEASUREMENTS (adult normal given) AC root (d.<3.7cm) 3.4 cm LV Septum d (<1.2 cm> 1.1 cm Valve Excursion 1.6 cm LV Septum (systole) 1.3 cm Left Atria (s.<4.0cm> 4.5 cm LVPW d(<1.2cm) 1.1 cm RV (d.<2.3cm) 4.4 cm LVPW (sytole) 1.4 cm LV diastole(<5.6CM) 5.9 cm MV E-F(>70mm/sec) cm LV systole 5.2 cm LVOT Diameter 1.8 cm MV exc.(>10mm) 1.4 cm Est.ejection fraction (50-75%) % DOPPLER: LVIT cm/sec A 80.0 cm/sec E 124 cm/sec LA cm/sec RVSP 51 mmHg LVOT 103 cm/sec AOP1/2T m/s Asc. Ao 133 cm/sec RVOT 41 cm/sec RA cm/sec PA 96 cm/sec AV Gradient Peak 7.04 mmHg AV Mean 3.09 mmHg AV Area 2.4 cm MV Gradient Peak 6.90 mmHg MV Mean 2.48 mmHg MV Area cm COMMENTS: Full Roll Inspector: Ventura RACHEL Service Writer: 1 Dr. Douglass TAPE# PACS Pericardial Effusion N DATE OF SERVICE: 04/12/2018 ECHOCARDIOGRAM DATE OF SERVICE: 04/12/2018 FINDINGS: 1. Left ventricular chamber size is dilated. Left ventricular systolic function is markedly reduced. Overall ejection fraction in the 20-25% range. 2. Left atrium is enlarged at 4.5 cm. Right atrium and right ventricular ECHOCARDIOGRAM REPORT [id number] RAMON PIERCE chamber sizes are as well mildly dilated. 3. Valvular structures have normal structure and motion. 4. Doppler interrogation reveals xgtw-gb-vnqldjwh mitral regurgitation, moej-eg-pndhyuyd tricuspid regurgitation. No other valvular insufficiency or stenosis. Pulmonary systolic pressure is estimated at 51 mmHg. 5. No evidence of pericardial effusion or left ventricular thrombus. TRANSINT:[id number] Voice Confirmation ID: [id number] DOCUMENT ID: [id number] LIDYA DOUGLASS MD at 1154 CC: [id number] DICTATION DATE: 04/12/18 1143 INSTRUCTIONAL AIDE: 04/12/18 1259 ADM IN [facility] [id number] [place] [address]
--- NOTE | 2018-04-15 12:30 | NUR ---
CENTRAL LINE REMOVED. TIP INTACT. MEASURED AT 15CM LONG. NO COMPLICATIONS. WILL CONTINUE TO MONITOR.
[2018-04-15 13:01] VITALS: BP 132/75
[2018-04-15 16:47] VITALS: BP 109/62
[2018-04-15 21:16] VITALS: BP 114/67
[2018-04-16 00:24] VITALS: BP 113/57
--- NOTE | 2018-04-16 03:00 | NUR ---
FOUND PT IN FLOOR. STATED SHE TRIED TO GET UP BUT SLID OFF BED INTO FLOOR. NO SIGNS OR SYMPTOMS OF INJURY. WAS ASSESSED BY PRIOR SHIFTS TO BE A FALL RISK. NO LUCILA MAT OR BED ALARM INITIATED. ALL MEASURES INTACT NOW. WILL CONTINUE TO MONITOR.
[2018-04-16 04:19] VITALS: BP 124/69
[2018-04-16 08:01] LABS: ALBUMIN 2.4 g/dL (3.4-5.0); ANION GAP 10.6 mmol/L (8-16); BILIRUBIN - TOTAL 0.63 mg/dL (0.2-1.3); CALCIUM 7.5 mg/dL (8.5-10.1); CARBON DIOXIDE 29.9 mmol/L (21.0-32.0); PROTEIN - SERUM 5.1 g/dL (6.4-8.2)
[2018-04-16 08:02] LABS: POTASSIUM - SERUM 3.5 mmol/L (3.5-5.1)
[2018-04-16 08:54] VITALS: BP 124/68
[2018-04-16 09:07] LABS: BASOPHILS 0.1 % (0-2); EOSINOPHILS 0.2 % (0-7); HEMATOCRIT 28.1 % (36.0-48.0); HEMOGLOBIN 9.3 g/dL (12-16); IMMATURE GRANULOCYTES 0.6 % (0-5); LYMPHOCYTES 3.3 % (15-50); MCH 31.7 pg (26.0-34.0); MCHC 33.1 g/dL (31.0-37.0); MCV 95.9 fL (80.0-100.0); MEAN PLATELET VOLUME 10.6 fL (7.4-10.4); MONOCYTES 8.2 % (2-11); NEUTROPHILS 87.6 % (40-80); PLATELET COUNT 431 10x3/uL (130-400); RBC 2.93 10x6/uL (4.00-5.40); RDW 15.2 % (11.5-14.5); WBC 19.1 10x3/uL (4.8-10.8)
--- NOTE | 2018-04-16 09:59 | NUR ---
Rehab Prescreening Consult recieved and the chart has been reviewed. She is a [facility] patient and therefore does not have a payor source for acute rehab at [facility]. Recommend a referral to the [place] rehab. Discussed with the TUTU Mishra RN Clinical Liaison, Rehab
--- NOTE | 2018-04-16 10:12 | NUR ---
ALERT WITH INTERMITTANT CONFUSION. HRRR AND DENIES ANY PAIN OR DISCOMFORT. HAD SMALL DARK BLACK BM WITH PERICARE DONE WITH LANASEPTIC APPLIED TO REDNESS OF BUTTOCK. ENCOURAGED TO USE CALL LIGHT FOR ASSIST WITH FALL PRECAUTIONS IN PLACE.KIM CATH INTACT
[2018-04-16 12:53] VITALS: BP 115/60
[2018-04-16 17:19] VITALS: BP 148/64
[2018-04-16 19:00] VITALS: BP 131/90
--- NOTE | 2018-04-16 19:00 | NUR ---
PT IN BED IN LOW FOWLERS POSITION. RESPIRATIONS EVEN AND UNLABORED. VS STABLE AND AFEBRILE. NO VISUAL CUES OF DISTRESS NOTED. WILL CONTINUE TO MONITOR.
[2018-04-17] VITALS: BP 129/76
[2018-04-17 03:00] VITALS: BP 121/68
--- NOTE | 2018-04-17 07:30 | NUR ---
REC'D IN BED AWAKE AND ALERT. RESP EVEN AND UNLABORED WITH NO DISTRESS NOTED. CAN EXPRESS NEEDS AND WANTS. NO C/O NOTED OR VOICED. ASSESSMENT COMPLETED. C/L IN REACH AT BEDSIDE.
[2018-04-17 07:32] LABS: BASOPHILS 0.1 % (0-2); EOSINOPHILS 0.8 % (0-7); HEMATOCRIT 28.3 % (36.0-48.0); HEMOGLOBIN 9.3 g/dL (12-16); IMMATURE GRANULOCYTES 0.5 % (0-5); LYMPHOCYTES 5.5 % (15-50); MCH 31.5 pg (26.0-34.0); MCHC 32.9 g/dL (31.0-37.0); MCV 95.9 fL (80.0-100.0); MEAN PLATELET VOLUME 10.4 fL (7.4-10.4); MONOCYTES 9.5 % (2-11); NEUTROPHILS 83.6 % (40-80); PLATELET COUNT 410 10x3/uL (130-400); RBC 2.95 10x6/uL (4.00-5.40); RDW 15.3 % (11.5-14.5); WBC 15.9 10x3/uL (4.8-10.8)
[2018-04-17 07:49] LABS: ALBUMIN 2.4 g/dL (3.4-5.0); ALKALINE PHOSPHATASE 61 U/L (46-116); ALT (SGPT) 104 U/L (10-68); BILIRUBIN - TOTAL 0.72 mg/dL (0.2-1.3); CALC OSMOLALITY 279 mosm/kg (275-300); CALCIUM 7.8 mg/dL (8.5-10.1); CARBON DIOXIDE 28.3 mmol/L (21.0-32.0); CHLORIDE - SERUM 102 mmol/L (98-107); CREATININE - SERUM 0.8 mg/dL (0.6-1.3); GLUCOSE 88 mg/dL (74-106); POTASSIUM - SERUM 3.5 mmol/L (3.5-5.1); PROTEIN - SERUM 5.8 g/dL (6.4-8.2); SODIUM 140 mmol/L (136-145); UREA NITROGEN 17 mg/dL (7-18); eGFR NON AFRICAN AMERICAN 75 mL/min (90-120)
[2018-04-17 09:50] VITALS: BP 119/64
[2018-04-17 13:29] VITALS: BP 123/72
[2018-04-17 16:21] VITALS: BP 116/54
--- NOTE | 2018-04-17 17:00 | NUR ---
I have reviewed this patient and I concur with the Shift Assessment completed by the Licensed Practical Nurse today this shift.
[2018-04-17 20:00] VITALS: BP 145/70
[2018-04-18] VITALS: BP 120/70
[2018-04-18 04:00] VITALS: BP 134/77
--- NOTE | 2018-04-18 05:32 | NUR ---
REQUESTING SHOWER ONLY, REFUSED BED BATH, INFORMED PT SHE IS TO GET UP WITH PT PER DOCTORS NOTE
[2018-04-18 06:04] LABS: ALBUMIN 2.3 g/dL (3.4-5.0); ALKALINE PHOSPHATASE 57 U/L (46-116); ALT (SGPT) 89 U/L (10-68); BILIRUBIN - TOTAL 0.53 mg/dL (0.2-1.3); CALC OSMOLALITY 279 mosm/kg (275-300); CALCIUM 7.3 mg/dL (8.5-10.1); CARBON DIOXIDE 28.9 mmol/L (21.0-32.0); CHLORIDE - SERUM 101 mmol/L (98-107); CREATININE - SERUM 0.8 mg/dL (0.6-1.3); GLUCOSE 90 mg/dL (74-106); PROTEIN - SERUM 5.5 g/dL (6.4-8.2); SODIUM 140 mmol/L (136-145); UREA NITROGEN 14 mg/dL (7-18); eGFR NON AFRICAN AMERICAN 75 mL/min (90-120)
[2018-04-18 06:09] LABS: BASOPHILS 0.1 % (0-2); HEMATOCRIT 26.5 % (36.0-48.0); HEMOGLOBIN 8.6 g/dL (12-16); IMMATURE GRANULOCYTES 0.6 % (0-5); MCH 31.3 pg (26.0-34.0); MCHC 32.5 g/dL (31.0-37.0); MCV 96.4 fL (80.0-100.0); MEAN PLATELET VOLUME 10.4 fL (7.4-10.4); MONOCYTES 10.8 % (2-11); NEUTROPHILS 80.5 % (40-80); PLATELET COUNT 406 10x3/uL (130-400); RBC 2.75 10x6/uL (4.00-5.40); RDW 15.7 % (11.5-14.5); WBC 12.5 10x3/uL (4.8-10.8)
[2018-04-18 08:30] VITALS: BP 129/78
--- NOTE | 2018-04-18 10:30 | NUR ---
PT REC'D SHOWER ON THIS AM AND LINEN CHANGED. AT BEDSIDE. C/L IN REACH.
[2018-04-18 12:43] VITALS: BP 126/75
[2018-04-18 16:36] VITALS: BP 121/69
--- NOTE | 2018-04-18 16:50 | NUR ---
I have reviewed this patient and I concur with the Shift Assessment completed by the Licensed Practical Nurse today this shift.
--- NOTE | 2018-04-18 19:15 | NUR ---
RECEIVED REPORT, ASSUMED CARE, DENIES NEEDS, CALL LIGHT IN REACH, LUCILA BED ALARM ON, BED LOWEST POSITION, KIM TO GRAVITY, FAMILY AT BEDSIDE, WILL CONTINUE TO MONITOR
[2018-04-18 20:38] VITALS: BP 131/71
[2018-04-19 00:42] VITALS: BP 126/67
--- NOTE | 2018-04-19 01:46 | NUR ---
I have reviewed this patient and I concur with the Shift Assessment completed by the Licensed Practical Nurse today this shift.
[2018-04-19 04:51] LABS: BASOPHILS 0 % (0-2); EOSINOPHILS 1.5 % (0-7); HEMATOCRIT 27.1 % (36.0-48.0); HEMOGLOBIN 8.7 g/dL (12-16); IMMATURE GRANULOCYTES 0.5 % (0-5); LYMPHOCYTES 8.7 % (15-50); MCH 31.2 pg (26.0-34.0); MCHC 32.1 g/dL (31.0-37.0); MCV 97.1 fL (80.0-100.0); MONOCYTES 12.6 % (2-11); NEUTROPHILS 76.7 % (40-80); PLATELET COUNT 345 10x3/uL (130-400); RBC 2.79 10x6/uL (4.00-5.40); RDW 15.8 % (11.5-14.5); WBC 10.2 10x3/uL (4.8-10.8)
[2018-04-19 05:07] VITALS: BP 101/57
[2018-04-19 05:13] LABS: ALBUMIN 2.3 g/dL (3.4-5.0); ALKALINE PHOSPHATASE 57 U/L (46-116); ALT (SGPT) 85 U/L (10-68); CALC OSMOLALITY 278 mosm/kg (275-300); CALCIUM 7.1 mg/dL (8.5-10.1); CARBON DIOXIDE 31.2 mmol/L (21.0-32.0); CHLORIDE - SERUM 99 mmol/L (98-107); CREATININE - SERUM 0.8 mg/dL (0.6-1.3); GLUCOSE 92 mg/dL (74-106); PROTEIN - SERUM 5.6 g/dL (6.4-8.2); SODIUM 139 mmol/L (136-145); UREA NITROGEN 15 mg/dL (7-18); eGFR NON AFRICAN AMERICAN 75 mL/min (90-120)
[2018-04-19 05:14] LABS: POTASSIUM - SERUM 2.9 mmol/L (3.5-5.1)
--- NOTE | 2018-04-19 05:18 | NUR ---
RECEIVED CALL FROM [facility] CRITICAL K+ OF 2.9 START ELECTROLYTE REPLACEMENT. K+ AT 0500, 0700, AND 0900 AND ORDERED RECHECK
[2018-04-19 08:20] VITALS: BP 129/83
[2018-04-19 12:13] LABS: FUNGUS CULTURE RESULT 1 Candida albicans (()); FUNGUS MYCOLOGY CULTURE Preliminary report (())
[2018-04-19 12:30] VITALS: BP 121/76
--- NOTE | 2018-04-19 16:59 | NUR ---
OT NOTE: PT COMPLETED BED MOB TASKS WITH MIN A. THANK YOU, IVY GRIDER
[2018-04-19 19:12] VITALS: BP 125/71
--- NOTE | 2018-04-19 20:00 | NUR ---
RESTING IN BED RESP ALERT AND ORIENTIATED DENIES PAIN OR NEEDS AT THIS TIME, CALL LIGHT IN REACH
[2018-04-20 04:00] VITALS: BP 144/66
[2018-04-20 06:54] LABS: BASOPHILS 0.1 % (0-2); EOSINOPHILS 0.5 % (0-7); HEMOGLOBIN 9.3 g/dL (12-16); IMMATURE GRANULOCYTES 0.5 % (0-5); LYMPHOCYTES 9.3 % (15-50); MCH 31.3 pg (26.0-34.0); MCHC 32.1 g/dL (31.0-37.0); MCV 97.6 fL (80.0-100.0); MEAN PLATELET VOLUME 10.8 fL (7.4-10.4); MONOCYTES 10.3 % (2-11); NEUTROPHILS 79.3 % (40-80); PLATELET COUNT 366 10x3/uL (130-400); RBC 2.97 10x6/uL (4.00-5.40); RDW 16.3 % (11.5-14.5)
[2018-04-20 07:21] LABS: ALBUMIN 2.5 g/dL (3.4-5.0); ANION GAP 12.8 mmol/L (8-16); BILIRUBIN - TOTAL 0.61 mg/dL (0.2-1.3); CALCIUM 7.6 mg/dL (8.5-10.1); CARBON DIOXIDE 29.8 mmol/L (21.0-32.0); POTASSIUM - SERUM 4.6 mmol/L (3.5-5.1)
[2018-04-20 07:28] LABS: CREATININE - SERUM 1.1 mg/dL (0.6-1.3); MAGNESIUM - SERUM 1.9 mg/dL (1.8-2.4)
--- NOTE | 2018-04-20 07:45 | NUR ---
PATIENT IN BED WITH NO COMPLAINTS OR SIGNS OF DISTRESS. IV INTACT. NO COMPLAINTS. FAMILY AT BEDSIDE. CALL LIGHT WITHIN REACH.
[2018-04-20 09:06] VITALS: BP 147/87
--- NOTE | 2018-04-20 11:00 | NUR ---
PATIENT UP TO TAKE A SHOWER. AMBULATING WITH PT. CLERK GENERAL AT BEDSIDE.
--- NOTE | 2018-04-20 12:01 | MORECARE ---
CASE MANAGEMENT DISCHARGE SUMMARY PATIENT: RAMON PIERCE UNIT: [id number] ADM DATE: 04/03/18 AGE: 72 : [birth year] SEX: F ROOM/BED: D.2229 AUTHOR: JAVAN,DOC PHYSICIAN: REFERRING PHYSICIAN: BRITTANI ENRIQUEZ MD DATE OF SERVICE: 04/20/18 Discharge Plan Patient Name: RAMON PIERCE Facility: [facility]:[place] : 1945 Planned Disposition: Home Anticipated Discharge Date: Discharge Date: Expected LOS: Initial Reviewer: [email or web address] Initial Review Date: 04/03/2018 Generated: 04/20/18 1:01 pm Comments DCP- Discharge Planning Updated by [email or web address]: Jerri Miller on 04/20/18 10:[address] Met with patient, she is alone in the room. I informed her that the physician had ordered a rehab screen and [facility] would need [facility] [place]. Patient states she does not want to go to rehab. States her will be available to help her at home. States she may need home health for strengthening. I called a spoke to Nora at the OR in [place]. She states she will call the patient's nurse and have them call me. CM will continue to follow and assist with discharge planning/needs. DCP- Discharge Planning Updated by [email or web address]: Jerri Miller on 04/14/18 2:[address] I called the [facility] clinic and spoke with Gera and informed him of need for home oxygen and home health. I faxed clinical and order for home oxygen and home health needs to [phone] per his request. CM will continue to follow and assist with discharge planning/needs. DCP- Discharge Planning Updated by [id number]: Alanis Cavazos on 04/13/18 4:[address] Patient Name: RAMON PIERCE Admission Status: ER Accout number: [id number] Admission Date: 04-03-2018 : 1945 Admission Diagnosis:HEART FAILURE, UNSPECIFIED Attending: BRITTANI ENRIQUEZ Current LOS: 10 Anticipated DC Date: Planned Disposition: Home Primary Insurance: [employer] Discharge Planning Comments: CM met with patient at bedside. Patient states she lives at home with her and plans to return to their home upon discharge. Patient states she may need HH or personal investment adviser upon discharge. She may also need BiPap / Home 02 upon discharge. [facility] contact [facility] to find [facility] is required for DME / HH. CM will continue to follow and assist as needed with discharge planning / needs. Slash Trimmer: Alanis Cavazos DCP- Discharge Planning Updated by [email or web address]: Alanis Cavazos on 04/09/18 5:[address] CM attempted to meet with patient regarding discharge planning. Patient is currently on vent and no family available at this time.CM will continue to follow and assist as needed with discharge planning / needs. DCP- Discharge Planning Updated by [email or web address]: Alanis Cavazos on 04/05/18 4:[address] CM CONTACTED [facility] EXPIDIT[facility] AND LEFT MESSAGE WITH AMANDA POLLACK. CM will continue to follow and assist as needed with discharge planning / needs. DCPIA - Discharge Planning Initial Assessment Updated by [email or web address]: Alanis Cavazos on 04/13/18 6:15 pm * Is the patient Alert and Oriented? Yes * How many steps to enter\exit or inside your home? * PCP Annette Magallanes - [place] [facility] * [facility] * Preadmission Environment Home with Family * ADLs Independent * Equipment None * List name and contact numbers for known caregivers / representatives who currently or will assist patient after discharge: Daren Pierce - spouse- [phone], * Verbal permission to speak to the caregivers and representatives has been obtained from the patient. Yes * Community resources currently utilized None * Additional services required to return to the preadmission environment? No * Can the patient safely return to the preadmission environment? Yes * Has this patient been hospitalized within the prior 30 days at any hospital? Yes Last DP export: 04/14/18 2:53 pm Patient Name: RAMON PIERCE Page [id number] at 1201 All edits/amendments must be made on the electronic document DICTATION DATE: 04/20/18 1200 LOGISTICS SUPPORT: EMILY 04/20/18 1200 RPT#: [id number] DC DATE: STATUS: ADM IN [facility] [address] [place] [address] END OF REPORT
--- NOTE | 2018-04-20 15:01 | MORECARE ---
CASE MANAGEMENT DISCHARGE SUMMARY PATIENT: RAMON PIERCE UNIT: [id number] ADM DATE: 04/03/18 AGE: 72 : [birth year] SEX: F ROOM/BED: D.2229 AUTHOR: JAVAN,DOC PHYSICIAN: REFERRING PHYSICIAN: BRITTANI ENRIQUEZ MD DATE OF SERVICE: 04/20/18 Discharge Plan Patient Name: RAMON PIERCE Facility: [facility]:[place] : 1945 Planned Disposition: Home Anticipated Discharge Date: Discharge Date: Expected LOS: Initial Reviewer: [email or web address] Initial Review Date: 04/03/2018 Generated: 04/20/18 4:01 pm Comments DCP- Discharge Planning Updated by [email or web address]: Jerri Miller on 04/20/18 1:[address] Patient's spoke to me about discharge planning. I informed him that she would not be able to go to inpatient rehab here, but the [place] rehab was an option. He states she is not wanting to go to a rehab facility at this time. states he is looking into private care givers. I called Gera at [facility] [place] [facility] to inquire about oxygen and home health. He states the patient has a office visit scheduled for Thursday to see Dr. Avalos. I informed Gera that she was ready for discharge and asked if the oxygen or home health was approved and he said they would call me when approved. CM will continue to follow and assist with discharge planning/needs. DCP- Discharge Planning Updated by [email or web address]: Jerri Miller on 04/20/18 10:[address] Met with patient, she is alone in the room. I informed her that the physician had ordered a rehab screen and [facility] would need [facility]. Patient states she does not want to go to rehab. States her will be available to help her at home. States she may need home health for strengthening. I called a chrissy to Nora at the [place] in [place]. She states she will call the patient's nurse and have them call me. CM will continue to follow and assist with discharge planning/needs. DCP- Discharge Planning Updated by [email or web address]: Jerri Miller on 04/14/18 2:[address] I called the [facility] clinic and spoke with Gera and informed him of need for home oxygen and home health. I faxed clinical and order for home oxygen and home health needs to [phone] per his request. CM will continue to follow and assist with discharge planning/needs. DCP- Discharge Planning Updated by [email or web address]: Alanis Cavazos on 04/13/18 4:[address] Patient Name: RAMON PIERCE Admission Status: ER Accout number: [id number] Admission Date: 04-03-2018 : 1945 Admission Diagnosis:HEART FAILURE, UNSPECIFIED Attending: BRITTANI ENRIQUEZ Current LOS: 10 Anticipated DC Date: Planned Disposition: Home Primary Insurance: [facility] Discharge Planning Comments: CM met with patient at bedside. Patient states she lives at home with her and plans to return to their home upon discharge. Patient states she may need HH or personal lines account executive upon discharge. She may also need BiPap / Home 02 upon discharge. CM will contact [place] to find out what is required for DME / HH. CM will continue to follow and assist as needed with discharge planning / needs. Quality Review Specialist: Alanis Cavazos DCP- Discharge Planning Updated by [email or web address]: Alanis Cavazos on 04/09/18 5:[address] CM attempted to meet with patient regarding discharge planning. Patient is currently on vent and no family available at this time.CM will continue to follow and assist as needed with discharge planning / needs. DCP- Discharge Planning Updated by [id number]: Alanis Cavazos on 04/05/18 4:[address] CM CONTACTED [facility] EXPIDITOR AND LEFT MESSAGE WITH AMANDA POLLACK. CM will continue to follow and assist as needed with discharge planning / needs. DCPIA - Discharge Planning Initial Assessment Updated by [id number]: Alanis Cavazos on 04/13/18 6:15 pm * Is the patient Alert and Oriented? Yes * How many steps to enter\exit or inside your home? * PCP Annette Magallanes - [place] [facility] * Preadmission Environment Home with Family * ADLs Independent * Equipment None * List name and contact numbers for known caregivers / representatives who currently or will assist patient after discharge: Daern Pierce - spouse- [phone], * Verbal permission to speak to the caregivers and representatives has been obtained from the patient. Yes * Community resources currently utilized None * Additional services required to return to the preadmission environment? No * Can the patient safely return to the preadmission environment? Yes * Has this patient been hospitalized within the prior 30 days at any hospital? Yes Last DP export: 04/20/18 11:01 a Patient Name: RAMON PIERCE Page 52279 at 1501 All edits/amendments must be made on the electronic document DICTATION DATE: 04/20/18 1500 TAILER OUT: EMILY 04/20/18 1500 RPT#: [id number] DC DATE: STATUS: ADM IN [facility] [address] [place] [address] END OF REPORT
[2018-04-20 15:12] VITALS: BP 95/63
--- NOTE | 2018-04-20 16:31 | NUR ---
OT NOTE: PT COMPLETED BED MOB SPV. PT COMPLETED EOB SITTING WITH CGA. PT REQUIRED REST BREAKS. PT COMPLETED HYGIENE WITH SET UP. THANK YOU, IVY GRIDER
--- NOTE | 2018-04-20 16:58 | NUR ---
OT NOTE: BED MOB WITH SBA; ABLE TO AMB IN ROOM WITH MIN A AND USE OF RW. TOILET TRANSFERS AND TOILETING WITH MIN ASSIST; TRANSFER TO SHOWER BENCH WITH MIN ASSIST. ABLE TO JERROD SOCKS WITH SET UP AND EXT TIME. PT REQUIRED REST BREAKS FOLLOWING EACH TASK DUE TO SOB. DEMARIO MELTON, OTR/L
[2018-04-20 17:36] VITALS: BP 109/63
--- NOTE | 2018-04-20 18:50 | NUR ---
PATIENT IN BED WITH NO COMPLAINTS OR SIGNS OF DISTRESS. IV INTACT. FAMILY AT BEDSIDE. CALL LIGHT WITHIN REACH.
[2018-04-20 20:00] VITALS: BP 130/66
--- NOTE | 2018-04-20 20:00 | NUR ---
RESTING IN BED, NO APPARENT DISTRESS, CALL LIGHT IN REACH, SEE SHIFT ASSESSMENT
[2018-04-21 04:00] VITALS: BP 110/70
[2018-04-21 05:46] LABS: ALBUMIN 2.4 g/dL (3.4-5.0); ANION GAP 12.9 mmol/L (8-16); BILIRUBIN - TOTAL 0.47 mg/dL (0.2-1.3); CALCIUM 7.5 mg/dL (8.5-10.1); CREATININE - SERUM 1.1 mg/dL (0.6-1.3); PROTEIN - SERUM 5.7 g/dL (6.4-8.2)
[2018-04-21 05:51] LABS: POTASSIUM - SERUM 3.9 mmol/L (3.5-5.1)
[2018-04-21 06:00] LABS: BASOPHILS 0.1 % (0-2); EOSINOPHILS 0.5 % (0-7); HEMATOCRIT 26.8 % (36.0-48.0); HEMOGLOBIN 8.8 g/dL (12-16); IMMATURE GRANULOCYTES 0.4 % (0-5); LYMPHOCYTES 7.1 % (15-50); MCH 31.3 pg (26.0-34.0); MCHC 32.8 g/dL (31.0-37.0); MCV 95.4 fL (80.0-100.0); MEAN PLATELET VOLUME 10.9 fL (7.4-10.4); MONOCYTES 9.3 % (2-11); NEUTROPHILS 82.6 % (40-80); PLATELET COUNT 358 10x3/uL (130-400); RBC 2.81 10x6/uL (4.00-5.40); RDW 16.2 % (11.5-14.5)
--- NOTE | 2018-04-21 07:30 | NUR ---
MORNING ASSESSMENT COMPLETE. SEE ASSESSMENT FLOWSHEET FOR FURTHER DETAILS. PT LYING IN BED AAO X4 TO PERSON, PLACE, TIME, AND SITUATION. DENIES NEEDS AT THIS TIME. CL IN REACH.
[2018-04-21 09:43] VITALS: BP 137/64
[2018-04-21 12:35] VITALS: BP 134/77
--- NOTE | 2018-04-21 14:48 | NUR ---
NUTRITION F/U PT TOLERATING AHA DIET. 50 TO 75% INTAKE RECENT MEALS. WILL CONTINUE TO PROVIDE DIET, ENCOURAGE PO INTAKE. RD FOLLOWING
--- NOTE | 2018-04-21 15:38 | MORECARE ---
CASE MANAGEMENT DISCHARGE SUMMARY PATIENT: RAMON PIERCE UNIT: [id number] ADM DATE: 04/03/18 AGE: 72 : 47 SEX: F ROOM/BED: D.2229 AUTHOR: JAVAN,DOC PHYSICIAN: REFERRING PHYSICIAN: BRITTANI ENRIQUEZ MD DATE OF SERVICE: 04/21/18 Discharge Plan Patient Name: RAMON PIERCE Facility: [facility]:[place] : 1945 Planned Disposition: Home Anticipated Discharge Date: Discharge Date: Expected LOS: Initial Reviewer: [email or web address] Initial Review Date: 04/03/2018 Generated: 04/21/18 4:38 pm Comments DCP- Discharge Planning Updated by [email or web address]: Jerri Miller on 04/20/18 1:[address] Patient's spoke to me about discharge planning. I informed him that she would not be able to go to inpatient rehab here, but the [place] re[facility] was an option. He states she is not wanting to go to a rehab facility at this time. states he is looking into private care givers. I called Gera at [facility] to inquire about oxygen and home health. He states the patient has a office visit scheduled for Thursday to see Dr. Avalos. I informed Gera that she was ready for discharge and asked if the oxygen or home health was approved and he said they would call me when approved. CM will continue to follow and assist with discharge planning/needs. DCP- Discharge Planning Updated by [email or web address]: Jerri Miller on 04/20/18 10:[address] Met with patient, she is alone in the room. I informed her that the physician had ordered a rehab screen and [facility] Patient states she does not want to go to rehab. States her will be available to help her at home. States she may need home health for strengthening. I called a chrissy to Nora at the [facility] in [place]. She states she will call the patient's nurse and have them call me. CM will continue to follow and assist with discharge planning/needs. DCP- Discharge Planning Updated by [email or web address]: Jerri Miller on 04/14/18 2:[address] I called the [facility] clinic and spoke with Gera and informed him of need for home oxygen and home health. I faxed clinical and order for home oxygen and home health needs to [phone] per his request. CM will continue to follow and assist with discharge planning/needs. DCP- Discharge Planning Updated by [email or web address]: Alanis Cavazos on 04/13/18 4:[address] Patient Name: RAMON PIERCE Admission Status: ER Accout number: [id number] Admission Date: 04-03-2018 : 1945 Admission Diagnosis:HEART FAILURE, UNSPECIFIED Attending: BRITTANI ENRIQUEZ Current LOS: 10 Anticipated DC Date: Planned Disposition: Home Primary Insurance: [facility] Discharge Planning Comments: CM met with patient at bedside. Patient states she lives at home with her and plans to return to their home upon discharge. Patient states she may need HH or certified personal trainer upon discharge. She may also need BiPap / Home 02 upon discharge. CM will contact [facility] to find out what is required for DME / HH. CM will continue to follow and assist as needed with discharge planning / needs. Systems Integrator: Alanis Cavazos DCP- Discharge Planning Updated by [email or web address]: Alanis Cavazos on 04/09/18 5:[address] CM attempted to meet with patient regarding discharge planning. Patient is currently on vent and no family available at this time.CM will continue to follow and assist as needed with discharge planning / needs. DCP- Discharge Planning Updated by [email or web address]: Alanis Cavazos on 04/05/18 4:[address] CM CONTACTED VA EXPIDITOR AND LEFT MESSAGE WITH AMANDA POLLACK. CM will continue to follow and assist as needed with discharge planning / needs. DCPIA - Discharge Planning Initial Assessment Updated by [id number]: Alanis Cavazos on 04/13/18 6:15 pm * Is the patient Alert and Oriented? Yes * How many steps to enter\exit or inside your home? * PCP [facility] * Preadmission Environment Home with Family * ADLs Independent * Equipment None * List name and contact numbers for known caregivers / representatives who currently or will assist patient after discharge: Daren Pierce - spouse- [phone], * Verbal permission to speak to the caregivers and representatives has been obtained from the patient. Yes * Community resources currently utilized None * Additional services required to return to the preadmission environment? No * Can the patient safely return to the preadmission environment? Yes * Has this patient been hospitalized within the prior 30 days at any hospital? Yes External Providers External Provider: [facility] Next Contact Date: Service Request Date: Service Type: Resolution: Reviewer: Comments: Last DP export: 04/20/18 2:01 p Patient Name: RAMON PIERCE Page 63375 at 1538 All edits/amendments must be made on the electronic document DICTATION DATE: 04/21/181536 WHEEL TRUING MACHINE TENDER: EMILY 04/21/181536 RPT#: [id number] DC DATE: STATUS: ADM IN [facility] [address] [place] [address] END OF REPORT
[2018-04-21 16:28] VITALS: BP 119/74
[2018-04-21 17:55] LABS: APPEARANCE HAZY (CLEAR); COLOR YELLOW (YELLOW)
[2018-04-21 17:56] LABS: BILIRUBIN NEGATIVE (NEGATIVE); GLUCOSE NEGATIVE (NEGATIVE); KETONE NEGATIVE (NEGATIVE); NITRITE NEGATIVE (NEGATIVE); PROTEIN TRACE mg/dL (NEGATIVE); UROBILINOGEN NORMAL (NORMAL)
[2018-04-21 17:57] LABS: BACTERIA MANY /hpf (NONE SEEN); EPITHELIAL CELLS 0-5 /hpf (0-5); RED CELLS - URINE 25-50 /hpf (0-5)
[2018-04-21 22:36] VITALS: BP 133/70
[2018-04-22 04:48] VITALS: BP 124/68
[2018-04-22 04:56] LABS: BASOPHILS 0.2 % (0-2); EOSINOPHILS 0.4 % (0-7); HEMOGLOBIN 9.2 g/dL (12-16); IMMATURE GRANULOCYTES 0.5 % (0-5); LYMPHOCYTES 5.5 % (15-50); MCH 31.3 pg (26.0-34.0); MCHC 32.9 g/dL (31.0-37.0); MCV 95.2 fL (80.0-100.0); MONOCYTES 8.7 % (2-11); NEUTROPHILS 84.7 % (40-80); PLATELET COUNT 359 10x3/uL (130-400); RBC 2.94 10x6/uL (4.00-5.40); RDW 16.3 % (11.5-14.5); WBC 12.1 10x3/uL (4.8-10.8)
[2018-04-22 05:06] LABS: ALBUMIN 2.6 g/dL (3.4-5.0); BILIRUBIN - TOTAL 0.53 mg/dL (0.2-1.3); CALCIUM 7.6 mg/dL (8.5-10.1); CARBON DIOXIDE 28.1 mmol/L (21.0-32.0); CREATININE - SERUM 1.2 mg/dL (0.6-1.3); POTASSIUM - SERUM 4.1 mmol/L (3.5-5.1); PROTEIN - SERUM 5.7 g/dL (6.4-8.2)
--- NOTE | 2018-04-22 08:00 | NUR ---
The patient is awake and alert, she is pleasant. She says she had a rough night and does not feel well. She does have edema to her bilateral feet. Denies needs at this time.
[2018-04-22 09:25] VITALS: BP 132/74
--- NOTE | 2018-04-22 09:30 | NUR ---
RECIEVED REPORT FROM MARIA ELENA BOSE RN. PT LYING IN BED AAO X4 TO PERSON, PLACE, TIME, AND SITUATION. ATTILA NEEDS AT THIS TIME. CL IN REACH.
[2018-04-22 13:13] VITALS: BP 138/72
--- NOTE | 2018-04-22 14:11 | MORECARE ---
CASE MANAGEMENT DISCHARGE SUMMARY PATIENT: RAMON PIERCE UNIT: [id number] ADM DATE: 04/03/18 AGE: 72 : 47 SEX: F ROOM/BED: D.2229 AUTHOR: JAVAN,DOC PHYSICIAN: REFERRING PHYSICIAN: BRITTANI ENRIQUEZ MD DATE OF SERVICE: 04/22/18 Discharge Plan Patient Name: RAMON PIERCE Facility: [facility]:[place] : 1945 Planned Disposition: Home Anticipated Discharge Date: Discharge Date: Expected LOS: Initial Reviewer: [email or web address] Initial Review Date: 04/03/2018 Generated: 04/22/18 3:11 pm DCP- Discharge Planning Updated by [email or web address]: Jerri Miller on 04/22/18 1:[address] She has been accepted to [facility] for SNF for 20 days with Medicare benefits. I informed patient, and [facility] with Dr. Srinivasan. CM will continue to follow and assist with discharge planning/needs. DCP- Discharge Planning Updated by [email or web address]: Jerri Angela on 04/20/18 1:[address] Patient's spoke to me about discharge planning. I informed him that she would not be able to go to inpatient rehab here, but the [place] rehab was an option. He states she is not wanting to go to a rehab facility at this time. states he is looking into private care givers. I called Gera at [facility] to inquire about oxygen and home health. He states the patient has a office visit scheduled for Thursday to see Dr. Avalos. I informed Gera that she was ready for discharge and asked if the oxygen or home health was approved and he said they would call me when approved. CM will continue to follow and assist with discharge planning/needs. DCP- Discharge Planning Updated by [id number]: Jerri Miller on 04/20/18 10:[address] Met with patient, she is alone in the room. I informed her that the physician had ordered a rehab screen and I would need to speak to the [facility] about [facility] at the [place]. Patient states she does not want to go to rehab. States her will be available to help her at home. States she may need home health for strengthening. I called a spoke to Nora at the [facility] in [place]. She states she will call the patient's nurse and have them call me. CM will continue to follow and assist with discharge planning/needs. DCP- Discharge Planning Updated by [id number]: Jerri Miller on 04/14/18 2:[address] I called the [facility] clinic and spoke with Gera and informed him of need for home oxygen and home health. I faxed clinical and order for home oxygen and home health needs to [phone] per his request. CM will continue to follow and assist with discharge planning/needs. DCP- Discharge Planning Updated by [id number]: Alanis Cavazos on 04/13/18 4:[address] Patient Name: RAMON PIERCE Admission Status: ER Accout number: [id number] Admission Date: 04-03-2018 : 1945 Admission Diagnosis:HEART FAILURE, UNSPECIFIED Attending: BRITTANI ENRIQUEZ Current LOS: 10 Anticipated DC Date: Planned Disposition: Home Primary Insurance: [employer] Discharge Planning Comments: CM met with patient at bedside. Patient states she lives at home with her and plans to return to their home upon discharge. Patient states she may need HH or personal lines sales rep upon discharge. She may also need BiPap / Home 02 upon discharge. CM will contact [facility] to find out what is required for DME / HH. CM will continue to follow and assist as needed with discharge planning / needs. Clinical Dietitian: Alanis Cavazos DCP- Discharge Planning Updated by [email or web address]: Alanis aCvazos on 04/09/18 5:[address] CM attempted to meet with patient regarding discharge planning. Patient is currently on vent and no family available at this time.CM will continue to follow and assist as needed with discharge planning / needs. DCP- Discharge Planning Updated by [email or web address]: Alanis Cavazos on 04/05/18 4:[address] CM CONTACTED VA EXPIDITOR AND LEFT MESSAGE WITH AMANDA POLLACK. CM will continue to follow and assist as needed with discharge planning / needs. DCPIA - Discharge Planning Initial Assessment Updated by [email or web address]: Alanis Cavazos on 04/13/18 6:15 pm * Is the patient Alert and Oriented? Yes * How many steps to enter\exit or inside your home? * PCP An[facility]te Magall[facility] - [facility] * [facility] * Preadmission Environment Home with Family * ADLs Independent * Equipment None * List name and contact numbers for known caregivers / representatives who currently or will assist patient after discharge: Daren Pierce - spouse- [phone], * Verbal permission to speak to the caregivers and representatives has been obtained from the patient. Yes * Community resources currently utilized None * Additional services required to return to the preadmission environment? No * Can the patient safely return to the preadmission environment? Yes * Has this patient been hospitalized within the prior 30 days at any hospital? Yes Last DP export: 04/21/18 2:38 p Patient Name: RAMON PIERCE Page 52707 at 1411 All edits/amendments must be made on the electronic document DICTATION DATE: 04/22/181409 SALESPERSON FLYING SQUAD: EMILY 04/22/181409 RPT#: [id number] DC DATE: STATUS: ADM IN [facility] [address] [place] [address] END OF REPORT
[2018-04-22 16:28] VITALS: BP 122/71
[2018-04-22 20:00] VITALS: BP 133/67
[2018-04-23] VITALS: BP 117/54
[2018-04-23 04:00] VITALS: BP 119/68
[2018-04-23 04:29] LABS: BASOPHILS 0.1 % (0-2); EOSINOPHILS 0.5 % (0-7); HEMATOCRIT 27.1 % (36.0-48.0); HEMOGLOBIN 8.1 g/dL (12-16); IMMATURE GRANULOCYTES 0.6 % (0-5); MCH 28.7 pg (26.0-34.0); MCHC 29.9 g/dL (31.0-37.0); MCV 96.1 fL (80.0-100.0); MEAN PLATELET VOLUME 11.7 fL (7.4-10.4); MONOCYTES 8.8 % (2-11); RBC 2.82 10x6/uL (4.00-5.40); RDW 16.2 % (11.5-14.5); WBC 10.8 10x3/uL (4.8-10.8)
[2018-04-23 04:32] LABS: PLATELET COUNT 241 10x3/uL (130-400)
[2018-04-23 05:15] LABS: ALBUMIN 2.2 g/dL (3.4-5.0); ANION GAP 12.1 mmol/L (8-16); BILIRUBIN - TOTAL 0.45 mg/dL (0.2-1.3); CALCIUM 7.5 mg/dL (8.5-10.1); CARBON DIOXIDE 27.6 mmol/L (21.0-32.0); CREATININE - SERUM 1.1 mg/dL (0.6-1.3); POTASSIUM - SERUM 3.7 mmol/L (3.5-5.1)
[2018-04-23 09:35] VITALS: BP 122/67
[2018-04-23] MEDS ORDERED: LEVAQUIN750 MG PO (10:11)
--- NOTE | 2018-04-23 10:43 | NUR ---
ALERT AND ORINETED WITH LUNGS CTA.NO EDEMA NOTED TO BLE. TELEMETRY INTACT WITHHR 72 WITH TRIGEMINAL PVC'S AND DENIES ANY CHEST PAIN OR DISCOMFORT. IV INTACT WITH ANTICIPATED DISCHARGE NOTED . ENCOURAGED TO USE CALL LIGHT FOR ASSIST AND ATTILA ANY PAIN OR DISCOMFORT AT THIS TIME.
[2018-04-23 11:06] LABS: % SATURATION 6 % (15-55); IRON 18 ug/dl (35-150); TOTAL IRON BIND CAPACITY 259 ug/dl (260-445); UNSAT IRON BIND CAPACITY 241 ug/dl (150-375)
[2018-04-23 12:45] VITALS: BP 125/75
--- NOTE | 2018-04-23 13:04 | MORECARE ---
CASE MANAGEMENT DISCHARGE SUMMARY PATIENT: RAMON PIERCE UNIT: [id number] ADM DATE: 04/03/18 AGE: 72 : 47 SEX: F ROOM/BED: D.2229 AUTHOR: JAVAN,DOC PHYSICIAN: REFERRING PHYSICIAN: BRITTANI ENRIQUEZ MD DATE OF SERVICE: 04/23/18 Discharge Plan Patient Name: RAMON PIERCE Facility: [facility]:[place] : 1945 Planned Disposition: Home Anticipated Discharge Date: Discharge Date: Expected LOS: Initial Reviewer: [email or web address] Initial Review Date: 04/03/2018 Generated: 04/23/18 2:03 pm Comments DCP- Discharge Planning Updated by [email or web address]: Jerri Miller on 04/23/18 11:[address] Received orders for discharge. She states she wants to go home. Walk test done and she requires oxygen with exertion. I spoke with Paresh with Dr. Srinivasan and we both spoke to her about the safety of going to [facility] today rather than home. She agrees to go to [facility]today. Vanessa informed and they will pick her up between 2 and 3. I informed her that she is still needing oxygen and walk test faxed to them. at bedside. CM will continue to follow and assist with discharge planning/needs. DCP- Discharge Planning Updated by [email or web address]: Jerri Miller on 04/22/18 1:[address] She has been accepted to [facility] for SNF for 20 days with Medicare benefits. I informed patient, and [facility] with Dr. Srinivasan. CM will continue to follow and assist with discharge planning/needs. DCP- Discharge Planning Updated by [email or web address]: Jerri Miller on 04/20/18 1:[address] Patient's spoke to me about discharge planning. I informed him that she would not be able to go to inpatient rehab here, but the [place] rehab was an option. He states she is not wanting to go to a rehab facility at this time. states he is looking into private care givers. I called Gera at [facility] to inquire about oxygen and home health. He states the patient has a office visit scheduled for Thursday to see Dr. Avalos. I informed Gera that she was ready for discharge and asked if the oxygen or home health was approved and he said they would call me when approved. CM will continue to follow and assist with discharge planning/needs. DCP- Discharge Planning Updated by [email or web address]: Jerri Miller on 04/20/18 10:[address] Met with patient, she is alone in the room. I informed her that the physician had ordered a rehab screen and I would need to [facility] the [facility]. Patient states she does not want to go to rehab. States her will be available to help her at home. States she may need home health for strengthening. I called a spoke to Nora at the [facility] in [place]. She states she will call the patient's nurse and have them call me. CM will continue to follow and assist with discharge planning/needs. DCP- Discharge Planning Updated by [email or web address]: Jerri Miller on 04/14/18 2:[address] I called the [facility] clinic and spoke with Gera and informed him of need for home oxygen and home health. I faxed clinical and order for home oxygen and home health needs to [phone] per his request. CM will continue to follow and assist with discharge planning/needs. DCP- Discharge Planning Updated by [id number]: Alanis Cavazos on 04/13/18 4:[address] Patient Name: RAMON PIERCE Admission Status: Accout number: [id number] Admission Date: 04-03-2018 : 1945 Admission Diagnosis:HEART FAILURE, UNSPECIFIED Attending: BRITTANI ENRIQUEZ Current LOS: 10 Anticipated DC Date: Planned Disposition: Home Primary Insurance: [employer] Discharge Planning Comments: CM met with patient at bedside. Patient states she lives at home with her and plans to return to their home upon discharge. Patient states she may need HH or radio personality upon discharge. She may also need BiPap / Home 02 upon discharge. CM will contact CT to find out what is required for DME / HH. CM will continue to follow and assist as needed with discharge planning / needs. Parish Worker: Alanis Cavazos DCP- Discharge Planning Updated by [email or web address]: Alanis Cavazos on 04/09/18 5:[address] CM attempted to meet with patient regarding discharge planning. Patient is currently on vent and no family available at this time.CM will continue to follow and assist as needed with discharge planning / needs. DCP- Discharge Planning Updated by [email or web address]: Alanis Mcgillr on 04/05/18 4:[address] CM CONTACTED VA EXPIDITOR AND LEFT MESSAGE WITH AMANDA POLLACK. CM will continue to follow and assist as needed with discharge planning / needs. DCPIA - Discharge Planning Initial Assessment Updated by [email or web address]: Alanis Macy on 04/13/18 6:15 pm * Is the patient Alert and Oriented? Yes * How many steps to enter\exit or inside your home? * PCP Annette Magallanes - [facility] * [facility] * Preadmission Environment Home with Family * ADLs Independent * Equipment None * List name and contact numbers for known caregivers / representatives who currently or will assist patient after discharge: Daren Pierce - spouse- [phone], * Verbal permission to speak to the caregivers and representatives has been obtained from the patient. Yes * Community resources currently utilized None * Additional services required to return to the preadmission environment? No * Can the patient safely return to the preadmission environment? Yes * Has this patient been hospitalized within the prior 30 days at any hospital? Yes Last DP export: 04/22/18 1:11 p Patient Name: RAMON PIERCE Page 36093 at 1304 All edits/amendments must be made on the electronic document DICTATION DATE: 04/23/18 1303 PLATE GLASS INSTALLER: EMILY 04/23/18 1303 RPT#: [id number] DC DATE: STATUS: ADM IN [facility] [address] [place] [address] END OF REPORT
--- NOTE | 2018-04-23 14:56 | NUR ---
DISCHARGED TO [facility] WITH REPORT CALLED TO RAUL. STABLE PRIOR TO DISCHARGE WITH IV REMOVED. VERBALIZED UNDERSTANDING OF DISCHARGE INSTRUCTIONS.
[2018-04-24 08:17] LABS: FOLATE (FOLIC ACID) - SERUM >20.0 ng/mL (>3.0)
--- NOTE | 2018-04-28 14:40 | MORECARE ---
CASE MANAGEMENT DISCHARGE SUMMARY PATIENT: RAMON PIERCE UNIT: [id number] ADM DATE: 04/03/18 AGE: 72 : [birth year] SEX: F ROOM/BED: D.2229 AUTHOR: JAVAN,DOC PHYSICIAN: REFERRING PHYSICIAN: BRITTANI ENRIQUEZ MD DATE OF SERVICE: 04/28/18 Discharge Plan Patient Name: RAMON PIERCE Facility: [facility]:[place] : 1945 Planned Disposition: Home Anticipated Discharge Date: Discharge Date: 04/23/2018 Expected LOS: 0 Initial Reviewer: [email or web address] Initial Review Date: 04/03/2018 Generated: 04/28/18 3:40 pm Comments DCP- Discharge Planning Updated by [email or web address]: Jerri Miller on 04/23/18 11:[address] Received orders for discharge. She states she wants to go home. Walk test done and she requires oxygen with exertion. I spoke with Paresh with Dr. Srinivasan and we both spoke to her about the safety of going to [facility] today rather than home. She agrees to go to [facility]today. Vanessa informed and they will pick her up between 2 and 3. I informed her that she is still needing oxygen and walk test faxed to them. at bedside. CM will continue to follow and assist with discharge planning/needs. DCP- Discharge Planning Updated by [email or web address]: Jerri Miller on 04/22/18 1:[address] She has been accepted to [facility] for SNF for 20 days with Medicare benefits. [facility]. CM will continue to follow and assist with discharge planning/needs. DCP- Discharge Planning Updated by [id number]: Jerri Miller on 04/20/18 1:[address] Patient's spoke to me about discharge planning. I informed him that she would not be able to go to inpatient rehab here, but the [place] rehab was an option. He states she is not wanting to go to a rehab facility at this time. states he is looking into private care givers. I called Gera at [facility] to inquire about oxygen and home health. He states the patient has a office visit scheduled for Thursday to see Dr. Avalos. I informed Gera that she was ready for discharge and asked if the oxygen or home health was approved and he said they would call me when approved. CM will continue to follow and assist with discharge planning/needs. DCP- Discharge Planning Updated by [id number]: Jerri Miller on 04/20/18 10:[address] Met with patient, she is alone in the room. I informed her that the physician had ordered a rehab screen and I would need to speak to the [facility] about re[facility] at the [place]. Patient states she does not want to go to rehab. States her will be available to help her at home. States she may need home health for strengthening. I called a spoke to Nora at the [facility] in [place]. She states she will call the patient's nurse and have them call me. CM will continue to follow and assist with discharge planning/needs. DCP- Discharge Planning Updated by [id number]: Jerri Miller on 04/14/18 2:[address] I called the [facility] clinic and spoke with Gera and informed him of need for home oxygen and home health. I faxed clinical and order for home oxygen and home health needs to [phone] per his request. CM will continue to follow and assist with discharge planning/needs. DCP- Discharge Planning Updated by [email or web address]: Alanis Cavazos on 04/13/18 4:[address] Patient Name: RAMON PIERCE Admission Status: ER Accout number: [id number] Admission Date: 04-03-2018 : 1945 Admission Diagnosis:HEART FAILURE, UNSPECIFIED Attending: BRITTANI ENRIQUEZ Current LOS: 10 Anticipated DC Date: Planned Disposition: Home Primary Insurance: [employer] Discharge Planning Comments: CM met with patient at bedside. Patient states she lives at home with her and plans to return to their home upon discharge. Patient states she may need HH or linen aide upon discharge. She may also need BiPap / Home 02 upon discharge. CM will contact [place] to find out what is required for DME / HH. CM will continue to follow and assist as needed with discharge planning / needs. Armament Aircraft Mechanic: Alanis Cavazos DCP- Discharge Planning Updated by [id number]: Alanis Cavazos on 04/09/18 5:[address] CM attempted to meet with patient regarding discharge planning. Patient is currently on vent and no family available at this time.CM will continue to follow and assist as needed with discharge planning / needs. DCP- Discharge Planning Updated by [email or web address]: Alanis Cavazos on 04/05/18 4:[address] CM CONTACTED VA EXPIDITOR AND LEFT MESSAGE WITH AMANDA POLLACK. CM will continue to follow and assist as needed with discharge planning / needs. DCPIA - Discharge Planning Initial Assessment Updated by [email or web address]: Alanis Cavazos on 04/13/18 6:15 pm * Is the patient Alert and Oriented? Yes * How many steps to enter\exit or inside your home? * PCP [facility]te [facility] * [facility] * Preadmission Environment Home with Family * ADLs Independent * Equipment None * List name and contact numbers for known caregivers / representatives who currently or will assist patient after discharge: Daren Pierce - spouse- [phone], * Verbal permission to speak to the caregivers and representatives has been obtained from the patient. Yes * Community resources currently utilized None * Additional services required to return to the preadmission environment? No * Can the patient safely return to the preadmission environment? Yes * Has this patient been hospitalized within the prior 30 days at any hospital? Yes Last DP export: 04/23/18 12:04 p Patient Name: RAMON PIERCE Page 51630 at 1440 All edits/amendments must be made on the electronic document DICTATION DATE: 04/28/18 1439 REGIONAL COORDINATOR: EMILY 04/28/18 1439 RPT#: [id number] DC DATE:04/23/18 STATUS: DIS IN [facility] [address] [place] [address] END OF REPORT
== END 2018-04-23 14:58 | DRG 207 ==
LOC: D.ER 04:04 → D.EDHOLD 05:45 → D.ICU 05:45 → D.M2 06:22 → D.ICU 04-04 18:00 → D.MS 04-14 11:36
PROVIDERS: Emergency Medicine; Family Medicine; Family Medicine Adult Medicine; Internal Medicine Interventional Cardiology; Internal Medicine Nephrology; Internal Medicine Pulmonary Disease; ADMIT Family Medicine; ATTEND Family Medicine
PROC: B2111ZZ Fluoroscopy of Multiple Coronary Arteries using Low Osmolar Contrast (ICD-10-PCS; 2018-04-04)
PROC: 0BH17EZ Insertion of Endotracheal Airway into Trachea, Via Natural or Artificial Opening (ICD-10-PCS; 2018-04-04)
PROC: 05H533Z Insertion of Infusion Device into Right Subclavian Vein, Percutaneous Approach (ICD-10-PCS; 2018-04-04)
PROC: B2151ZZ Fluoroscopy of Left Heart using Low Osmolar Contrast (ICD-10-PCS; 2018-04-04)
PROC: 4A023N7 Measurement of Cardiac Sampling and Pressure, Left Heart, Percutaneous Approach (ICD-10-PCS; 2018-04-04)
PROC: 5A1955Z Respiratory Ventilation, Greater than 96 Consecutive Hours (ICD-10-PCS; principal; 2018-04-04 17:02)
PROC: 0BCB8ZZ Extirpation of Matter from Left Lower Lobe Bronchus, Via Natural or Artificial Opening Endoscopic (ICD-10-PCS; 2018-04-09)
PROC: 0BC68ZZ Extirpation of Matter from Right Lower Lobe Bronchus, Via Natural or Artificial Opening Endoscopic (ICD-10-PCS; 2018-04-09)
DX: J96.01 Acute respiratory failure with hypoxia (principal); I50.21 Acute systolic (congestive) heart failure; I21.4 Non-ST elevation (NSTEMI) myocardial infarction; J18.9 Pneumonia, unspecified organism; I46.9 Cardiac arrest, cause unspecified; G93.41 Metabolic encephalopathy; K72.00 Acute and subacute hepatic failure without coma; N17.0 Acute kidney failure with tubular necrosis; J44.1 Chronic obstructive pulmonary disease with (acute) exacerbation; J44.0 Chronic obstructive pulmonary disease with (acute) lower respiratory infection; I24.8 Other forms of acute ischemic heart disease; T17.590A Other foreign object in bronchus causing asphyxiation, initial encounter; N39.0 Urinary tract infection, site not specified; I25.10 Atherosclerotic heart disease of native coronary artery without angina pectoris; E78.5 Hyperlipidemia, unspecified; I10 Essential (primary) hypertension; R31.9 Hematuria, unspecified; D64.9 Anemia, unspecified; E11.9 Type 2 diabetes mellitus without complications; D72.829 Elevated white blood cell count, unspecified; I08.1 Rheumatic disorders of both mitral and tricuspid valves

== ENCOUNTER 2018-04-30 14:49 | Inpatient (IN) | payer OTHER ==
[~2018-04-30] VITALS: Ht 157.5 cm; Wt 61.4 kg
--- NOTE | ~2018-04-30 | CN ---
PATIENT NAME:RAMON PIERCE MEDICAL RECORD: [id number] : 49 LOCATION:[facility].2314 ADMIT DATE: 04/30/18 ACCOUNT: [id number] CONSULTING PHYSICIAN: ZAY CARDENAS MD REFERRING PHYSICIAN: PINEDA BARRERA MD DATE OF CONSULTATION: 04/30/2018 CONSULT REQUESTING PHYSICIAN: Pineda Barrera MD REASON FOR CONSULTATION: Vent management, acute respiratory failure. HISTORY OF PRESENT ILLNESS: Ms. Pierce is a 72-year-old female who has a history of severe COPD, who was [facility] with worsening shortness of breath. She found out having elevated D-dimer. The patient was on metabolic as well as respiratory acidosis. The patient was orally intubated. Now, the history was taken mainly by reviewing the patient's note and talking to the nursing staff. REVIEW OF SYSTEMS: The detail is not obtainable. PAST MEDICAL HISTORY: 1. COPD. 2. Hypertension. 3. History of CA colon. 4. Chronic kidney disease. PAST SURGICAL HISTORY: She has a colon surgery and ankle surgery. ALLERGIES: No known drug allergy. MEDICATIONS: On Simulated [employer] Systems is reviewed. PERSONAL AND SOCIAL HISTORY: The patient is an ex-smoker. She is a nondrinker. FAMILY HISTORY: Noncontributory. PHYSICAL EXAMINATION: GENERAL: Now, the patient is orally intubated and sedated. VITAL SIGNS: The blood pressure is 103/47, pulse is 57-61, temperature 97.9. On arrival to the hospital, her heart rate was 121. HEENT: Conjunctivae are pink. Sclerae not icteric. NECK: Supple, no JVD. CHEST: There is no wheeze, no rales. HEART: Rhythm regular, normal sound, no murmur. ABDOMEN: Soft, bowel sounds present. No hepatosplenomegaly. RECTAL: Deferred. EXTREMITIES: No cyanosis, no clubbing, no pedal edema. CENTRAL NERVOUS SYSTEM: The patient is orally intubated and sedated. There is no obvious cranial nerve abnormality. CHEST RADIOGRAPH: There is no acute infiltrate. LABORATORY DATA: D-dimer is 8.72, CBC: The WBC is 16.2. The hemoglobin is 8.3, hematocrit is 27.6. Chemistry: Sodium is 135, potassium was 3.6. On admission, the potassium 6.6, BUN is 65, creatinine 2.4, bicarbonate 18.4. ABG CONSULT REPORT [id number] RAMON PIERCE on admission, the pH was 7.07, pCO2 was 42.3, the pO2 was 126, bicarbonate is 12.3. The lactic acid level was 11.57. Repeat ABG: The pH is 7.36, pCO2 is 30.2, the pO2 is 209, bicarbonate is 17.2. IMPRESSION: 1. Acute hypoxic hypercapnic respiratory failure. 2. Respiratory and metabolic acidosis, rule out sepsis. 3. Hyperkalemia. 4. Acute exacerbation of COPD. 5. Atrial fibrillation with AVR. 6. Elevated D-dimer, rule out pulmonary thromboembolism. 7. Leukocytosis. 8. Anemia. RECOMMENDATION: 1. Continue mechanical ventilation, adjust the setting. 2. Albuterol ipratropium nebulizer. 3. Brovana, budesonide nebulizer. 4. Continue present empiric antibiotic. 5. Methylprednisolone IV. 6. Continue Lovenox. 7. Check ultrasound of the lower extremities. 8. Follow up on the blood cultures. 9. Fluid resuscitation per nephrology. Discussed with Dr. Wren. Dr. Barrera, thank you for involving me in the care of Ms. Pierce. TRANSINT:[id number] Voice Confirmation ID: [id number] DOCUMENT ID: [id number] ZAY CARDENAS MD CC: [id number] DICTATION DATE: 05/01/18 1302 BLACK STUDIES PROFESSOR: 05/01/18 1327 ADM IN [facility] [address] [place] [address]
[~2018-04-30 14:49] MED LIST changes: +LEVAQUIN750 MG PO
[2018-04-30 15:25] LABS: BASOPHILS 0.1 % (0-2); EOSINOPHILS 0 % (0-7); HEMATOCRIT 29.8 % (36.0-48.0); HEMOGLOBIN 9.4 g/dL (12-16); IMMATURE GRANULOCYTES 0.8 % (0-5); LYMPHOCYTES 2.9 % (15-50); MCH 29.8 pg (26.0-34.0); MCHC 31.5 g/dL (31.0-37.0); MCV 94.6 fL (80.0-100.0); MEAN PLATELET VOLUME 11.3 fL (7.4-10.4); MONOCYTES 11.3 % (2-11); NEUTROPHILS 84.9 % (40-80); RBC 3.15 10x6/uL (4.00-5.40); RDW 16.8 % (11.5-14.5); WBC 14.9 10x3/uL (4.8-10.8)
[2018-04-30 15:37] LABS: PLATELET COUNT 383 10x3/uL (130-400)
[2018-04-30 15:38] LABS: ANION GAP 21.1 mmol/L (8-16); BILIRUBIN - TOTAL 1.15 mg/dL (0.2-1.3); CALCIUM 9.6 mg/dL (8.5-10.1); CARBON DIOXIDE 23.5 mmol/L (21.0-32.0); POTASSIUM - SERUM 5.6 mmol/L (3.5-5.1); PROTEIN - SERUM 6.2 g/dL (6.4-8.2)
[2018-04-30 18:09] LABS: APPEARANCE CLEAR (CLEAR); BILIRUBIN NEGATIVE (NEGATIVE); COLOR YELLOW (YELLOW); GLUCOSE NEGATIVE (NEGATIVE); KETONE NEGATIVE (NEGATIVE); NITRITE NEGATIVE (NEGATIVE); PROTEIN TRACE mg/dL (NEGATIVE); SPECIFIC GRAVITY 1.025 (1.005-1.020); UROBILINOGEN NORMAL (NORMAL)
--- NOTE | 2018-04-30 18:17 | MORECARE ---
CASE MANAGEMENT DISCHARGE SUMMARY PATIENT: RAMON PIERCE UNIT: [id number] ADM DATE: 04/30/18 AGE: 72 : [birth year] SEX: F ROOM/BED: [facility] AUTHOR: IDRIS EDOUARD PHYSICIAN: REFERRING PHYSICIAN: DARCI BARRERA MD DATE OF SERVICE: 04/30/18 Discharge Plan Patient Name: RAMON PIERCE Facility: [facility]:[place] : 1945 Planned Disposition: Anticipated Discharge Date: Discharge Date: Expected LOS: Initial Reviewer: [email or web address] Initial Review Date: 04/30/2018 Generated: 04/30/18 7:17 pm Patient Name: RAMON PIERCE Page 70376 at 1817 All edits/amendments must be made on the electronic document DICTATION DATE: 04/30/181816 ACCOUNTING COORDINATOR: EMILY 04/30/181816 RPT#: [id number] [place] DATE: STATUS: ADM IN [facility] [address] [place] [address] END OF REPORT
[2018-04-30 18:23] LABS: AMYLASE - SERUM 72 U/L (25-115); LIPASE 213 U/L (73-393)
[2018-04-30 19:00] VITALS: BP 100/61; BP 108/93; BMI 24.8
--- NOTE | 2018-04-30 19:00 | NUR ---
RECEIVED PATIENT FROM DAY SHIFT, NEW ADMIT FROM ER. ADMISSION ASSESSMENT COMPLETED, SEE FLOWSHEET. VSS. PATIENT ON 3LNC WITH PULSE OX READING 96%, SLIGHT WHEEZE HEARD IN UPPERE LUNG SAAB. VSS. WILL MONITOR CLOSELY THROUGH OUT THE NIGHT.
[2018-04-30 20:00] VITALS: BP 94/66
--- NOTE | 2018-04-30 20:45 | NUR ---
DR. BUSTILLOS NOTIFIED OF CARDIOLOGY CONSULT. INFORMED THAT PATIENT WAS STARTED ON DILTIAZEM GTT IN ER. NO NEW ORDERS AT THIS TIME. WILL MONITOR CLOSELY.
[2018-04-30 21:00] VITALS: BP 99/62
--- NOTE | 2018-04-30 21:00 | NUR ---
PATIENT RESTING. VSS. LASIX HELD FOR SBP LESS THAN 100, SEE APR. WILL CTM.
[2018-04-30 22:00] VITALS: BP 101/58
[2018-04-30 23:00] VITALS: BP 93/63
--- NOTE | 2018-04-30 23:00 | NUR ---
REASSESSMENT COMPLETED, SEE FLOWSHEET. VSS. PATIENT RESTLESS, STATES THAT SHE IS HOT. BLANKETS REMOVED, TEMP LOWERED AND PATIENT ASSISTED WITH REPOSITIONING FOR COMFORT. WILL CTM.
[2018-04-30 23:59] VITALS: BP 108/93
[2018-05-01] VITALS (25 sets, daily range): BP systolic 78–129; BP diastolic 45–69; Ht 157.5 cm; Wt 61.4 kg
--- NOTE | 2018-05-01 01:00 | NUR ---
NO ACUTE CHANGES NOTED. PATIENT APPEARS TO BE RESTING COMFORTABLY. VSS. WILL CTM.
--- NOTE | 2018-05-01 02:00 | NUR ---
DILTIAZEM GTT TURNED DOWN TO 5 ML/HR DUE TO LOW HR, 58. WILL CTM.
--- NOTE | 2018-05-01 03:00 | NUR ---
REASSESSMENT COMPLETED, SEE FLOWSHEET. VSS. PATIENT SLEEPING AT THIS TIME. CONTINUES TO BE SR ON THE MONITOR, RATE 60. WILL CTM.
--- NOTE | 2018-05-01 03:30 | NUR ---
DILT GTT TURNED OFF AT THIS TIME, HR 58. WILL CTM.
[2018-05-01 05:01] LABS: BASOPHILS 0.1 % (0-2); EOSINOPHILS 0 % (0-7); HEMATOCRIT 27.6 % (36.0-48.0); HEMOGLOBIN 8.3 g/dL (12-16); IMMATURE GRANULOCYTES 1.7 % (0-5); LYMPHOCYTES 2.7 % (15-50); MCH 29.9 pg (26.0-34.0); MCHC 30.1 g/dL (31.0-37.0); MCV 99.3 fL (80.0-100.0); MEAN PLATELET VOLUME 11.5 fL (7.4-10.4); MONOCYTES 8.1 % (2-11); NEUTROPHILS 87.4 % (40-80); PLATELET COUNT 323 10x3/uL (130-400); RBC 2.78 10x6/uL (4.00-5.40); RDW 16.9 % (11.5-14.5); WBC 16.2 10x3/uL (4.8-10.8)
--- NOTE | 2018-05-01 05:08 | NUR ---
called to ICU for patient and respiratory failure.a she had no spontaneous respirations but did have a spontaneous pulse in the 60s. Acted to intubate the patient. Made one attempt without medications but was unsuccessful. Patient was socially given 5 mg is Versed in the 100 mg of succinylcholine. A second attempt at intubation but the light on the blade would not eliminate. After changing blades, 30 was made without complications and patient was intubated successfully as noted by capnography change, fogging of the 2, and equal and bilateral breath sounds with good respiratory excursion. Chest x-ray showed good tube placement and essentially normal lung markings, normal cardiac silhouette, normal mediastinum. Subsequent ABG showed a pH of 7.0 and I ordered 3 A of bicarbonate and a normal saline bolus of 1 L.
[2018-05-01 05:32] LABS: ALBUMIN 2.6 g/dL (3.4-5.0); ALKALINE PHOSPHATASE 169 U/L (46-116); CALCIUM 8.5 mg/dL (8.5-10.1); CHLORIDE - SERUM 96 mmol/L (98-107); CKMB 22.6 U/L (0.0-3.6); CREATINE KINASE 374 UL (21-215); CREATININE - SERUM 2.5 mg/dL (0.6-1.3); PRO BNP 29790 pg/mL (0-125); PROTEIN - SERUM 5.6 g/dL (6.4-8.2); SODIUM 132 mmol/L (136-145); UREA NITROGEN 60 mg/dL (7-18); eGFR NON AFRICAN AMERICAN 20 mL/min (90-120)
[2018-05-01 05:33] LABS: CALC OSMOLALITY 279 mosm/kg (275-300); CARBON DIOXIDE 11.3 mmol/L (21.0-32.0); GLUCOSE 60 mg/dL (74-106); POTASSIUM - SERUM 6.6 mmol/L (3.5-5.1)
[2018-05-01 05:34] LABS: ALT (SGPT) 3813 U/L (10-68); TROPONIN-I 0.547 ng/mL (0.000-0.060)
--- NOTE | 2018-05-01 07:13 | NUR ---
0416-PATIENT BP 67/47, FOUND AGONAL BREATHING. CODE BLUE CALLED, SEE CODE SHEET. 0426-INTUBATED WITH 7.5 OETT, 22CM @ LIP, AC RATE 12, TV500, FIO2 60%, PEEP 5. SBP NOW 90S TO 100S. WILL CTM.
--- NOTE | 2018-05-01 08:43 | NUR ---
DR QUINONEZ PAGED REGARDING HIGH POTASSIUM LEVELS.
--- NOTE | 2018-05-01 09:06 | NUR ---
DR SCOTT HAS SPOKEN WITH PTS FAMILY REGARDING CODE STATUS. PTS BOWEN STATED TO PHYSICIAN THAT HE WOULD SPEAK WITH FAMILY BEFORE MAKING A DECISION. WILL CONTINUE PLAN OF CARE.
--- NOTE | 2018-05-01 09:06 | NUR ---
SPOKE WITH DR QUINONEZ REGARDING POTASSIUM LEVEL OF 6.6. ORDERS RECIEVED.
--- NOTE | 2018-05-01 11:06 | NUR ---
AFTER PTS EX- HAS SPOKEN WITH PHYSICIANS AND SPOKEN WITH PTS CHILDREN, DECISION WAS MADE FOR PT TO BE A DNR. DR QUINONEZ WAS AT BEDSIDE WHEN THIS WAS STATED. ALL QUESTIONS AND CONCERNS ADDRESSED. NOTED PER PTS POA PAPERS, PT CHILDREN KEE AND FLAVIA ARE PTS POA, HOWEVER ALSO PER PAPERWORK, IF THEY ARE NOT AVALIABLE THEN PTS EX-, DONITA, IS TO MAKE MEDICAL DECISIONS. DONITA STATED HE IS UNABLE TO GET AHOLD OF SOME OF THE CHILDREN, BUT THE DAUGHER IS SUPPOSED TO BE HERE TONIGHT AROUND MIDNIGHT FOR FUTHER DECISIONS TO BE MADE REGARDING POSSIBLE TERMINAL EXTUBATION. NO ACUTE DISTRESS NOTED. PT TURNED Q2H. ORAL CARE PROVIDED Q2H. WILL CONTINUE PLAN OF CARE.
[2018-05-01 11:36] LABS: CALCIUM 7.6 mg/dL (8.5-10.1); CREATININE - SERUM 2.4 mg/dL (0.6-1.3)
[2018-05-01 11:38] LABS: ANION GAP 24.2 mmol/L (8-16); CARBON DIOXIDE 18.4 mmol/L (21.0-32.0); POTASSIUM - SERUM 5.6 mmol/L (3.5-5.1)
--- NOTE | 2018-05-01 14:15 | NUR ---
NOTED PT HAS DVT PER ULTRASOUND. DR CARDENAS NOTIFIED, NO NEW ORDERS RECIEVED SINCE PT IS ALREADY ON LOVENOX.
--- NOTE | 2018-05-01 14:49 | NUR ---
BED BATH PROVIDED ALONG WITH TOTAL LINEN CHANGE AT THIS TIME. NO ACUTE DISTRESS NOTED. PT TURNED Q2H. ORAL CARE PROVIDED IS PROVIDED Q2H. WILL CONTINUE PLAN OF CARE.
--- NOTE | 2018-05-01 16:27 | NUR ---
NO AUCTE DISTRESS NOTED. PT UP IN BED ON VENT. AWAKENS TO DEEP STIMULATION. VSS. ORAL CARE PROVIDED Q2H. TURNED Q2H. WILL CONTINUE PLAN OF CARE.
[2018-05-01 17:30] LABS: CALCIUM 7.5 mg/dL (8.5-10.1); CREATININE - SERUM 2.3 mg/dL (0.6-1.3)
[2018-05-01 17:31] LABS: ANION GAP 14.5 mmol/L (8-16); POTASSIUM - SERUM 4.5 mmol/L (3.5-5.1)
--- NOTE | 2018-05-01 18:27 | NUR ---
NO ACUTE DISTRESS NOTED. NO CHANGE. PT TURNED Q2H. ORAL CARE PROVIDED Q2H. WILL CONTINUE PLAN OF CARE.
--- NOTE | 2018-05-01 19:44 | NUR ---
DONITA CALLED - PASSWORD GIVEN, UPDATE RECEIVED ALL QUESTIONS ANSWERED, HE WILL BE IN TONIGHT FOR VISITING HOURS
--- NOTE | 2018-05-01 21:30 | NUR ---
FAMILY AT BEDSIDE, UPDATE GIVEN, CPOC
[2018-05-01 23:04] LABS: CALCIUM 7.2 mg/dL (8.5-10.1); CARBON DIOXIDE 28.1 mmol/L (21.0-32.0); CREATININE - SERUM 2.4 mg/dL (0.6-1.3); POTASSIUM - SERUM 4.1 mmol/L (3.5-5.1)
--- NOTE | 2018-05-01 23:15 | NUR ---
REASSESSMENT COMPLETED SEE FLOWSHEET CPOC
[2018-05-02] VITALS (19 sets, daily range): BP systolic 88–137; BP diastolic 46–72
--- NOTE | 2018-05-02 01:30 | NUR ---
PATIENT INTUBATED/SEDATED, RESTING COMFORTABLY, CPOC
--- NOTE | 2018-05-02 03:20 | NUR ---
REASSESSMENT COMPLETED SEE FLOWSHEET
[2018-05-02 03:43] LABS: HEMATOCRIT 26.5 % (36.0-48.0); HEMOGLOBIN 8.5 g/dL (12-16); MCH 29.2 pg (26.0-34.0); MCHC 32.1 g/dL (31.0-37.0); MCV 91.1 fL (80.0-100.0); MEAN PLATELET VOLUME 11.2 fL (7.4-10.4); PLATELET COUNT 355 10x3/uL (130-400); RBC 2.91 10x6/uL (4.00-5.40); RDW 16.6 % (11.5-14.5); WBC 23.1 10x3/uL (4.8-10.8)
[2018-05-02 03:57] LABS: ANION GAP 11.9 mmol/L (8-16); BILIRUBIN - TOTAL 1.47 mg/dL (0.2-1.3); CALCIUM 7.1 mg/dL (8.5-10.1); CREATININE - SERUM 2.2 mg/dL (0.6-1.3); POTASSIUM - SERUM 3.9 mmol/L (3.5-5.1); PROTEIN - SERUM 4.3 g/dL (6.4-8.2)
[2018-05-02 04:01] LABS: ALBUMIN 1.9 g/dL (3.4-5.0)
[2018-05-02 04:16] LABS: LYMPHOCYTES 3 % (15-50); MONOCYTES 3 % (2-11); NEUTROPHILS 88 % (40-80); PLATELET ESTIMATE NORMAL; PLATELET MORPHOLOGY GIANT PLTS PRESENT
--- NOTE | 2018-05-02 04:42 | NUR ---
PT INTUBATED/SEDATED, NO SIGNS OF DISTRESS, VSS CPOC
--- NOTE | 2018-05-02 08:12 | NUR ---
AWAKE ON VENT AT THIS TIME. ABLE TO FOLLOW COMMANDS, ANSWER YES AND NO QUESTIONS. NO ACUTE DISTRESS NOTED. VSS. PT TURNED Q2H. ORAL CARE PROVIDED Q2H. WILL CONTINUE PLAN OF CARE.
--- NOTE | 2018-05-02 10:11 | NUR ---
FAMILY MEETING NOTED WITH ONCOLOGY AND [place] PHYSICIANS AND NURSE PRACTITIONERS, AND NURSE. AFTER ALL QUESTIONS ADRESSED BY MEDICAL STAFF PTS FAMILY (POA) HAVE DECIDED FOR COMFORT CARE AND HOSPICE. WHIT[facility], CASE MANAGEMENT, NOTIFIED AT THIS TIME AND STATED WILL SEE PTS FAMILY SHORTLY. WILL CONTINUE PLAN OF CARE.
--- NOTE | 2018-05-02 10:39 | CN ---
PATIENT NAME:RAMON PIERCE MEDICAL RECORD: [id number] : 49 LOCATION:[id number] ADMIT DATE: 04/30/18 ACCOUNT: [id number] CONSULTING PHYSICIAN: NAYLA SCOTT MD REFERRING PHYSICIAN: DARCI BARRERA MD DATE OF CONSULTATION: 05/01/2018 HISTORY OF PRESENT ILLNESS: This is a 72-year-old female with history of coronary artery disease, status post intervention, has severe cardiomyopathy, EF 20%, has been having a general downward course over the past several months, admitted with possible sepsis, worsening renal insufficiency, had a respiratory arrest a day, also noted to have potassium of 6.6. We are asked to see her concerning her cardiovascular status. PAST MEDICAL HISTORY: Includes: 1. History of hypertension. 2. Cardiomyopathy. 3. Coronary artery disease as described above. 4. Obstructive pulmonary disease. SOCIAL HISTORY: Currently [place], good family support from . ALLERGIES: None known. REVIEW OF SYSTEMS: Unobtainable from the patient, but the reports this patient has been on a steady downward course with weakness of her overall system. PHYSICAL EXAMINATION: GENERAL: Intubated, sedated, no acute distress. VITAL SIGNS: Blood pressure 103/47, pulse 61 and regular. HEENT: Normocephalic, atraumatic. NECK: No bruits noted. HEART: Distant S3 gallop is noted. A 2/6 systolic ejection murmur. LUNGS: With expiratory wheezing. ABDOMEN: Soft, nontender. EXTREMITIES: Pulses are decreased, 1+. There is no edema. IMPRESSION: Downward course accompanying respiratory failure, cardiac arrest this morning. She received insulin, glucose, calcium for hyperkalemia. Conservative measures are ineffective, may require dialysis. I have discussed in detail with the at this point in time. I think the course will continue to be downward spiral. He will consider further nonaggressive measures such as a DNR, etc. He will discuss this with the family. TRANSINT:[id number] Voice Confirmation ID: [id number] DOCUMENT ID: [id number] CONSULT REPORT [id number] KATIEJosefNAYLA RAMIREZ MD at 1039 CC: [id number] DICTATION DATE: 05/01/18923 OUTPATIENT ADMITTING CLERK: 05/01/18 1056 ADM IN [facility] [address] [place] [id number]
--- NOTE | 2018-05-02 12:37 | NUR ---
FAMILY AT BEDSIDE AT THIS TIME. NO ACUTE DISTRESS NOTED. PER WHITLEY, HOSPICE STATES THEY WILL BE BY SHORTLY. PT TURNED Q2H. ORAL CARE PROVIDED Q2H. WILL CONTINUE PLAN OF CARE.
--- NOTE | 2018-05-02 15:03 | NUR ---
TOTAL BED BATH AND LINEN CHANGE PROVIDED AT THIS TIME. NO ACUTE DISTRESS NOTED. ORAL CARE PROVIDED Q2H. TURNED Q2H. PT ABLE TO FOLLOW COMMANDS AND NOD YES AND NO. WILL CONTINUE PLAN OF CARE.
--- NOTE | 2018-05-02 17:39 | NUR ---
HOSPICE NURSE IS HERE AND SPEAKING WITH PTS FAMILY. ALL QUESTIONS AND CONCERNS ADDRESSED. NO ACUTE DISTRESS NOTED. WILL CONTINUE PLAN OF CARE.
--- NOTE | 2018-05-02 20:30 | MORECARE ---
CASE MANAGEMENT DISCHARGE SUMMARY PATIENT: RAMON PIERCE UNIT: [id number] ADM DATE: 04/30/18 AGE: 72 : 47 SEX: F ROOM/BED: D.[facility] AUTHOR: IDRIS EDOUARD PHYSICIAN: REFERRING PHYSICIAN: DARCI BARRERA MD DATE OF SERVICE: 05/02/18 Discharge Plan Patient Name: RAMON PIERCE [facility] : 1945 Planned Disposition: Hospice Medical Facility Anticipated Discharge Date: 05/03/18 Discharge Date: 05/02/2018 Expected LOS: 3 Initial Reviewer: [email or web address] Initial Review Date: 04/30/2018 Generated: 05/02/18 9:30 pm Last DP export: 04/30/18 5:17 p Patient Name: RAMON PIERCE Page [id number] at 2030 All edits/amendments must be made on the electronic document DICTATION DATE: 05/02/182028 CUSTOM SKI MAKER: EMILY 05/02/182028 RPT#: [id number] DC DATE:05/02/18 STATUS: DIS IN [facility] [address] [place] [address] END OF REPORT
--- NOTE | 2018-05-02 20:43 | MORECARE ---
CASE MANAGEMENT DISCHARGE SUMMARY PATIENT: RAMON PIERCE UNIT: [id number] ADM DATE: 04/30/18 AGE: 72 : 47 SEX: F ROOM/BED: D.2314 AUTHOR: IDRIS EDOUARD PHYSICIAN: REFERRING PHYSICIAN: DARCI BARRERA MD DATE OF SERVICE: 05/02/18 Discharge Plan Patient Name: RAMON PIERCE Facility: [facility]:[place] : 1945 Planned Disposition: Hospice Medical Facility Anticipated Discharge Date: 05/03/18 Discharge Date: 05/02/2018 Expected LOS: 3 Initial Reviewer: [email or web address] Initial Review Date: 04/30/2018 Generated: 05/02/18 9:42 pm Comments DCP- Discharge Planning Updated by [email or web address]: Mary Anne Dougherty on 05/02/18 7:[address] LATE ENTRY 1130 CM RECEIVED TELEPHONE CALL FOR HOSPICE CONSULT/ GIP. SPOKE W/ LUPILLO, THE PRIMARY NURSE. CM SPOKE WITH THE , DONITA, AND GRANDDAUGHTER OF THE PATIENT. THE DOCTORS HAD HAD A FAMILY CONFERENCE TO DISCUSS PROGNOSIS. HOSPICE PACKET PREPARED. TC TO [facility] THE CONTRACTED GIP PROVIDER FOR [facility]. 1145 REC CB FROM JANE, PARTS COUNTER SALESPERSON. INITIAL REFERAL INFORMATION AND CONTACT PHONE NUMBER FOR PROVIDER. [facility] [phone]. STAFF PROVIDING EMOTIONAL SUPPORT FOR FAMILY. AWAITED ARRIAL OF NURSE. FAMILY WAS VERY UPSET THEY HAD RECEIVED 3 TELEPHONE CALLS FROM HOSPICE RESCHEDULING THE TIME TO MEET. THE PATIENT WAS MORE ALERT AND REPORTEDLY WAS BEGGING TO HAVE TUBE DISCONTINUED. FAMILY TEARFUL, ANXIOUS AND WORRIED ABOUT THE PATIENT. 1700 CM RECEIVED TELEPHONE CALL FROM LUPILLO. CM ADVISED HER TO CALL [facility] AGAIN AND TELL THEM OF ABOUT FAMILY'S ANXIETY. [phone] [facility] ONSITE. PLAN FOR EXTUBATION AND GIP HOSPICE THIS LATE PM. Last DP export: 05/02/18 7:30 p Patient Name: RAMON PIERCE Page [id number] at 2042 All edits/amendments must be made on the electronic document DICTATION DATE: 03/24/19 2042 CANE PUSHER: EMILY 05/02/182041 RPT#: [id number] DC DATE:05/02/18 STATUS: DIS IN [facility] [address] [place] [address] END OF REPORT
--- NOTE | 2018-05-03 09:31 | MORECARE ---
CASE MANAGEMENT DISCHARGE SUMMARY PATIENT: RAMON PIERCE UNIT: [id number] ADM DATE: 04/30/18 AGE: 72 : [birth year] SEX: F ROOM/BED: D.2314 AUTHOR: IDRIS EDOUARD PHYSICIAN: REFERRING PHYSICIAN: DARCI BARRERA MD DATE OF SERVICE: 05/03/18 Discharge Plan Patient Name: RAMON PIERCE Facility: [facility] : 1945 Planned Disposition: Hospice Medical Facility Anticipated Discharge Date: 05/03/18 Discharge Date: 05/02/2018 Expected LOS: 3 Initial Reviewer: [email or web address] Initial Review Date: 04/30/2018 Generated: 05/03/18 10:30 am Comments DCP- Discharge Planning Updated by [email or web address]: Mary Anne Dougherty on 05/02/18 7:[address] LATE ENTRY 1130 CM RECEIVED TELEPHONE CALL FOR HOSPICE CONSULT/ GIP. SPOKE W/ LUPILLO, THE PRIMARY NURSE. CM SPOKE WITH THE , DONITA, AND GRANDDAUGHTER OF THE PATIENT. THE DOCTORS HAD HAD A FAMILY CONFERENCE TO DISCUSS PROGNOSIS. HOSPICE PACKET PREPARED. TC TO [facility] THE CONTRACTED GIP PROVIDER FOR [facility]. 1145 REC CB FROM JANE, TRIMMER MEAT. INITIAL REFERAL INFORMATION AND CONTACT PHONE NUMBER FOR PROVIDER. [facility] [phone]. STAFF PROVIDING EMOTIONAL SUPPORT FOR FAMILY. AWAITED ARRIAL OF NURSE. FAMILY WAS VERY UPSET THEY HAD RECEIVED 3 TELEPHONE CALLS FROM HOSPICE RESCHEDULING THE TIME TO MEET. THE PATIENT WAS MORE ALERT AND REPORTEDLY WAS BEGGING TO HAVE TUBE DISCONTINUED. FAMILY TEARFUL, ANXIOUS AND WORRIED ABOUT THE PATIENT. 1700 CM RECEIVED TELEPHONE CALL FROM LUPILLO. CM ADVISED HER TO CALL [facility] AGAIN AND TELL THEM OF ABOUT FAMILY'S ANXIETY. [id number] [facility] ONSITE. PLAN FOR EXTUBATION AND GIP HOSPICE THIS LATE PM. Last DP export: 05/02/18 7:43 p Patient Name: RAMON PIERCE Page [phone] at 0931 All edits/amendments must be made on the electronic document DICTATION DATE: 05/03/18 0930 LEASE OPERATOR: EMILY 05/03/18 0930 RPT#: [id number] DC DATE:05/02/18 STATUS: DIS IN [facility] [address] [place] [address] END OF REPORT
== END 2018-05-02 18:59 | disposition hospice, inpatient (51) | DRG 871 ==
LOC: D.ER 14:49 → D.ICU 17:38 → D.EDHOLD 17:38 → D.ICU 18:03
PROVIDERS: Emergency Medicine; Family Medicine; Internal Medicine Nephrology; Internal Medicine Pulmonary Disease; ADMIT Legal Medicine; ATTEND Legal Medicine
PROC: 5A1945Z Respiratory Ventilation, 24-96 Consecutive Hours (ICD-10-PCS; principal; 2018-05-01)
PROC: 0BH17EZ Insertion of Endotracheal Airway into Trachea, Via Natural or Artificial Opening (ICD-10-PCS; 2018-05-01)
DX: A41.9 Sepsis, unspecified organism (principal); J18.9 Pneumonia, unspecified organism; J96.21 Acute and chronic respiratory failure with hypoxia; I50.21 Acute systolic (congestive) heart failure; J44.1 Chronic obstructive pulmonary disease with (acute) exacerbation; J44.0 Chronic obstructive pulmonary disease with (acute) lower respiratory infection; N17.9 Acute kidney failure, unspecified; E87.2 Acidosis; E87.3 Alkalosis; I42.9 Cardiomyopathy, unspecified; I13.0 Hypertensive heart and chronic kidney disease with heart failure and stage 1 through stage 4 chronic kidney disease, or unspecified chronic kidney disease; I82.442 Acute embolism and thrombosis of left tibial vein; E87.5 Hyperkalemia; D72.829 Elevated white blood cell count, unspecified; I48.91 Unspecified atrial fibrillation; Z66 Do not resuscitate; D64.9 Anemia, unspecified; I95.9 Hypotension, unspecified; N18.2 Chronic kidney disease, stage 2 (mild)

== ENCOUNTER 2018-05-02 18:08 | Inpatient (IN) | payer OTHER ==
[~2018-05-02] VITALS: Ht 157.5 cm; Wt 64.7 kg
[2018-05-02 18:34] VITALS: BP 115/57; BMI 24.9
--- NOTE | 2018-05-02 19:15 | NUR ---
RECEIVED PATIENT CARE, FAMILY AT BEDSIDE, PATIENT ADMITTED TO HOSPICE BY OFFGOING RN. CIGAR MAKING MACHINE OPERATOR MORPHINE SET UP AND ADMINISTERED TO PATIENT SEE EMAR FOR ADMINISTRATION. EDUCATION PROVIDED TO PATIENT AND FAMILY REGARDING EXTUBATION PROCESS AND EXPECTATIONS. ALL QUESTIONS ANSWERED. NOTIFIED RT ABOUT PRE EXTUBATION MEDS BEING GIVEN. RT ACKNOWLEDGED. VITAL SIGNS TAKEN, ALARMS TURNED OFF AND BLOOD PRESSURE CUFF REMOVED FOR PATIENT COMFORT. CPOC
[2018-05-02 20:00] VITALS: BP 99/68
--- NOTE | 2018-05-02 21:30 | NUR ---
RT AT BEDSIDE, PATIENT TOLERATED EXTUBATION. PLACED ON 2L NC AT THIS TIME. FAMILY AT BEDSIDE, PT DENIES PAIN OR DISCOMFORT DENIES NEEDS. CPOC
--- NOTE | 2018-05-02 22:05 | NUR ---
MARIA DEL CARMEN NOTIFIED, REQUESTED A CALL BACK AT TIME OF
--- NOTE | 2018-05-03 01:35 | NUR ---
PATIENT RESTING COMFORTABLY WITH FAMILY AT BEDSIDE DENIES NEEDS AT THIS TIME
--- NOTE | 2018-05-03 02:08 | NUR ---
SENIOR CLIENT ADVISOR NOTIFIED THIS NURSE THAT PATIENT HAD A ROOM AVAILABLE 2107,. CALLED MED II TO GIVE REPORT AWAITING CALL BACK FROM RECEIVING NURSE
--- NOTE | 2018-05-03 03:13 | NUR ---
RECEIVED FROM ICU VIA BED. ALERT/ORIENTED X 3. STATED NAME OF HOSPITAL WRONG, BUT KNOWS SHE IS IN THE HOSP ON 2ND FLOOR. HAS 02 ON AT 2L/NC, FINE CRACKLES NOTED IN UPPER LOBES OF THE LUNGS. SHE IS VERY PALE. HANDS ARE SLIGHTLY SWOLLEN AND 2+ EDEMA NOTED OF THE FEET AROUNG THE ANKLES. STRONG RADIAL AND PEDAL PULSES. IV IN RT FA WITH FISCAL TECHNICIAN MORPHINE AT 1MG/HR CONTINUOUS INFUSING FOR PAIN CONTROL. DENIES PAIN. BLANCHABLE REDNESS OF COCCYX AREA AND NESS AREA ON LEFT ELBOW. HAS AN IV IN L FA SL. WILL LEAVE THE IV FOR BACKUP IN CASE RT IV GOES BAD. HER DAUGHTER AND SON-N-LAW ARE STAYING WITH HER. ORIENTED TO THE ROOM AND CALL LIGHT FOR ANY NEEDS.
[2018-05-03 03:55] VITALS: BP 121/64
--- NOTE | 2018-05-03 08:00 | NUR ---
AM ROUNDS COMPLETED. VSS, AAOX2. NO S/S OF RR DISTRESS. AM MEDS GIVEN. PT ON CONTINUOS DICTAPHONE OPERATOR MORPHINE. PT STATES SHE IS FEELING A LITTLE TIRED THIS AM, BUT DIES ANY FURTHER NEEDS AT THIS TIME. WILL CPOC.CL IN REACH, BED IN LOW, SR UP X2.
--- NOTE | 2018-05-03 08:15 | MORECARE ---
CASE MANAGEMENT DISCHARGE SUMMARY PATIENT: RAMON PIERCE UNIT: [id number] ADM DATE: 05/02/18 AGE: 72 : 47 SEX: F ROOM/BED: D.9327 AUTHOR: IDRIS EDOUARD PHYSICIAN: REFERRING PHYSICIAN: DARCI BARRERA MD DATE OF SERVICE: 05/03/18 Discharge Plan Patient Name: RAMON PIERCE Facility: [facility]:[place] : 1945 Planned Disposition: Home with Hospice Anticipated Discharge Date: Discharge Date: Expected LOS: Initial Reviewer: [email or web address] Initial Review Date: 05/02/2018 Generated: 05/03/18 9:14 am Comments DCP- Discharge Planning Updated by [email or web address]: Boo Goldsmith on 05/03/18 7:[address] Patient Name: RAMON PIERCE Admission Status: Elective Accout number: [id number] Admission Date: 05-02-2018 : 1945 Admission Diagnosis: Attending: DARCI BARRERA Current LOS: 1 Anticipated DC Date: Planned Disposition: Home with Hospice Primary Insurance: [facility] PLANNED EXTERNAL PROVIDER: [facility] Discharge Planning Comments: CM REVIEWED CHART, PT ADMITTED TO [facility]. CM DOES NOT ANTICIPATE ANY NEED OF HOSPITAL CASE MANAGEMENT SERVICES PT RECEIVES ALL CASE MANAGEMENT SERVICES FROM [facility]. Medical Services Assistant: Boo Goldsmith Patient Name: RAMON PIERCE Page [id number] at 0815 All edits/amendments must be made on the electronic document DICTATION DATE: 05/03/18813 AUDIO PRODUCTION INSTRUCTOR: EMILY 05/03/18813 RPT#: [id number] DC DATE: STATUS: ADM IN [facility] [address] [place] [address] END OF REPORT
[2018-05-03 08:51] VITALS: Ht 157.5 cm; Wt 64.7 kg
[2018-05-03 09:11] VITALS: BP 103/53
--- NOTE | 2018-05-03 10:04 | NUR ---
PROVIDER DISCONTINUED 1MG CONTINUOS MORPHIN HANDKERCHIEF PRESSER. ORDERED 0.5MG MORPHINE. MORPHINE CURRENTLY INFUSING @0.5MG. PT REQUESTED FAMILY URIEL AT BEDSIDE. WILL CPOC. CL WEN REACH, BED IN LOW SR UP X2.
[2018-05-03 12:15] VITALS: BP 129/63
--- NOTE | 2018-05-03 12:44 | NUR ---
HOSPICE NURSE FROM [facility] AT PT ROOM. PT DENIES ANY NEEDS AT THIS TIME. WILL CPOC.
[2018-05-03 15:13] VITALS: BP 129/68
--- NOTE | 2018-05-03 19:37 | NUR ---
INTRODUCED SELF TO PATIENT, DAUGHTER AND SPOUSE AT BEDSIDE. RESP EVEN AND UNLABORED, SPOUSE CONCERNED ABOUT RIGHT WRIST IV, SWELLING AND SOME REDNESS. CHANGED IV SITE BACK TO LEFT FA WITH [employer] CHECKER GOING. NO FURTHER NEEDS AT THIS TIME.
[2018-05-03 20:54] VITALS: BP 111/68
[2018-05-04 05:53] VITALS: BP 117/74
--- NOTE | 2018-05-04 07:35 | NUR ---
PT LAYING IN BED RESTING. FAMILY AT BEDSIDE. INTRODUCED SELF NURSE FOR THE DAY. PT DENIES PAIN AT THIS TIME. 2L O2 NOTED VIA NC. IV TO L FOREARM PATENT, NO REDNESS OR EDEMA. NO FURTHER CONCERNS AT THIS TIME. BED LOWERED AND LOCKED. CL IN REACH. WILL CPOC.
[2018-05-04] MEDS ORDERED: KADIAN10 MG PO (08:51)
[2018-05-04] MEDS ORDERED: MORPHINE IMMEDI30 M1 PO (08:53)
[2018-05-04 10:04] VITALS: BP 130/77
--- NOTE | 2018-05-04 11:00 | MORECARE ---
CASE MANAGEMENT DISCHARGE SUMMARY PATIENT: RAMON PIERCE UNIT: [id number] ADM DATE: 05/02/18 AGE: 72 : [birth year] SEX: F ROOM/BED: D.2109 AUTHOR: IDRIS EDOUARD PHYSICIAN: REFERRING PHYSICIAN: DARCI BARRERA MD DATE OF SERVICE: 05/04/18 Discharge Plan Patient Name: RAMON PIERCE Facility: [facility]:[place] : 1945 Planned Disposition: Home with Hospice Anticipated Discharge Date: 05/04/18 Discharge Date: Expected LOS: 2 Initial Reviewer: [email or web address] Initial Review Date: 05/02/2018 Generated: 05/04/18 12:00 pm Comments DCP- Discharge Planning Updated by [email or web address]: Boo Goldsmith on 05/03/18 7:[address] Patient Name: RAMON PIERCE Admission Status: Elective Accout number: [id number] Admission Date: 05-02-2018 : 1945 Admission Diagnosis: Attending: DARCI BARRERA Current LOS: 1 Anticipated DC Date: Planned Disposition: Home with Hospice Primary Insurance: [facility] PLANNED EXTERNAL PROVIDER: [facility] Discharge Planning Comments: CM REVIEWED CHART, PT ADMITTED TO [facility]. CM DOES NOT ANTICIPATE ANY NEED OF HOSPITAL CASE MANAGEMENT SERVICES PT RECEIVES ALL CASE MANAGEMENT SERVICES FROM [facility]. Principal Clerk Typist: Boo Goldsmith Last DP export: 05/03/18 7:14 a Patient Name: RAMON PIERCE Page [phone] at 1100 All edits/amendments must be made on the electronic document DICTATION DATE: 05/04/18 1059 REHABILITATION COORDINATOR: EMILY 05/04/18 1059 RPT#: [id number] DC DATE: STATUS: ADM IN [facility] [address] [place] [address] END OF REPORT
--- NOTE | 2018-05-04 11:20 | NUR ---
PER PHONE CALL FROM JILL/RN WITH [facility] DISREGARD SCRIPTS FOR MORPHINE THEY WERE ALREADY SENT TO PHARMACY. PRESCRIPTIONS WILL BE PLACED IN SHREDDER BOX
--- NOTE | 2018-05-04 11:50 | NUR ---
DC GIVEN TO AND PT. SIGNED DC. CALLED JILL WITH [facility]. PER JUDY MELCHOR TO BE LEFT IN.
--- NOTE | 2018-05-04 13:18 | NUR ---
ATIVAN GIVEN TO PT FOR RIDE HOME KIM EMPTIED IV TO R FOREARM AND L FOREARM REMOVED. BOTH IV TIPS INTACT.
--- NOTE | 2018-05-04 13:39 | NUR ---
PT DC HOME VIA AMBULANCE/STRETCHER
== END 2018-05-04 13:39 | disposition home health service (06) | DRG 951 ==
LOC: D.ICU 18:08 → D.M2 19:01
PROVIDERS: ADMIT Legal Medicine; ATTEND Legal Medicine
DX: Z51.5 Encounter for palliative care (principal)